=== PATIENT | male | born 1945 | race Caucasian/White ===

== ENCOUNTER 2019-03-27 06:19 | Emergency (ER) | payer MEDICARE, BC ==
[2019-03-27] MEDS ORDERED: SODIUM CHLORIDE 0.9% 1,000 ML IV STA ×2 (06:39)
--- NOTE | 2019-03-27 06:42 | ED ---
Fall HPI - General Chief Complaint: Fall Stated Complaint: fall-head injury Time Seen by Provider: 03/27/19 06:29 Source: patient, RN notes reviewed, old records reviewed Mode of arrival: ambulatory - History of Present Illness Initial Comments: Patient says 73-year-old male who presents emergency department today for evaluation for concerns for fall. Patient reports that he was standing at his chair, felt off balance trying to put the foot rest down on the chair, and fell to the ground. He struck his head on the edge of the windowsill. His awoke to loud noises and noted that Patient was had blood coming from the right side of the scalp. Patient is on aspirin. He reports that he has been feeling intermittently dizzy since the first of the year with multiple bouts of vertigo. Patient denies any chest pain at this time. He reports that he does have a history of tremor. Past medical history is significant for coronary disease, diabetes, hyperlipidemia and hypertension and MIs a prostate disorder. - Related Data Home Medications Medication Instructions Recorded Confirmed ALPRAZolam [Xanax] 0.5 mg PO DAILY PRN 10/26/13 10/26/13 Aspirin 81 mg PO DAILY 10/26/13 10/26/13 Atorvastatin [Lipitor] 80 mg PO HS 10/26/13 10/26/13 Enalapril [Vasotec] 5 mg PO DAILY 10/26/13 10/26/13 Metoprolol Tartrate [Lopressor] 25 mg PO BID 10/26/13 10/26/13 Omeprazole [PriLOSEC] 20 mg PO AC-BRKFST 10/26/13 10/26/13 Tamsulosin HCl [Flomax] 0.4 mg PO DAILY 10/26/13 10/26/13 metFORMIN HCL [Glucophage] 500 mg PO BID 10/26/13 10/26/13 Allergies Allergy/AdvReac Type Severity Reaction Status Date / Time No Known Allergies Allergy Verified 03/27/19 06:32 Review of Systems ROS Statement: Those systems with pertinent positive or pertinent negative responses have been documented in the HPI. ROS Other: All systems not noted in ROS Statement are negative. Past Medical History Past Medical History: Coronary Artery Disease (CAD), Diabetes Mellitus, Hyperlipidemia, Hypertension, Myocardial Infarction ([place]), Prostate Disorder Additional Past Medical History / Comment(s): ulcers History of Any Multi-Drug Resistant Organisms: None Reported Past Surgical History: Back Surgery, Cholecystectomy, Heart Catheterization With Stent Additional Past Surgical History / Comment(s): fistula Past Psychological History: No Psychological Hx Reported Smoking Status: Never smoker Past Alcohol Use History: None Reported Past Drug Use History: None Reported General Exam - General Exam Comments Initial Comments: 73-year-old male. Alert and oriented 3. No significant distress. Anxious, and shaky. Limitations: no limitations General appearance: alert, in no apparent distress Head exam: Present: atraumatic, normocephalic, normal inspection, other (Patient has a 1 cm abrasion over the right posterior scalp and parietal scalp. The wound is closed and bleeding is well-controlled this time.) Eye exam: Present: normal appearance, PERRL, EOMI. Absent: scleral icterus, conjunctival injection, periorbital swelling ENT exam: Present: normal exam, mucous membranes moist Neck exam: Present: normal inspection. Absent: tenderness, meningismus, lymphadenopathy Respiratory exam: Present: normal lung sounds bilaterally. Absent: respiratory distress, wheezes, rales, rhonchi, stridor Cardiovascular Exam: Present: regular rate, normal rhythm, normal heart sounds. Absent: systolic murmur, diastolic murmur, rubs, gallop, clicks GI/Abdominal exam: Present: soft, normal bowel sounds. Absent: distended, tenderness, guarding, rebound, rigid Extremities exam: Present: normal inspection, full ROM, normal capillary refill. Absent: tenderness, pedal edema, joint swelling, calf tenderness Back exam: Present: normal inspection Neurological exam: Present: alert, oriented X3, CN II-XII intact Psychiatric exam: Present: normal affect, normal mood Skin exam: Present: warm, dry, intact, normal color. Absent: rash Course Vital Signs 03/27/19 03/27/19 06:27 07:37 Temperature 97.9 F 99.3 F Pulse Rate 102 H 97 Respiratory 20 16 Rate Blood Pressure 171/68 151/90 O2 Sat by Pulse 99 96 Oximetry Medical Decision Making - Medical Decision Making Physical 73-year-old male, alert and oriented 3. Presented to the emergency department today after feeling off balance and head injury. Patient has no neurological deficits. He does report a history of vertigo and really for the past 2 months. Patient had extensive workup. EKG shows no acute changes. Blo od work was otherwise unremarkable including a negative troponin. Patient's CT of the brain and C-spine are reviewed and negative for any acute intracranial abnormality. Chest x-ray is negative for any acute process. Patient does have a small abrasion over the right scalp but this is too small to close with jess. Patient was ambulating without difficulty to the bathroom while in the ED. He states he has no further pain and besides mild headache at this time. I discussed the Patient did suffer from a mild concussion. Take Motrin or Tylenol for pain. I discussed return parameters and close PCP follow-up. Patient is agreeable to treatment plan will comply. - Lab Data Result diagrams: 03/27/19 06:46 03/27/19 06:46 Lab Results 03/27/19 03/27/19 03/27/19 Range/Units 06:46 06:46 06:46 WBC 7.6 (3.8-10.6) k/uL RBC 4.67 (4.30-5.90) m/uL Hgb 14.2 (13.0-17.5) gm/dL Hct 43.8 (39.0-53.0) % MCV 94.0 (80.0-100.0) fL MCH 30.5 (25.0-35.0) pg MCHC 32.5 (31.0-37.0) g/dL RDW 12.8 (11.5-15.5) % Plt Count 228 (150-450) k/uL Neutrophils % 57 % Lymphocytes % 35 % Monocytes % 5 % Eosinophils % 2 % Basophils % 1 % Neutrophils # 4.3 (1.3-7.7) k/uL Lymphocytes # 2.6 (1.0-4.8) k/uL Monocytes # 0.4 (0-1.0) k/uL Eosinophils # 0.1 (0-0.7) k/uL Basophils # 0.1 (0-0.2) k/uL PT 9.6 (9.0-12.0) sec INR 0.9 (<1.2) APTT 22.9 (22.0-30.0) sec Sodium 139 (137-145) mmol/L Potassium 4.0 (3.5-5.1) mmol/L Chloride 104 (98-107) mmol/L Carbon Dioxide 22 (22-30) mmol/L Anion Gap 13 mmol/L BUN 19 (9-20) mg/dL Creatinine 1.00 (0.66-1.25) mg/dL Est GFR (CKD-EPI)AfAm 85 (>60 ml/min/1.73 sqM) Est GFR (CKD-EPI)NonAf 73 (>60 ml/min/1.73 sqM) Glucose 189 H (74-99) mg/dL POC Glucose (mg/dL) (75-99) mg/dL POC Glu Filler And Trimmer ID Calcium 9.5 (8.4-10.2) mg/dL Magnesium 1.8 (1.6-2.3) mg/dL Total Bilirubin 0.5 (0.2-1.3) mg/dL AST 27 (17-59) U/L ALT 27 (4-49) U/L Alkaline Phosphatase 87 (38-126) U/L Troponin I (0.000-0.034) ng/mL Total Protein 6.9 (6.3-8.2) g/dL Albumin 4.0 (3.5-5.0) g/dL Urine Color Urine Appearance (Clear) Urine pH (5.0-8.0) Ur Specific [place] (1.001-1.035) Urine Protein (Negative) Urine Glucose (UA) (Negative) Urine Ketones (Negative) Urine Blood (Negative) Urine Nitrite (Negative) Urine Bilirubin (Negative) Urine Urobilinogen (<2.0) mg/dL Ur Leukocyte Esterase (Negative) Urine RBC (0-5) /hpf Urine WBC (0-5) /hpf Ur Squamous Epith Cells (0-4) /hpf Urine Mucus (None) /hpf 03/27/19 03/27/19 03/27/19 Range/Units 06:46 07:28 07:47 WBC (3.8-10.6) k/uL RBC (4.30-5.90) m/uL Hgb (13.0-17.5) gm/dL Hct (39.0-53.0) % MCV (80.0-100.0) fL MCH (25.0-35.0) pg MCHC (31.0-37.0) g/dL RDW (11.5-15.5) % Plt Count (150-450) k/uL Neutrophils % % Lymphocytes % % Monocytes % % Eosinophils % % Basophils % % Neutrophils # (1.3-7.7) k/uL Lymphocytes # (1.0-4.8) k/uL Monocytes # (0-1.0) k/uL Eosinophils # (0-0.7) k/uL Basophils # (0-0.2) k/uL PT (9.0-12.0) sec INR (<1.2) APTT (22.0-30.0) sec Sodium (137-145) mmol/L Potassium (3.5-5.1) mmol/L Chloride (98-107) mmol/L Carbon Dioxide (22-30) mmol/L Anion Gap mmol/L BUN (9-20) mg/dL Creatinine (0.66-1.25) mg/dL Est GFR (CKD-EPI)AfAm (>60 ml/min/1.73 sqM) Est GFR (CKD-EPI)NonAf (>60 ml/min/1.73 sqM) Glucose (74-99) mg/dL POC Glucose (mg/dL) 204 H (75-99) mg/dL POC Glu Filler And Trimmer ID Lena Felder Calcium (8.4-10.2) mg/dL Magnesium (1.6-2.3) mg/dL Total Bilirubin (0.2-1.3) mg/dL AST (17-59) U/L ALT (4-49) U/L Alkaline Phosphatase (38-126) U/L Troponin I <0.012 (0.000-0.034) ng/mL Total Protein (6.3-8.2) g/dL Albumin (3.5-5.0) g/dL Urine Color Yellow Urine Appearance Clear (Clear) Urine pH 5.0 (5.0-8.0) Ur Specific [place] 1.024 (1.001-1.035) Urine Protein Negative (Negative) Urine Glucose (UA) 3+ H (Negative) Urine Ketones Trace H (Negative) Urine Blood Negative (Negative) Urine Nitrite Negative (Negative) Urine Bilirubin Negative (Negative) Urine Urobilinogen <2.0 (<2.0) mg/dL Ur Leukocyte Esterase Small H (Negative) Urine RBC 3 (0-5) /hpf Urine WBC 4 (0-5) /hpf Ur Squamous Epith Cells <1 (0-4) /hpf Urine Mucus Rare H (None) /hpf 03/27/19 07:04 EKG performed at 6:40 AM shows normal sinus rhythm normal EKG. Ventricular rate of 70 bpm. Full is 192 ms. QRS duration is 84 ms. QT QTc is 382/435 ms. - Radiology Data Radiology results: report reviewed Chest x-rays negative for any acute cardio pulmonary disease. Clearing of pneumonia and atelectasis on the right lower lobe compared to old exam. CT shows no acute fracture dislocation evident cervical spine. Moderate multilevel malalignment and degenerative basis. No acute intracranial hemorrhage or mass effect or midline shift is seen. Posterior right scalp hematoma measuring 5 mm in thickness. Disposition Clinical Impression: Fall, Head injury, Scalp abrasion Disposition: HOME SELF-CARE Condition: Good Instructions (If sedation given, give patient instructions): Concussion (ED) Additional Instructions: Patient advised to rest, remain hydrated today. Recommended following up with the primary care physician within the next 1-2 days. Return to the emergency d epartment if any alarming signs or symptoms occur. Recommended he can Tylenol or Motrin for headache or pain. Is patient prescribed a controlled substance at d/c from ED?: No Referrals: Nicholas Padilla MD [Primary Care Provider] - 1-2 days Time of Disposition: 09:03
[2019-03-27 06:56] LABS: Basophils # (A) 0.1 k/uL (0-0.2); Basophils % (A) 1 %; Eosinophils # (A) 0.1 k/uL (0-0.7); Eosinophils % (A) 2 %; HCT 43.8 % (39.0-53.0); HGB 14.2 gm/dL (13.0-17.5); Lymphocytes # (A) 2.6 k/uL (1.0-4.8); Lymphocytes % (A) 35 %; MCH 30.5 pg (25.0-35.0); MCHC 32.5 g/dL (31.0-37.0); Mean Platelet Volume 7.5; Monocytes # (A) 0.4 k/uL (0-1.0); Monocytes % (A) 5 %; Neutrophils # (A) 4.3 k/uL (1.3-7.7); Neutrophils % (A) 57 %; Platelet Count 228 k/uL (150-450); RBC 4.67 m/uL (4.30-5.90); RDW 12.8 % (11.5-15.5); WBC 7.6 k/uL (3.8-10.6)
--- NOTE | 2019-03-27 07:07 | XR ---
EXAMINATION TYPE: XR chest 2V DATE OF EXAM: 03/27/2019 COMPARISON: 01/21/2013 HISTORY: Syncope TECHNIQUE: FINDINGS: There is no heart failure nor confluent pneumonic infiltrate. Costophrenic angles are clear . Bony thorax is intact. IMPRESSION: No active cardiopulmonary disease. There is clearing of the pneumonia and atelectasis rig ht lower lobe compared to old exam.
[2019-03-27 07:10] LABS: Calcium 9.5 mg/dL (8.4-10.2); INR 0.9 (<1.2); Magnesium 1.8 mg/dL (1.6-2.3); Partial Thromboplastin Time 22.9 sec (22.0-30.0); Prothrombin Time 9.6 sec (9.0-12.0); Total Bilirubin 0.5 mg/dL (0.2-1.3); Total Protein 6.9 g/dL (6.3-8.2)
[2019-03-27 07:30] LABS: Glucose,Whole Blood 204 mg/dL (75-99)
[2019-03-27 07:37] VITALS: RESP 16; TEMP 99.3
[2019-03-27 08:08] LABS: Appearance,Urine Clear (Clear); Bilirubin,Urine Negative (Negative); Blood,Urine Negative (Negative); Color,Urine Yellow; Glucose,Urine (UA) 3+ (Negative); Ketones,Urine Trace (Negative); Leukocyte Esterase,Urine Small (Negative); Mucus,Urine Rare /hpf; Nitrite,Urine Negative (Negative); Protein,Urine Negative (Negative); RBC,Urine 3 /hpf (0-5); Specific Gravity,Urine 1.024 (1.001-1.035); Squamous Epithelial Cell,Urine <1 /hpf (0-4); Urobilinogen,Urine <2.0 mg/dL (<2.0); WBC,Urine 4 /hpf (0-5)
--- NOTE | 2019-03-27 08:24 | CT ---
EXAMINATION TYPE: CT brain rahul garrido DATE OF EXAM: 03/27/2019 COMPARISON: NONE HISTORY: fall, head and neck pain. Facial laceration. CT DLP: 1621.8 mGycm. Automated Exposure Control for Dose Reduction was Utilized. TECHNIQUE: CT scan of the head and cervical spine are performed without contrast. FINDINGS: There is no acute intracranial hemorrhage, mass effect, or midline shift identified. The ventricles and sulci are symmetrically prominent compatible with age-related. The globes are intact and the visualized sinuses are clear. Punctate focus of subcutaneous emphysema in the right posterio r occipital scalp with 5 mm greatest thickness scalp contusion and small hematoma. No calvarial fract ure seen deep to this injury. Cervical spine is visualized in its entirety from C1 through upper thoracic levels and demonstrates s atisfactory vertebral body heights. Grade 1 anterolisthesis of C3 on C4 and minimal retrolisthesis o f C4 on C5 and C5 on C6. Posterior disc osteophyte complexes from C4 through C7. Multilevel uncoverte bral hypertrophy and facet arthropathy with variable degrees of neural foraminal narrowing. Degenerat shaan narrowing of the atlantodental interval. Prevertebral soft tissue appears within normal limits. The C1-C2 articulation is unremarkable. Incidentally noted small lipoma of the left upper thoracic s kin surface. Extensive atheromatous changes of the carotid arteries. IMPRESSION: 1. There is no acute fracture or dislocation evident in the cervical spine. Moderate multilevel malal ignment, likely on a degenerative basis. 2. No acute intracranial hemorrhage, mass effect, or midline shift is seen. 3. Posterior right occipital scalp hematoma measuring 5 mm in greatest thickness.
[2019-03-27 09:31] VITALS: BP 143/73; PULSE 76
== END 2019-03-27 09:25 | disposition home or self-care (01) ==
LOC: EC 06:19
DX: S00.01XA Abrasion of scalp, initial encounter (principal); R42 Dizziness and giddiness; I25.10 Atherosclerotic heart disease of native coronary artery without angina pectoris; E11.9 Type 2 diabetes mellitus without complications; E78.5 Hyperlipidemia, unspecified; I10 Essential (primary) hypertension; I25.2 Old myocardial infarction; N42.9 Disorder of prostate, unspecified; Z79.82 Long term (current) use of aspirin; Z79.84 Long term (current) use of oral hypoglycemic drugs; Z79.899 Other long term (current) drug therapy; Z86.69 Personal history of other diseases of the nervous system and sense organs; Z95.5 Presence of coronary angioplasty implant and graft; W07.XXXA Fall from chair, initial encounter; Y93.89 Activity, other specified; Y92.009 Unspecified place in unspecified non-institutional (private) residence as the place of occurrence of the external cause
CPT/HCPCS: 36415; 70450; 71046; 72125; 80053; 81001; 83735; 84484; 85025; 85610; 85730; 93005; 96360; 99284

== ENCOUNTER 2019-08-24 09:49 | Emergency (ER) | payer MEDICARE, BC ==
[2019-08-24] MEDS ORDERED: MORPHINE SULFATE 4 MG/ML SYRINGE IV STA (10:06)
[2019-08-24] MEDS ORDERED: ONDANSETRON 4 MG/2 ML VIAL IVP STA (10:06)
[2019-08-24] MEDS ORDERED: KETOROLAC 30 MG/ML 1 ML VIAL IVP STA (10:06)
[2019-08-24] MEDS ORDERED: SODIUM CHLORIDE 0.9% 2,000 ML IV STA (10:06)
[2019-08-24] MEDS ORDERED: SODIUM CHLORIDE 0.9% 1,000 ML IV STA (10:06)
--- NOTE | 2019-08-24 10:09 | ED ---
Abdominal Pain HPI - General Chief Complaint: Abdominal Pain Stated Complaint: abd/back pain Time Seen by Provider: 08/24/19 09:56 Source: patient, family, RN notes reviewed, old records reviewed Mode of arrival: wheelchair Limitations: no limitations - History of Present Illness Initial Comments: 73-year-old male presents emergency department today with onset of left lower quadrant abdominal pain with radiation towards his back starting this morning. [facility] bowel movements. He has been complaining of increased burping did have an episode of vomiting today. Patient has had no recorded fevers or chills. He reports he's had a history of kidney stones in the past and history of diverticulitis. Patient states that he has had no chest pain or worsening shortness of breath. - Related Data Home Medications Medication Instructions Recorded Confirmed ALPRAZolam [Xanax] 0.5 mg PO BID 10/26/13 08/24/19 Aspirin 81 mg PO DAILY 10/26/13 08/24/19 Metoprolol Tartrate [Lopressor] 25 mg PO BID 10/26/13 08/24/19 Tamsulosin HCl [Flomax] 0.4 mg PO DAILY 10/26/13 08/24/19 metFORMIN HCL [Glucophage] 500 mg PO BID 10/26/13 08/24/19 Atorvastatin [Lipitor] 20 mg PO Q48H 08/24/19 08/24/19 Atorvastatin [Lipitor] 40 mg PO Q48H 08/24/19 08/24/19 Enalapril [Vasotec] 10 mg PO DAILY 08/24/19 08/24/19 Multivitamins, Thera [Multivitamin 1 tab PO DAILY 08/24/19 08/24/19 (formulary)] [place]-3 Acid Ethyl Esters [Lovaza] 2 gm PO BID 08/24/19 08/24/19 Allergies Allergy/AdvReac Type Severity Reaction Status Date / Time No Known Allergies Allergy Verified 08/24/19 10:46 Review of Systems ROS Statement: Those systems with pertinent positive or pertinent negative responses have been documented in the HPI. ROS Other: All systems not noted in ROS Statement are negative. Past Medical History Past Medical History: Coronary Artery Disease (CAD), Diabetes Mellitus, Hyperlipidemia, Hypertension, Myocardial Infarction ([place]), Prostate Disorder Additional Past Medical History / Comment(s): ulcers History of Any Multi-Drug Resistant Organisms: None Reported Past Surgical History: Back Surgery, Cholecystectomy, Heart Catheterization With Stent Additional Past Surgical History / Comment(s): fistula Past Psychological History: No Psychological Hx Reported Smoking Status: Never smoker Past Alcohol Use History: None Reported Past Drug Use History: None Reported General Exam - General Exam Comments Initial Comments: 73 -year-old male. Limitations: no limitations General appearance: alert, in no apparent distress Head exam: Present: atraumatic, normocephalic, normal inspection Eye exam: Present: normal appearance, PERRL, EOMI. Absent: scleral icterus, conjunctival injection, periorbital swelling ENT exam: Present: normal exam, mucous membranes moist Neck exam: Present: normal inspection. Absent: tenderness, meningismus, lymphadenopathy Respiratory exam: Present: normal lung sounds bilaterally. Absent: respiratory distress, wheezes, rales, rhonchi, stridor Cardiovascular Exam: Present: regular rate, normal rhythm, normal heart sounds. Absent: systolic murmur, diastolic murmur, rubs, gallop, clicks GI/Abdominal exam: Present: soft, tenderness (LLQ tenderness), normal bowel sounds. Absent: distended, guarding, rebound, rigid Extremities exam: Present: normal inspection, full ROM, normal capillary refill. Absent: pedal edema, joint swelling, calf tenderness Back exam: Present: normal inspection Neurological exam: Present: alert, oriented X3, CN II-XII intact Psychiatric exam: Present: normal affect, normal mood Skin exam: Present: warm, dry, intact, normal color. Absent: rash Course Vital Signs 08/24/19 08/24/19 08/24/19 09:52 11:53 12:47 Temperature 97.8 F Pulse Rate 85 77 76 Respiratory 18 18 18 Rate Blood Pressure 148/88 138/79 135/88 O2 Sat by Pulse 96 95 96 Oximetry Medical Decision Making - Medical Decision Making 73-year-old male presents emergency department today for evaluation for onset of left-sided flank pain onset of nausea and vomiting this morning. Patient had some left lower quadrant tenderness. Is benign includes upper obtained. Patient was found to have hematuria. Patient has no signs of infection. Mildly increased creatinine at this time. CT abdomen and pelvis without contrast was completed shows recently passed left-sided stone with evidence of stones within the urinary bladder. There is mild hydronephrosis on the left side from the recently passed stone. On reevaluation after fluids and pain medication he is resting comfortably in bed states she has no further pain. I discussed that the discharging the Patient with a short course of pain medicine and he is starting taking Flomax. Advised to continue this medication and return if there is any worsening signs or symptoms. Patient and patient's are agreeable treatment plan. Discharged with a strainer. - Lab Data Result diagrams: 08/24/19 10:14 08/24/19 10:14 Lab Results 08/24/19 08/24/19 08/24/19 Range/Units 10:14 10:14 10:14 WBC 10.2 (3.8-10.6) k/uL RBC 4.80 (4.30-5.90) m/uL Hgb 14.9 (13.0-17.5) gm/dL Hct 45.0 (39.0-53.0) % MCV 93.8 (80.0-100.0) fL MCH 31.0 (25.0-35.0) pg MCHC 33.1 (31.0-37.0) g/dL RDW 12.7 (11.5-15.5) % Plt Count 267 (150-450) k/uL Neutrophils % 79 % Lymphocytes % 17 % Monocytes % 4 % Eosinophils % 1 % Basophils % 0 % Neutrophils # 8.0 H (1.3-7.7) k/uL Lymphocytes # 1.7 (1.0-4.8) k/uL Monocytes # 0.4 (0-1.0) k/uL Eosinophils # 0.1 (0-0.7) k/uL Basophils # 0.0 (0-0.2) k/uL PT 10.1 (9.0-12.0) sec INR 1.0 (<1.2) APTT 22.9 (22.0-30.0) sec Sodium 138 (137-145) mmol/L Potassium 4.6 (3.5-5.1) mmol/L Chloride 102 (98-107) mmol/L Carbon Dioxide 23 (22-30) mmol/L Anion Gap 13 mmol/L BUN 20 (9-20) mg/dL Creatinine 1.26 H (0.66-1.25) mg/dL Est GFR (CKD-EPI)AfAm 64 (>60 ml/min/1.73 sqM) Est GFR (CKD-EPI)NonAf 55 (>60 ml/min/1.73 sqM) Glucose 237 H (74-99) mg/dL Calcium 9.9 (8.4-10.2) mg/dL Total Bilirubin 0.8 (0.2-1.3) mg/dL AST 59 (17-59) U/L ALT 58 H (4-49) U/L Alkaline Phosphatase 78 (38-126) U/L Total Protein 7.3 (6.3-8.2) g/dL Albumin 4.5 (3.5-5.0) g/dL Amylase 51 (30-110) U/L Lipase 168 (23-300) U/L Urine Color Urine Appearance (Clear) Urine pH (5.0-8.0) Ur Specific [place] (1.001-1.035) Urine Protein (Negative) Urine Glucose (UA) (Negative) Urine Ketones (Negative) Urine Blood (Negative) Urine Nitrite (Negative) Urine Bilirubin (Negative) Urine Urobilinogen (<2.0) mg/dL Ur Leukocyte Esterase (Negative) Urine RBC (0-5) /hpf Urine WBC (0-5) /hpf Ur Squamous Epith Cells (0-4) /hpf Urine Mucus (None) /hpf 08/24/19 Range/Units 11:38 WBC (3.8-10.6) k/uL RBC (4.30-5.90) m/uL Hgb (13.0-17.5) gm/dL Hct (39.0-53.0) % MCV (80.0-100.0) fL MCH (25.0-35.0) pg MCHC (31.0-37.0) g/dL RDW (11.5-15.5) % Plt Count (150-450) k/uL Neutrophils % % Lymphocytes % % Monocytes % % Eosinophils % % Basophils % % Neutrophils # (1.3-7.7) k/uL Lymphocytes # (1.0-4.8) k/uL Monocytes # (0-1.0) k/uL Eosinophils # (0-0.7) k/uL Basophils # (0-0.2) k/uL PT (9.0-12.0) sec INR (<1.2) APTT (22.0-30.0) sec Sodium (137-145) mmol/L Potassium (3.5-5.1) mmol/L Chloride (98-107) mmol/L Carbon Dioxide (22-30) mmol/L Anion Gap mmol/L BUN (9-20) mg/dL Creatinine (0.66-1.25) mg/dL Est GFR (CKD-EPI)AfAm (>60 ml/min/1.73 sqM) Est GFR (CKD-EPI)NonAf (>60 ml/min/1.73 sqM) Glucose (74-99) mg/dL Calcium (8.4-10.2) mg/dL Total Bilirubin (0.2-1.3) mg/dL AST (17-59) U/L ALT (4-49) U/L Alkaline Phosphatase (38-126) U/L Total Protein (6.3-8.2) g/dL Albumin (3.5-5.0) g/dL Amylase (30-110) U/L Lipase (23-300) U/L Urine Color Yellow Urine Appearance Clear (Clear) Urine pH 5.0 (5.0-8.0) Ur Specific [place] 1.021 (1.001-1.035) Urine Protein Trace H (Negative) Urine Glucose (UA) 2+ H (Negative) Urine Ketones 1+ H (Negative) Urine Blood Moderate H (Negative) Urine Nitrite Negative (Negative) Urine Bilirubin Negative (Negative) Urine Urobilinogen <2.0 (<2.0) mg/dL Ur Leukocyte Esterase Trace H (Negative) Urine RBC 126 H (0-5) /hpf Urine WBC 4 (0-5) /hpf Ur Squamous Epith Cells 1 (0-4) /hpf Urine Mucus Rare H (None) /hpf - Radiology Data Radiology results: report reviewed Suspect recently passed left-sided renal calculus with mild residual hydro nephrosis noted. Numerous colliculi within the urinary bladder. Prostate gland enlargement. fixed hiatal hernia. Disposition Clinical Impression: Acute flank pain, Bladder stone Disposition: HOME SELF-CARE Condition: Good Instructions (If sedation given, give patient instructions): Flank Pain (ED), Ureteral Stones (ED) Additional Instructions: Please use medication as discussed and continue your flomax. Please follow up with family doctor if symptoms have not improved over the next two days. Please return to the emergency room if your symptoms increase or worsen or for any other concerns. Is patient prescribed a controlled substance at d/c from ED?: No Referrals: Nicholas Padilla MD [Primary Care Provider] - 1-2 days Time of Disposition: 13:13
[2019-08-24 10:44] LABS: Basophils % (A) 0 %; Eosinophils # (A) 0.1 k/uL (0-0.7); Eosinophils % (A) 1 %; HGB 14.9 gm/dL (13.0-17.5); Lymphocytes # (A) 1.7 k/uL (1.0-4.8); Lymphocytes % (A) 17 %; MCHC 33.1 g/dL (31.0-37.0); MCV 93.8 fL (80.0-100.0); Mean Platelet Volume 8.1; Monocytes # (A) 0.4 k/uL (0-1.0); Monocytes % (A) 4 %; Neutrophils % (A) 79 %; Platelet Count 267 k/uL (150-450); RDW 12.7 % (11.5-15.5); WBC 10.2 k/uL (3.8-10.6)
[2019-08-24 10:46] VITALS: RESP 18
[2019-08-24 10:51] LABS: Partial Thromboplastin Time 22.9 sec (22.0-30.0); Prothrombin Time 10.1 sec (9.0-12.0)
[2019-08-24 10:53] LABS: Albumin 4.5 g/dL (3.5-5.0); Calcium 9.9 mg/dL (8.4-10.2); Potassium 4.6 mmol/L (3.5-5.1); Total Bilirubin 0.8 mg/dL (0.2-1.3); Total Protein 7.3 g/dL (6.3-8.2)
[2019-08-24 12:41] LABS: Appearance,Urine Clear (Clear); Bilirubin,Urine Negative (Negative); Blood,Urine Moderate (Negative); Color,Urine Yellow; Glucose,Urine (UA) 2+ (Negative); Ketones,Urine 1+ (Negative); Leukocyte Esterase,Urine Trace (Negative); Mucus,Urine Rare /hpf; Nitrite,Urine Negative (Negative); Protein,Urine Trace (Negative); RBC,Urine 126 /hpf (0-5); Specific Gravity,Urine 1.021 (1.001-1.035); Squamous Epithelial Cell,Urine 1 /hpf (0-4); Urobilinogen,Urine <2.0 mg/dL (<2.0); WBC,Urine 4 /hpf (0-5)
--- NOTE | 2019-08-24 12:54 | CT ---
EXAMINATION TYPE: CT abdomen pelvis wo con DATE OF EXAM: 08/24/2019 COMPARISON: 11/06/2013 HISTORY: LLQ pain, Lt flank pain CT DLP: 1108 mGycm Examination of the solid and hollow viscera is limited given the lack of contrast. FINDINGS: LUNG BASES: No evidence for nodule. No evidence for infiltrate. Moderate fixed hiatal hernia noted. LIVER/GB: The gallbladder is unremarkable. No space-occupying hepatic lesion. PANCREAS: No pancreatic mass identified. No inflammatory process seen. SPLEEN: No evidence for splenomegaly. No intrasplenic lesions seen. ADRENALS: No adrenal nodules identified. No evidence for thickening. KIDNEYS: Numerous calculi identified within the urinary bladder. Mild prominence of left renal collec ting system without obstructing calculus likely reflect recently passed calculus. No renal calculi id entified at this time. No renal masses identified. BOWEL: Appendix has a normal appearance. No evidence of bowel obstruction. No inflammatory process. M oderate sigmoid diverticulosis without diverticulitis. Lymph nodes: No evidence for adenopathy greater than 1 cm. Abdominal aorta: Atheromatous changes seen. No evidence for aneurysm. Genital organs: Prostate gland enlargement noted. Other: Fat-containing umbilical hernia. IMPRESSION: 1. Suspect recently passed left-sided renal calculus with mild residual hydronephrosis noted. 2. Numerous calculi within the urinary bladder. 3 prostate gland enlargement. 4. Fixed hiatal hernia.
[2019-08-24] MEDS ORDERED: ONDANSETRON 4 MG ODT STARTER PACK 2 TAB BTL PO STA (13:15)
[2019-08-24] MEDS ORDERED: ACET/COD 300 MG/30 MG STARTER PACK 6 TAB BTL PO STA (13:15)
[2019-08-24 13:52] VITALS: BP 134/78; PULSE 68; TEMP 98.4
== END 2019-08-24 14:13 | disposition home or self-care (01) ==
LOC: EC 09:49
DX: N21.0 Calculus in bladder (principal); N13.30 Unspecified hydronephrosis; I25.10 Atherosclerotic heart disease of native coronary artery without angina pectoris; E11.9 Type 2 diabetes mellitus without complications; E78.5 Hyperlipidemia, unspecified; I10 Essential (primary) hypertension; I25.2 Old myocardial infarction; N40.0 Benign prostatic hyperplasia without lower urinary tract symptoms; Z79.82 Long term (current) use of aspirin; Z79.84 Long term (current) use of oral hypoglycemic drugs; Z79.899 Other long term (current) drug therapy; Z95.5 Presence of coronary angioplasty implant and graft; Z87.442 Personal history of urinary calculi; Z90.49 Acquired absence of other specified parts of digestive tract
CPT/HCPCS: 36415; 80053; 82150; 83690; 85025; 85610; 85730; 81001; 74176; 99285; 96374; 96375 ×2; 96361 ×2; J2270; J2405; J1885; S0119

== ENCOUNTER → 2022-10-08 | Outpatient (CLI) | payer MEDICARE, BC ==
[~2022-10-08] MED LIST: IODINE/POTASSIUM IODIDE 14 ML BOTTLE ONE
--- NOTE | 2022-10-09 05:50 | NM ---
EXAMINATION TYPE: NM DatScan Brain SPECT DATE OF EXAM: 10/08/2022 COMPARISON: CT 03/27/2019 CLINICAL INDICATION: Male, 77 years old with history of R25.1 tremor; TECHNIQUE: 10 drops of Lugol's solution was administered 1 hour prior to injection as a thyroid bloc jennifer agent. After the administration of 4.39 mCi I-123 Ioflupane DaTscan. Images obtained 3 hours p ost injection. SPECT images of the brain were acquired with axial and coronal reconstructions. FINDINGS: While there is symmetric uptake in the bilateral corpus striata, minimal increased background activit y is noted. IMPRESSION: Symmetric activity in the bilateral corpus striata. No definite findings to suggest Parkinson's disea se at this time. However, given the slight increased background activity, consider short interval fol low-up to exclude early changes.
== END | disposition home or self-care (01) ==
LOC: RADNMMAIN 11:03
PROVIDERS: ATTEND Psychiatry & Neurology Neurology
DX: R25.1 Tremor, unspecified (principal); R29.898 Other symptoms and signs involving the musculoskeletal system
CPT/HCPCS: 78803; A9584

== ENCOUNTER 2023-10-13 19:04 | Emergency (ER) | payer MEDICARE, BC ==
--- NOTE | 2023-10-13 19:33 | ED ---
Abdominal Pain HPI - General Source: patient, family, RN notes reviewed <Ann Wiseman - Last Filed: 10/13/23 19:32> - General Source: patient, family, RN notes reviewed Mode of arrival: ambulatory Limitations: no limitations - History of Present Illness MD Complaint: abdominal pain <Nanette Lee - Last Filed: 10/14/23 03:11> - General Chief Complaint: Abdominal Pain Stated Complaint: stomach pain/vomitting Time Seen by Provider: 10/13/23 19:21 - History of Present Illness Initial Comments: Quick [id number] male presents the emergency department chief complaint of epigastric abdominal pain and nausea vomiting that occurred at approximately 1730 this evening. States the pain is intermittent and will last for roughly 30 to 45 minutes and the pain is present. Denies radiation of pain. Denies h ematemesis. Denies chest pain, shortness of breath or difficulty breathing. (Ann Wiesman) This is an 78-year-old male who presents to the emergency department for abdominal pain. States that it started around 6 PM this evening. Pain is in the mid and upper abdomen and described as sharp. He had been eating dinner shortly beforehand and is unsure if it may have been related. Reports associated nausea and vomiting. The only time he had pain like this in the past was when he was having problems with gallstones. States that he no longer has his gallbladder had this removed in 2011. He has not had any problems with diarrhea or constipation. (Nanette Lee) - Related Data Home Medications Medication Instructions Recorded Confirmed ALPRAZolam [Xanax] 0.5 mg PO BID 10/26/13 08/24/19 Aspirin 81 mg PO DAILY 10/26/13 08/24/19 Metoprolol Tartrate [Lopressor] 25 mg PO BID 10/26/13 08/24/19 Tamsulosin HCl [Flomax] 0.4 mg PO DAILY 10/26/13 08/24/19 metFORMIN HCL [Glucophage] 500 mg PO BID 10/26/13 08/24/19 Atorvastatin [Lipitor] 20 mg PO Q48H 08/24/19 08/24/19 Atorvastatin [Lipitor] 40 mg PO Q48H 08/24/19 08/24/19 Enalapril [Vasotec] 10 mg PO DAILY 08/24/19 08/24/19 Multivitamins, Thera [Multivitamin 1 tab PO DAILY 08/24/19 08/24/19 (formulary)] Cullen-3 Acid Ethyl Esters [Lovaza] 2 gm PO BID 08/24/19 08/24/19 Allergies Allergy/AdvReac Type Severity Reaction Status Date / Time No Known Allergies Allergy Verified 10/13/23 19:45 Review of Systems ROS Other: All systems not noted in ROS Statement are negative. <Ann Wiseman - Last Filed: 10/13/23 19:32> ROS Other: All systems not noted in ROS Statement are negative. <Nanette Lee - Last Filed: 10/14/23 03:11> ROS Statement: Those systems with pertinent positive or pertinent negative responses have been documented in the HPI. Past Medical History Past Medical History: Coronary Artery Disease (CAD), Diabetes Mellitus, Hyperlipidemia, Hypertension, Myocardial Infarction (CA), Prostate Disorder Additional Past Medical History / Comment(s): ulcers History of Any Multi-Drug Resistant Organisms: None Reported Past Surgical History: Back Surgery, Cholecystectomy, Heart Catheterization With Stent Additional Past Surgical History / Comment(s): fistula Past Psychological History: No Psychological Hx Reported Past Alcohol Use History: None Reported Past Drug Use History: None Reported <Ann Wiseman - Last Filed: 10/13/23 19:32> General Exam <Ann Wiseman - Last Filed: 10/13/23 19:32> Limitations: no limitations General appearance: alert, in no apparent distress Head exam: Present: atraumatic, normocephalic, normal inspection Respiratory exam: Present: normal lung sounds bilaterally. Absent: respiratory distress, wheezes, rales, rhonchi, stridor Cardiovascular Exam: Present: regular rate, normal rhythm, normal heart sounds. Absent: systolic murmur, diastolic murmur, rubs, gallop, clicks GI/Abdominal exam: Present: soft, tenderness (mid and upper abdomen). Absent: distended Neurological exam: Present: alert, oriented X3, CN II-XII intact Psychiatric exam: Present: normal affect, normal mood Skin exam: Present: warm, dry, intact, normal color. Absent: rash <Nanette Lee - Last Filed: 10/14/23 03:11> - General Exam Comments Initial Comments: Visual Physical Exam Vital signs reviewed General: Well-appearing, nontoxic, no acute distress. Head: Normocephalic, atraumatic Eyes: PERRLA, EOMI ENT: Airway patent Chest: Nonlabored breathing Skin: No visual rash, normal skin tone Neuro: Alert and oriented 3 Musculoskeletal: No gross abnormalities (Ann Wiseman) Course Vital Signs 10/13/23 10/13/23 10/14/23 19:41 21:34 01:02 Temperature 98.0 F 97 F L Pulse Rate 91 83 122 H Respiratory 20 16 20 Rate Blood Pressure 132/77 123/68 149/76 O2 Sat by Pulse 95 93 L 98 Oximetry Medical Decision Making <Ann Wiseman - Last Filed: 10/13/23 19:32> - Lab Data Result diagrams: 10/13/23 19:57 10/13/23 19:57 - Radiology Data Radiology results: report reviewed, image reviewed <Nanette Lee - Last Filed: 10/14/23 03:11> - Medical Decision Making I completed the quick note portion of this chart signed Ann Wiseman PA-C (Ann Wiseman) This is an 78 year old male who presents to the emergency department for abdominal pain. Was pt. sent in by a medical professional or institution? @ -No Did you speak to anyone other than the patient for history? @ -No Did you review nursing and triage notes? @ -Yes, and I agree, it is accurate with regards to the patient's symptoms. Were old charts reviewed? @ -No Differential Diagnosis? @ -Differential Abdominal Pain Men: Appendicitis, cholecystitis, diverticulosis, ischemic bowel, pancreatitis, hep atitis, UTI, gastroenteritis, AAA, incarcerated hernia, bowel obstruction, constipation, inflammatory bowel, hepatitis, peptic ulcer disease, splenic infarction, perforated viscus, testicular torsion, this is not meant to be an all-inclusive list EKG interpreted by me (3pts min.)? @ -EKG interpreted by me demonstrating the following: Sinus tachycardia. Ventricular rate 107 bpm, [place] interval 185 ms, QRS duration 88 ms, QTc 408 ms. X-rays interpreted by me (1pt min.)? @ -Not obtained CT interpreted by me (1pt min.)? @ -CT scan of the abdomen and pelvis obtained. My interpretation identifies no small bowel loop dilation. U/S interpreted by me (1pt. min.)? @ -Ultrasound of the abdomen obtained. My interpretation identifies no CBD dilation. What testing was considered but not performed? (CT, X-rays, U/S, labs)? Why? @ -None What meds were considered but not given? Why? @ -None Did you discuss the management of the patient with other professionals? @ -Yes, Dr. Padilla, who requested transfer to another facility with GI available due to the significant level of his pancreatic enzymes. Did you reconcile home meds? @ -No Was smoking cessation discussed for >3mins.? @ -No Was critical care preformed (if so, how long)? @ -No Were there social determinants of health that impacted care today? How? (Homelessness, low income, unemployed, alcoholism, drug addiction, transportation, low edu. Level, literacy, decrease access to med. care, senior care, rehab)? @ -No Was there de-escalation of care discussed even if they declined? (Discuss DNR or withdrawal of care, Hospice)? @ -No What co-morbidities impacted this encounter? (DM, HTN, Smoking, COPD, CAD, Cancer, CVA, Hep., AIDS, mental health diagnosis, sleep apnea, morbid obesity)? @ -CAD, DM, HLD, HTN Was patient admitted / discharged? @ -Transferred. Lab work demonstrates an elevated lactic acid of 4.5. Findings are also consistent with pancreatitis based on a lipase of greater than 20,000 and amylase of 672. Urinalysis also demonstrates a large amount of blood. CT scan of the abdomen and pelvis is positive for acute interstitial pancreatitis with moderate inflammation. No discrete fluid collection is identified. There is a possible punctate 5 mm stone in the distal bile duct, however the gallbladder is surgically absent. We subsequently proceeded with an ultrasound of the abdomen to further evaluate this area. This area was not visualized on ultrasound and the CBD appeared within normal limits. Per this interpretation they thought this was more likely to be a surgical clip. On a separate note he was also noted to have mild circumferential bladder wall thickening, likely secondary to bladder wall hypertrophy as well as multiple spiculated bladder st ones that have enlarged compared to 2020 and a urology referral was advised with this regard. Case discussed with Dr. Padilla, patient's PCP, who requested transfer to a facility with GI available. Patient transferred to [facility] as an ED to ED transfer. Dr. Currie is the accepting ED provider. Case discussed with ED attending Dr. Goode. Undiagnosed new problem with uncertain prognosis? @ -None Drug Therapy requiring intensive monitoring for toxicity (Heparin, Nitro, Insulin, Cardizem)? @ -None Were any procedures done? @ -None Diagnosis/symptom? @ -Pancreatitis Acute, or Chronic, or Acute on Chronic? @ -Acute Uncomplicated (without systemic symptoms) or Complicated (systemic symptoms)? @ -Complicated Side effects of treatment? @ -None Exacerbation, Progression, or Severe Exacerbation] @ -Not applicable Poses a threat to life or bodily function? @ -Yes, can lead to infection and (Nanette Lee) - Lab Data Lab Results 10/13/23 10/13/23 10/13/23 Range/Units 19:57 19:57 19:57 WBC 9.7 (3.8-10.6) k/uL RBC 4.67 (4.30-5.90) m/uL Hgb 14.9 (13.0-17.5) gm/dL Hct 44.5 (39.0-53.0) % MCV 95.4 (80.0-100.0) fL MCH 32.0 (25.0-35.0) pg MCHC 33.5 (31.0-37.0) g/dL RDW 13.2 (11.5-15.5) % Plt Count 291 (150-450) k/uL MPV 7.9 Neutrophils % 67 % Lymphocytes % 28 % Monocytes % 3 % Eosinophils % 1 % Basophils % 0 % Neutrophils # 6.5 (1.3-7.7) k/uL Lymphocytes # 2.7 (1.0-4.8) k/uL Monocytes # 0.3 (0-1.0) k/uL Eosinophils # 0.1 (0-0.7) k/uL Basophils # 0.0 (0-0.2) k/uL PT 10.2 (10.0-12.5) sec INR 0.9 (<1.2) APTT 23.0 (22.0-30.0) sec Sodium 142 (137-145) mmol/L Potassium 4.5 (3.5-5.1) mmol/L Chloride 108 H (98-107) mmol/L Carbon Dioxide 21 L (22-30) mmol/L Anion Gap 13 mmol/L BUN 27 H (9-20) mg/dL Creatinine 1.37 H (0.66-1.25) mg/dL Est GFR (CKD-EPI)AfAm 56 (>60 ml/min/1.73 sqM) Est GFR (CKD-EPI)NonAf 48 (>60 ml/min/1.73 sqM) Glucose 164 H (74-99) mg/dL Lactic Ac Sepsis Rflx Plasma Lactic Acid Pramod (0.7-2.0) mmol/L Calcium 10.6 H (8.4-10.2) mg/dL Magnesium 1.7 (1.6-2.3) mg/dL Total Bilirubin 1.0 (0.2-1.3) mg/dL AST 144 H (17-59) U/L ALT 52 H (4-49) U/L Alkaline Phosphatase 70 (38-126) U/L Troponin I (0.000-0.034) ng/mL Total Protein 7.4 (6.3-8.2) g/dL Albumin 4.6 (3.5-5.0) g/dL Amylase (30-110) U/L Lipase >60839 H (23-300) U/L Urine Color Urine Appearance (Clear) Urine pH (5.0-8.0) Ur Specific [place] (1.001-1.035) Urine Protein (Negative) Urine Glucose (UA) (Negative) Urine Ketones (Negative) Urine Blood (Negative) Urine Nitrite (Negative) Urine Bilirubin (Negative) Urine Urobilinogen (<2.0) mg/dL Ur Leukocyte Esterase (Negative) Urine RBC (0-5) /hpf Urine WBC (0-5) /hpf Ur Squamous Epith Cells (0-4) /hpf Urine Mucus (None) /hpf 10/13/23 10/13/23 10/13/23 Range/Units 19:57 19:57 20:23 WBC (3.8-10.6) k/uL RBC (4.30-5.90) m/uL Hgb (13.0-17.5) gm/dL Hct (39.0-53.0) % MCV (80.0-100.0) fL MCH (25.0-35.0) pg MCHC (31.0-37.0) g/dL RDW (11.5-15.5) % Plt Count (150-450) k/uL MPV Neutrophils % % Lymphocytes % % Monocytes % % Eosinophils % % Basophils % % Neutrophils # (1.3-7.7) k/uL Lymphocytes # (1.0-4.8) k/uL Monocytes # (0-1.0) k/uL Eosinophils # (0-0.7) k/uL Basophils # (0-0.2) k/uL PT (10.0-12.5) sec INR (<1.2) APTT (22.0-30.0) sec Sodium (137-145) mmol/L Potassium (3.5-5.1) mmol/L Chloride (98-107) mmol/L Carbon Dioxide (22-30) mmol/L Anion Gap mmol/L BUN (9-20) mg/dL Creatinine (0.66-1.25) mg/dL Est GFR (CKD-EPI)AfAm (>60 ml/min/1.73 sqM) Est GFR (CKD-EPI)NonAf (>60 ml/min/1.73 sqM) Glucose (74-99) mg/dL Lactic Ac Sepsis Rflx Plasma Lactic Acid Pramod 4.5 H* (0.7-2.0) mmol/L Calcium (8.4-10.2) mg/dL Magnesium (1.6-2.3) mg/dL Total Bilirubin (0.2-1.3) mg/dL AST (17-59) U/L ALT (4-49) U/L Alkaline Phosphatase (38-126) U/L Troponin I <0.012 (0.000-0.034) ng/mL Total Protein (6.3-8.2) g/dL Albumin (3.5-5.0) g/dL Amylase (30-110) U/L Lipase (23-300) U/L Urine Color Yellow Urine Appearance Cloudy (Clear) Urine pH 5.0 (5.0-8.0) Ur Specific [place] 1.023 (1.001-1.035) Urine Protein 1+ H (Negative) Urine Glucose (UA) Negative (Negative) Urine Ketones Trace H (Negative) Urine Blood Large H (Negative) Urine Nitrite Negative (Negative) Urine Bilirubin Negative (Negative) Urine Urobilinogen <2.0 (<2.0) mg/dL Ur Leukocyte Esterase Trace H (Negative) Urine RBC >182 H (0-5) /hpf Urine WBC 12 H (0-5) /hpf Ur Squamous Epith Cells 1 (0-4) /hpf Urine Mucus Few H (None) /hpf 10/13/23 10/13/23 Range/Units 20:25 21:31 WBC (3.8-10.6) k/uL RBC (4.30-5.90) m/uL Hgb (13.0-17.5) gm/dL Hct (39.0-53.0) % MCV (80.0-100.0) fL MCH (25.0-35.0) pg MCHC (31.0-37.0) g/dL RDW (11.5-15.5) % Plt Count (150-450) k/uL MPV Neutrophils % % Lymphocytes % % Monocytes % % Eosinophils % % Basophils % % Neutrophils # (1.3-7.7) k/uL Lymphocytes # (1.0-4.8) k/uL Monocytes # (0-1.0) k/uL Eosinophils # (0-0.7) k/uL Basophils # (0-0.2) k/uL PT (10.0-12.5) sec INR (<1.2) APTT (22.0-30.0) sec Sodium (137-145) mmol/L Potassium (3.5-5.1) mmol/L Chloride (98-107) mmol/L Carbon Dioxide (22-30) mmol/L Anion Gap mmol/L BUN (9-20) mg/dL Creatinine (0.66-1.25) mg/dL Est GFR (CKD-EPI)AfAm (>60 ml/min/1.73 sqM) Est GFR (CKD-EPI)NonAf (>60 ml/min/1.73 sqM) Glucose (74-99) mg/dL Lactic Ac Sepsis Rflx Y Plasma Lactic Acid Pramod (0.7-2.0) mmol/L Calcium (8.4-10.2) mg/dL Magnesium (1.6-2.3) mg/dL Total Bilirubin (0.2-1.3) mg/dL AST (17-59) U/L ALT (4-49) U/L Alkaline Phosphatase (38-126) U/L Troponin I (0.000-0.034) ng/mL Total Protein (6.3-8.2) g/dL Albumin (3.5-5.0) g/dL Amylase 672 H* (30-110) U/L Lipase (23-300) U/L Urine Color Urine Appearance (Clear) Urine pH (5.0-8.0) Ur Specific [place] (1.001-1.035) Urine Protein (Negative) Urine Glucose (UA) (Negative) Urine Ketones (Negative) Urine Blood (Negative) Urine Nitrite (Negative) Urine Bilirubin (Negative) Urine Urobilinogen (<2.0) mg/dL Ur Leukocyte Esterase (Negative) Urine RBC (0-5) /hpf Urine WBC (0-5) /hpf Ur Squamous Epith Cells (0-4) /hpf Urine Mucus (None) /hpf Disposition <Ann Wiseman - Last Filed: 10/13/23 19:32> - Out of Hospital Transfer - Req. Specs Out of Hospital Transfer - Requested Specifics: Other Emergency Center ([facility]) <Nanette Lee - Last Filed: 10/14/23 03:11> Clinical Impression: Pancreatitis Disposition: OTHER INSTITUTION NOT DEFINED Referrals: Nicholas Padilla MD [Primary Care Provider] - 1-2 days
[2023-10-13 20:18] LABS: Basophils % (A) 0 %; Eosinophils # (A) 0.1 k/uL (0-0.7); Eosinophils % (A) 1 %; HCT 44.5 % (39.0-53.0); HGB 14.9 gm/dL (13.0-17.5); Lymphocytes # (A) 2.7 k/uL (1.0-4.8); Lymphocytes % (A) 28 %; MCHC 33.5 g/dL (31.0-37.0); MCV 95.4 fL (80.0-100.0); Mean Platelet Volume 7.9; Monocytes # (A) 0.3 k/uL (0-1.0); Monocytes % (A) 3 %; Neutrophils # (A) 6.5 k/uL (1.3-7.7); Neutrophils % (A) 67 %; Platelet Count 291 k/uL (150-450); RBC 4.67 m/uL (4.30-5.90); RDW 13.2 % (11.5-15.5); WBC 9.7 k/uL (3.8-10.6)
[2023-10-13 20:24] LABS: ALT 52 U/L (4-49); AST 144 U/L (17-59); African American GFR (CKD) 56 (>60 ml/min/1.73 sqM); Albumin 4.6 g/dL (3.5-5.0); Alkaline Phosphatase 70 U/L (38-126); Anion Gap 13 mmol/L; Blood Urea Nitrogen 27 mg/dL (9-20); Calcium 10.6 mg/dL (8.4-10.2); Carbon Dioxide 21 mmol/L (22-30); Chloride 108 mmol/L (98-107); Glucose 164 mg/dL (74-99); Magnesium 1.7 mg/dL (1.6-2.3); Non-African American GFR(CKD) 48 (>60 ml/min/1.73 sqM); Potassium 4.5 mmol/L (3.5-5.1); Sodium 142 mmol/L (137-145); Total Protein 7.4 g/dL (6.3-8.2)
[2023-10-13 20:27] LABS: INR 0.9 (<1.2); Prothrombin Time 10.2 sec (10.0-12.5)
[2023-10-13 21:03] LABS: Appearance,Urine Cloudy (Clear); Bilirubin,Urine Negative (Negative); Blood,Urine Large (Negative); Color,Urine Yellow; Glucose,Urine (UA) Negative (Negative); Ketones,Urine Trace (Negative); Leukocyte Esterase,Urine Trace (Negative); Mucus,Urine Few /hpf; Nitrite,Urine Negative (Negative); Protein,Urine 1+ (Negative); RBC,Urine >182 /hpf (0-5); Specific Gravity,Urine 1.023 (1.001-1.035); Squamous Epithelial Cell,Urine 1 /hpf (0-4); Urobilinogen,Urine <2.0 mg/dL (<2.0); WBC,Urine 12 /hpf (0-5)
[2023-10-13] MEDS: SODIUM CHLORIDE 0.9% 2,000 ML IV STA (21:18)
[2023-10-13] MEDS: ONDANSETRON 4 MG/2 ML VIAL IVP STA (21:19)
[2023-10-13] MEDS: PANTOPRAZOLE 40 MG/10 ML VIAL IVP STA (21:22)
[2023-10-13] MEDS: HYDROmorphone 0.5 MG/0.5 ML SYRINGE IVP STA (21:26)
[2023-10-13 21:27] LABS: Lipase >20000 U/L (23-300)
--- NOTE | 2023-10-13 22:16 | CT ---
EXAMINATION TYPE: CT abdomen pelvis wo con DATE OF EXAM: 10/13/2023 COMPARISON: 08/24/2019 HISTORY: 78-year-old male known localized acute abdominal pain CT DLP: 836.7 mGycm. Automated exposure control for dose reduction was used. TECHNIQUE: Contiguous axial scanning of the abdomen and pelvis without IV contrast. Coronal and sagit yamileth reconstructions performed. FINDINGS: Heart upper limits of normal in size. Coronary artery calcifications noted. Strandy scarring and atel ectasis in lower lungs. Some interstitial change and groundglass likely reflecting underlying fibrosi s. Interstitial pneumonitis is identified and is also possible. Calcified granuloma posterior left anabella ng base. No pleural effusion. Moderate sized hiatal hernia involving a third of the stomach in the lower chest. Noncontrast appearance of the liver, adrenal glands, kidneys, and spleen show no gross abnormal body. There is moderate perinephric fat stranding and edema. Possible punctate 5 mm density within the dist al bile duct on axial image 59. However, the gallbladder is surgically absent. No well-defined fluid collection in or around the pancreas. Moderate atherosclerotic calcifications infrarenal abdominal aorta without aneurysm. Retroaortic left renal vein. Small 2.4 cm periumbilical hernia. No dilated small bowel, free fluid, or free air. No mesenteric or retroperitoneal lymphadenopathy. Normal appendix. Some liquid stool in the right side of the colon. Otherwise, no significant stool bu rden. Sigmoid diverticulosis. No pericolonic inflammatory change. Mild circumferential bladder wall thickening. Numerous large bladder stones are identified, increased compared to 2019, largest measuring 3.7 cm. There is prostatomegaly 5.9 cm craniocaudal and 4.9 cm w brooke. No abnormal fluid collection in the pelvis or pelvic lymphadenopathy. Bones: Moderate degenerative change of the hips. Degenerative bony ankylosis SI joints. Advanced degenerative disc disease and hypertrophic facet arthropathy lower lumbar spine. Additional lower thoracic spine. IMPRESSION: 1. Exam positive for acute interstitial pancreatitis with moderate inflammation. No discrete fluid c ollection is identified. 2. Possible punctate 5 mm stone in the distal bile duct. However, the gallbladder surgically absent. 3. Moderate size hiatal hernia involving the third of the stomach in the lower chest. 4. Sigmoid diverticulosis without acute diverticulitis. 5. Prostatomegaly evident to 5.9 cm craniocaudal. There is mild circumferential bladder wall thicken ing, likely secondary bladder wall hypertrophy. Multiple spiculated bladder stones have enlarged comp ared to 2020 and measure up to 3.7 cm. Consider urology referral.
--- NOTE | 2023-10-13 23:23 | US ---
EXAMINATION TYPE: US abdomen limited DATE OF EXAM: 10/13/2023 COMPARISON: CT today CLINICAL INDICATION: Male, 78 years old with history of Pancreatitis, possible bile duct stone on CT; CT today. Abdominal pain, vomiting TECHNIQUE: Multiple sonographic images of the right upper quadrant are obtained. 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 Inter costal views used Pancreas: Obscured by bowel gas Liver: Difficult to fully visualize, intercostal views used. Upper limits of normal in size. Gallbladder: Surgically absent Evidence for sonographic Bell's sign: No CBD: Visualized portion appears wnl, intercostal view used. Could not visualize possible stone on to days exam Right Kidney: wnl as best seen IMPRESSION: Suboptimal study. Possible stone versus more likely surgical clip from cholecystectomy on CT is less well seen on ultrasound.
[2023-10-14 01:04] VITALS: BP 149/76; PULSE 122; RESP 20; TEMP 97
== END 2023-10-14 01:08 | disposition other institution (70) ==
LOC: EC 19:04
DX: K85.90 Acute pancreatitis without necrosis or infection, unspecified (principal)
CPT/HCPCS: 36415; 74176; 76705; 80053; 81001; 82150; 83605; 83690; 83735; 84484; 85025; 85610; 85730; 93005; 96361; 96374; 96375; 99285

== ENCOUNTER 2023-10-17 23:10 | Inpatient (IN) | payer MEDICARE, BC ==
[2023-10-17] MEDS: SODIUM CHLORIDE 0.9% 500 ML 500 ML IV STA (23:29)
[2023-10-17] MEDS: ACETAMINOPHEN TAB 500 MG TAB PO STA (23:34)
[2023-10-17 23:40] LABS: VBG PH 7.53 (7.31-7.41)
--- NOTE | 2023-10-17 23:41 | XR ---
EXAMINATION TYPE: XR chest 1V portable DATE OF EXAM: 10/17/2023 COMPARISON: Prior chest x-ray March 27, 2019 HISTORY: Dyspnea. TECHNIQUE: Single frontal view of the chest is obtained. FINDINGS: There is no focal air space opacity, pleural effusion, or pneumothorax seen. The cardiac silhouette size is upper limits of normal. The osseous structures are intact. IMPRESSION: No acute pulmonary process.
[2023-10-17 23:51] LABS: ALT 71 U/L (4-49); AST 58 U/L (17-59); African American GFR (CKD) 68 (>60 ml/min/1.73 sqM); Albumin 3.1 g/dL (3.5-5.0); Alkaline Phosphatase 126 U/L (38-126); Amylase 58 U/L (30-110); Anion Gap 11 mmol/L; Blood Urea Nitrogen 27 mg/dL (9-20); Calcium 8.7 mg/dL (8.4-10.2); Carbon Dioxide 21 mmol/L (22-30); Chloride 107 mmol/L (98-107); Glucose 154 mg/dL (74-99); Lipase 812 U/L (23-300); Magnesium 1.7 mg/dL (1.6-2.3); Non-African American GFR(CKD) 59 (>60 ml/min/1.73 sqM); Potassium 3.9 mmol/L (3.5-5.1); Sodium 139 mmol/L (137-145); Total Bilirubin 1.1 mg/dL (0.2-1.3); Total Protein 5.7 g/dL (6.3-8.2)
[2023-10-18] LABS: Basophils % (A) 0 %; Eosinophils # (A) 0.1 k/uL (0-0.7); Eosinophils % (A) 1 %; HCT 37.8 % (39.0-53.0); HGB 12.4 gm/dL (13.0-17.5); Lymphocytes % (A) 10 %; MCH 31.3 pg (25.0-35.0); MCHC 32.8 g/dL (31.0-37.0); MCV 95.4 fL (80.0-100.0); Mean Platelet Volume 9.2; Monocytes # (A) 0.1 k/uL (0-1.0); Monocytes % (A) 2 %; Neutrophils # (A) 8.3 k/uL (1.3-7.7); Neutrophils % (A) 87 %; Platelet Count 289 k/uL (150-450); RBC 3.97 m/uL (4.30-5.90); RDW 13.1 % (11.5-15.5); WBC 9.5 k/uL (3.8-10.6)
[2023-10-18 00:16] LABS: Amorphous Sediment,Urine Rare /hpf; Appearance,Urine Cloudy (Clear); Bilirubin,Urine Negative (Negative); Blood,Urine Small (Negative); Color,Urine Yellow; Glucose,Urine (UA) 1+ (Negative); Granular Casts,Urine 1 /lpf (0); Hyaline Casts,Urine 5 /lpf (0-2); Ketones,Urine Trace (Negative); Leukocyte Esterase,Urine Negative (Negative); Mucus,Urine Rare /hpf; Nitrite,Urine Negative (Negative); PH, Urine 5.5 (5.0-8.0); Protein,Urine 1+ (Negative); RBC,Urine 1 /hpf (0-5); Specific Gravity,Urine 1.024 (1.001-1.035); Squamous Epithelial Cell,Urine 3 /hpf (0-4); WBC,Urine 2 /hpf (0-5)
[2023-10-18 00:18] LABS: INR 0.9 (<1.2); Prothrombin Time 10.5 sec (10.0-12.5)
[2023-10-18 00:26] LABS: Partial Thromboplastin Time 21.8 sec (22.0-30.0)
[2023-10-18] MEDS: ASPIRIN 81 MG PO STA (00:29)
--- NOTE | 2023-10-18 00:31 | ED ---
General Adult HPI - General Chief complaint: Shortness of Breath Stated complaint: SOB, Weakness Time Seen by Provider: 10/17/23 23:10 Source: patient, EMS, RN notes reviewed, old records reviewed Mode of arrival: EMS Limitations: no limitations - History of Present Illness Initial comments: Patient is a 78-year-old male with past medical history remarkable for CAD, diabetes, hypertension, hyperlipidemia, recent diagnosis of pancreatitis who was just discharged from [facility] today. EMS called the patient has a shortness of breath difficulty in breather. They had the patient on CPAP. Had a questional pulse ox at home possibly in the 60s to 70%. Family and patient states that they called EMS due to weakness since discharge and being unable to ambulate. Normally can walk on his own but has been too weak to do so. Did not feel like he was ready to go home. Patient states that due to recent hospitalization, he feels extremely weak. Does not believe he should have gone home today. Was at home and was having a hard time moving around and felt weak doing any form of activity.When patient arrived, patient was sat urating 98 and 95% on room air. Was placed on 2 L nasal cannula for comfort. Vital signs otherwise remarkable for low-grade fever. Presents for further evaluation at this time. Patient states he was feeling short of breath at home but that is since passed. States he has been having body pains however currently denies any current pain. Denies chest pain. Denies abdominal pain, nausea, vomiting currently. Has no other acute complaints at this time. Presents for further evaluation.Patient felt extremely weak that he lowered himself to the follow-up floor as he was unable to walk. Did not hit his head or lose consciousness. - Related Data Home Medications Medication Instructions Recorded Confirmed ALPRAZolam [Xanax] 0.5 mg PO BID 10/26/13 08/24/19 Aspirin 81 mg PO DAILY 10/26/13 08/24/19 Metoprolol Tartrate [Lopressor] 25 mg PO BID 10/26/13 08/24/19 Tamsulosin HCl [Flomax] 0.4 mg PO DAILY 10/26/13 08/24/19 metFORMIN HCL [Glucophage] 500 mg PO BID 10/26/13 08/24/19 Atorvastatin [Lipitor] 20 mg PO Q48H 08/24/19 08/24/19 Atorvastatin [Lipitor] 40 mg PO Q48H 08/24/19 08/24/19 Enalapril [Vasotec] 10 mg PO DAILY 08/24/19 08/24/19 Multivitamins, Thera [Multivitamin 1 tab PO DAILY 08/24/19 08/24/19 (formulary)] Cypress-3 Acid Ethyl Esters [Lovaza] 2 gm PO BID 08/24/19 08/24/19 Allergies Allergy/AdvReac Type Severity Reaction Status Date / Time No Known Allergies Allergy Verified 10/13/23 19:45 Review of Systems ROS Statement: Those systems with pertinent positive or pertinent negative responses have been documented in the HPI. Review of Systems: CONST: Denies fever EYES: Denies blurry vision ENT: Denies nasal congestion C/V: Denies Chest pain RESP: Denies shortness of breath GI: Denies abdominal pain : Denies dysuria SKIN: Denies rash. MSK: Denies joint pain. NEURO: Denies headache ROS Other: All systems not noted in ROS Statement are negative. Past Medical History Past Medical History: Coronary Artery Disease (CAD), Diabetes Mellitus, Hyperlipidemia, Hypertension, Myocardial Infarction (SC), Prostate Disorder Additional Past Medical History / Comment(s): ulcers History of Any Multi-Drug Resistant Organisms: None Reported Past Surgical History: Back Surgery, Cholecystectomy, Heart Catheterization With Stent Additional Past Surgical History / Comment(s): fistula Past Psychological History: No Psychological Hx Reported Smoking Status: Never smoker Past Alcohol Use History: None Reported Past Drug Use History: None Reported General Exam - General Exam Comments Initial Comments: General: Appears anxious. HEAD: Normal with no signs of head trauma. EYES: PERRLA, EOMI, conjunctiva normal, no discharge. ENT: Hearing grossly intact, normal oropharynx. RESPIRATORY: Clear breath sounds bilaterally. No wheezes, rales, or rhonchi. Minimally upon presentation. Pulse ox is 94 to 96% on 2 L nasal cannula. C/V: Regular rate and rhythm. S1 and S2 auscultated, mild lower extremity edema, peripheral pulses 2+ and intact throughout ABD: Abd is soft, nontender, nondistended EXT: Normal range of motion, no obvious deformity SKIN: No rashes or lesions observed on exposed skin. NEURO: Alert and oriented x 4. Cranial nerves II-XII intact. No focal sensory or strength deficits. Limitations: no limitations Course Vital Signs 10/17/23 10/17/23 10/17/23 23:11 23:57 23:58 Temperature 99.7 F H 99.9 F H Pulse Rate 137 H 101 H Respiratory 22 18 Rate Blood Pressure 136/87 138/75 O2 Sat by Pulse 94 L 93 L Oximetry 10/18/23 10/18/23 10/18/23 01:32 01:47 02:42 Temperature 99.4 F Pulse Rate 92 77 Respiratory 18 18 Rate Blood Pressure 132/72 124/68 O2 Sat by Pulse 94 L 93 L Oximetry Medical Decision Making - Medical Decision Making Was pt. sent in by a medical professional or institution (, PA, GAS USAGE METER CLERK, urgent care, hospital, or senior living...) When possible be specific @ -No Did you speak to anyone other than the patient for history (EMS, parent, family, police, friend...)? What history was obtained from this source @ -No Did you review nursing and triage notes (agree or disagree)? Why? @ -I reviewed and agree with nursing and triage notes Were old charts reviewed (outside hosp., previous admission, EMS record, old EKG, old radiological studies, urgent care reports/EKG's, senior living records)? Report findings @ -Reviewed chart from recent visit for acute pancreatitis and transferred to [facility]. Lipase at that time was greater than 20,000. Differential Diagnosis (chest pain, altered mental status, abdominal pain women, abdominal pain men, vaginal bleeding, weakness, fever, dyspnea, syncope, headache, dizziness, GI bleed, back pain, seizure, CVA, palpatations, mental health, musculoskeletal)? @ -Differential Weakness: Hypoglycemia, shock, sepsis, hyponatremia, anemia, infection, SC, ETOH, adverse medicine reaction, overdose, stroke, this is not meant to be an all-inclusive list. EKG interpreted by me (3pts min.). @ -As above X-rays interpreted by me (1pt min.). @ -Chest x-ray reveals no obvious acute cardiopulmonary process. CT interpreted by me (1pt min.). @ -CT PE negative for pulmonary embolism. Patient does have bilateral pleural effusions. CT abdomen pelvis reveals no obvious acute intra-abdominal process. Patient had some residual inflammation in the pancreas however improved lipase and amylase. Patient also has a biliary drainage catheter with which appears to be functioning properly. No evidence of new biliary obstruction at this time. CT brain obtained to evaluate for any injury after recent head injury prior to initiating heparin. Negative for any obvious acute intracranial process or injury. No intracranial hemorrhage. U/S interpreted by me (1pt. min.). @ -None done What testing was considered but not performed or refused? (CT, X-rays, U/S, labs)? Why? @ -None What meds were considered but not given or refused? Why? @ -None Did you discuss the management of the patient with other professionals (professionals i.e. , PA, GAS USAGE METER CLERK, lab, RT, psych nurse, oncology social worker, cardiac cath technician, teacher, freedom of information officer, casey saw operator)? Give summary @ -Attempted Dr. Padilla via [employer] he stated that [facility] is covering him. I spoke with Dr. Fontanez of [facility] who accepted the admission. Was smoking cessation discussed for >3mins.? @ -No Was critical care preformed (if so, how long)? @ -yes, 31 minutes Were there social determinants of health that impacted care today? How? (Gerri elessness, low income, unemployed, alcoholism, drug addiction, transportation, low edu. Level, literacy, decrease access to med. care, usp, rehab)? @ -No Was there de-escalation of care discussed even if they declined (Discuss DNR or withdrawal of care, Hospice)? DNR status @ -No What co-morbidities impacted this encounter? (DM, HTN, Smoking, COPD, CAD, Cancer, CVA, ARF, Chemo, Hep., AIDS, mental health diagnosis, sleep apnea, morbid obesity)? @ -CAD, recent hospital admission for acute pancreatitis. Patient had some form of biliary stent placed at that time. Was patient admitted / discharged? Hospital course, mention meds given and route, prescriptions, significant lab abnormalities, going to OR and other pertinent info. @ -Based on the patient's presentation and physical exam, presents emergency department for urgent call of weakness. Was hypoxic per EMS but is not significantly hypoxic for us at the emergency department. Did seem to be having an anxiety attack when he arrived as he was hyperventilating with normal pulse ox. Patient was placed on oxygen for comfort and multiple levels of reassurance as well as administering a dose of Tylenol and IV fluids improve the patient's symptoms. Vital signs when patient is at rest improved and are within acceptable limits. EKGs revealed no evidence of acute ischemia. Chest x-ray shows no obvious acute cardiopulmonary process. Labs are remarkable for a D-dimer 6.26, lactic acid of 3.9 but I suspect this is likely from hyperventilation and we will repeat. Troponin is elevated to 0.120. No leukocytosis. Remainder the labs are relatively unremarkable except for an elevated lipase of 812 which is improved from a few days ago when it was greater than 20,000. I reevaluate the patient. Patient is feeling improved and resting comfortably at this time. Patient's is at bedside at this time and does confirm that patient felt weak at home and lowered himself to the ground and she was not sure what to do which is why she called EMS. Just went home today. I discussed results with him. He was given 324 mg of aspirin and we will CT imaging of the chest abdomen pelvis to evaluate for PE and to check on his prior finding of pancreatitis.. Patient was in agreement this plan. CT PE negative for pulmonary embolism. Patient does have bilateral pleural effusions. CT abdomen pelvis reveals no obvious acute intra-abdominal process. Patient had some residual inflammation in the pancreas however improved lipase and amylase. Patient also has a biliary drainage catheter with which appears to be functioning properly. No evidence of new biliary obstruction at this time. Lactic acid is elevated upon arrival however I do believe this is likely secondary to hyperventilation which was occurring when he arrived. He is now breathing regularly. Vital signs are within normal limits. Repeat will be obtained at this time. Repeat lactic acid within normal limits. Reports that patient had elevation secondary to hyperventilation, tremors when he arrived. Cleared with no significant intervention. On reevaluation, patient is asymptomatic. We discussed his workup. Remains chest pain-free. Has no other acute complaints. Is off oxygen. Vitals are within acceptable limits. Patient will be admitted for a NSTEMI. Patient initiated on heparin drip. Patient already given aspirin. Claimed he had a recent significant head trauma hitting his head hard he states. Poor historian regarding it. This was done within the last few months. Per protocol, we will obtain CT imaging of brain. Prior to initiating heparin therapy. CT brain within normal limits with no evidence of intracranial hemorrhage. Patient started on heparin therapy. Attempted Dr. Padilla via [employer] he stated that [facility] is covering him. I spoke with Dr. Fontanez of [facility] who accepted the admission. Undiagnosed new problem with uncertain prognosis? @ -No Drug Therapy requiring intensive monitoring for toxicity (Heparin, Nitro, Insulin, Cardizem)? @ -Heparin Were any procedures done? @ -No Diagnosis/symptom? @ -NSTEMI, resolving pancreatitis, anxiety, pleural effusions, weakness Acute, or Chronic, or Acute on Chronic? @ -Acute Uncomplicated (without systemic symptoms) or Complicated (systemic symptoms)? @ -Complicated Side effects of treatment? @ -None Exacerbation, Progression, or Severe Exacerbation] @ -No Poses a threat to life or bodily function? @ -Yes - Lab Data Result diagrams: 10/17/23 23:19 10/17/23 23:19 Lab Results 10/17/23 10/17/23 10/17/23 Range/Units 23:19 23:19 23:19 WBC 9.5 (3.8-10.6) k/uL RBC 3.97 L (4.30-5.90) m/uL Hgb 12.4 L (13.0-17.5) gm/dL Hct 37.8 L (39.0-53.0) % MCV 95.4 (80.0-100.0) fL MCH 31.3 (25.0-35.0) pg MCHC 32.8 (31.0-37.0) g/dL RDW 13.1 (11.5-15.5) % Plt Count 289 (150-450) k/uL MPV 9.2 Neutrophils % 87 % Lymphocytes % 10 % Monocytes % 2 % Eosinophils % 1 % Basophils % 0 % Neutrophils # 8.3 H (1.3-7.7) k/uL Lymphocytes # 1.0 (1.0-4.8) k/uL Monocytes # 0.1 (0-1.0) k/uL Eosinophils # 0.1 (0-0.7) k/uL Basophils # 0.0 (0-0.2) k/uL PT 10.5 (10.0-12.5) sec INR 0.9 (<1.2) APTT 21.8 L (22.0-30.0) sec D-Dimer 6.26 H (<0.60) mg/L FEU VBG pH (7.31-7.41) VBG pCO2 (37-51) mmHg VBG HCO3 (24-28) mmol/L Sodium 139 (137-145) mmol/L Potassium 3.9 (3.5-5.1) mmol/L Chloride 107 (98-107) mmol/L Carbon Dioxide 21 L (22-30) mmol/L Anion Gap 11 mmol/L BUN 27 H (9-20) mg/dL Creatinine 1.17 (0.66-1.25) mg/dL Est GFR (CKD-EPI)AfAm 68 (>60 ml/min/1.73 sqM) Est GFR (CKD-EPI)NonAf 59 (>60 ml/min/1.73 sqM) Glucose 154 H (74-99) mg/dL Lactic Ac Sepsis Rflx Plasma Lactic Acid Pramod (0.7-2.0) mmol/L Calcium 8.7 (8.4-10.2) mg/dL Magnesium 1.7 (1.6-2.3) mg/dL Total Bilirubin 1.1 (0.2-1.3) mg/dL AST 58 (17-59) U/L ALT 71 H (4-49) U/L Alkaline Phosphatase 126 (38-126) U/L Troponin I (0.000-0.034) ng/mL NT-Pro-B Natriuret Pep pg/mL Total Protein 5.7 L (6.3-8.2) g/dL Albumin 3.1 L (3.5-5.0) g/dL Amylase 58 (30-110) U/L Lipase 812 H (23-300) U/L Urine Color Urine Appearance (Clear) Urine pH (5.0-8.0) Ur Specific Andrews (1.001-1.035) Urine Protein (Negative) Urine Glucose (UA) (Negative) Urine Ketones (Negative) Urine Blood (Negative) Urine Nitrite (Negative) Urine Bilirubin (Negative) Urine Urobilinogen (<2.0) mg/dL Ur Leukocyte Esterase (Negative) Urine RBC (0-5) /hpf Urine WBC (0-5) /hpf Ur Squamous Epith Cells (0-4) /hpf Amorphous Sediment (None) /hpf Hyaline Casts (0-2) /lpf Granular Casts (0) /lpf Urine Mucus (None) /hpf Influenza Type A (PCR) (Not Detectd) Influenza Type B (PCR) (Not Detectd) RSV (PCR) (Not Detectd) SARS-CoV-2 (PCR) (Not Detectd) 10/17/23 10/17/23 10/17/23 Range/Units 23:19 23:19 23:19 WBC (3.8-10.6) k/uL RBC (4.30-5.90) m/uL Hgb (13.0-17.5) gm/dL Hct (39.0-53.0) % MCV (80.0-100.0) fL MCH (25.0-35.0) pg MCHC (31.0-37.0) g/dL RDW (11.5-15.5) % Plt Count (150-450) k/uL MPV Neutrophils % % Lymphocytes % % Monocytes % % Eosinophils % % Basophils % % Neutrophils # (1.3-7.7) k/uL Lymphocytes # (1.0-4.8) k/uL Monocytes # (0-1.0) k/uL Eosinophils # (0-0.7) k/uL Basophils # (0-0.2) k/uL PT (10.0-12.5) sec INR (<1.2) APTT (22.0-30.0) sec D-Dimer (<0.60) mg/L FEU VBG pH (7.31-7.41) VBG pCO2 (37-51) mmHg VBG HCO3 (24-28) mmol/L Sodium (137-145) mmol/L Potassium (3.5-5.1) mmol/L Chloride (98-107) mmol/L Carbon Dioxide (22-30) mmol/L Anion Gap mmol/L BUN (9-20) mg/dL Creatinine (0.66-1.25) mg/dL Est GFR (CKD-EPI)AfAm (>60 ml/min/1.73 sqM) Est GFR (CKD-EPI)NonAf (>60 ml/min/1.73 sqM) Glucose (74-99) mg/dL Lactic Ac Sepsis Rflx Plasma Lactic Acid Pramod 3.9 H* (0.7-2.0) mmol/L Calcium (8.4-10.2) mg/dL Magnesium (1.6-2.3) mg/dL Total Bilirubin (0.2-1.3) mg/dL AST (17-59) U/L ALT (4-49) U/L Alkaline Phosphatase (38-126) U/L Troponin I 0.120 H* (0.000-0.034) ng/mL NT-Pro-B Natriuret Pep pg/mL Total Protein (6.3-8.2) g/dL Albumin (3.5-5.0) g/dL Amylase (30-110) U/L Lipase (23-300) U/L Urine Color Urine Appearance (Clear) Urine pH (5.0-8.0) Ur Specific Andrews (1.001-1.035) Urine Protein (Negative) Urine Glucose (UA) (Negative) Urine Ketones (Negative) Urine Blood (Negative) Urine Nitrite (Negative) Urine Bilirubin (Negative) Urine Urobilinogen (<2.0) mg/dL Ur Leukocyte Esterase (Negative) Urine RBC (0-5) /hpf Urine WBC (0-5) /hpf Ur Squamous Epith Cells (0-4) /hpf Amorphous Sediment (None) /hpf Hyaline Casts (0-2) /lpf Granular Casts (0) /lpf Urine Mucus (None) /hpf Influenza Type A (PCR) Not Detected (Not Detectd) Influenza Type B (PCR) Not Detected (Not Detectd) RSV (PCR) Not Detected (Not Detectd) SARS-CoV-2 (PCR) Not Detected (Not Detectd) 10/17/23 10/17/23 10/17/23 Range/Units 23:19 23:19 23:22 WBC (3.8-10.6) k/uL RBC (4.30-5.90) m/uL Hgb (13.0-17.5) gm/dL Hct (39.0-53.0) % MCV (80.0-100.0) fL MCH (25.0-35.0) pg MCHC (31.0-37.0) g/dL RDW (11.5-15.5) % Plt Count (150-450) k/uL MPV Neutrophils % % Lymphocytes % % Monocytes % % Eosinophils % % Basophils % % Neutrophils # (1.3-7.7) k/uL Lymphocytes # (1.0-4.8) k/uL Monocytes # (0-1.0) k/uL Eosinophils # (0-0.7) k/uL Basophils # (0-0.2) k/uL PT (10.0-12.5) sec INR (<1.2) APTT (22.0-30.0) sec D-Dimer (<0.60) mg/L FEU VBG pH 7.53 H (7.31-7.41) VBG pCO2 25 L (37-51) mmHg VBG HCO3 21 L (24-28) mmol/L Sodium (137-145) mmol/L Potassium (3.5-5.1) mmol/L Chloride (98-107) mmol/L Carbon Dioxide (22-30) mmol/L Anion Gap mmol/L BUN (9-20) mg/dL Creatinine (0.66-1.25) mg/dL Est GFR (CKD-EPI)AfAm (>60 ml/min/1.73 sqM) Est GFR (CKD-EPI)NonAf (>60 ml/min/1.73 sqM) Glucose (74-99) mg/dL Lactic Ac Sepsis Rflx Plasma Lactic Acid Pramod (0.7-2.0) mmol/L Calcium (8.4-10.2) mg/dL Magnesium (1.6-2.3) mg/dL Total Bilirubin (0.2-1.3) mg/dL AST (17-59) U/L ALT (4-49) U/L Alkaline Phosphatase (38-126) U/L Troponin I (0.000-0.034) ng/mL NT-Pro-B Natriuret Pep 2690 pg/mL Total Protein (6.3-8.2) g/dL Albumin (3.5-5.0) g/dL Amylase (30-110) U/L Lipase (23-300) U/L Urine Color Yellow Urine Appearance Cloudy (Clear) Urine pH 5.5 (5.0-8.0) Ur Specific Andrews 1.024 (1.001-1.035) Urine Protein 1+ H (Negative) Urine Glucose (UA) 1+ H (Negative) Urine Ketones Trace H (Negative) Urine Blood Small H (Negative) Urine Nitrite Negative (Negative) Urine Bilirubin Negative (Negative) Urine Urobilinogen 2.0 (<2.0) mg/dL Ur Leukocyte Esterase Negative (Negative) Urine RBC 1 (0-5) /hpf Urine WBC 2 (0-5) /hpf Ur Squamous Epith Cells 3 (0-4) /hpf Amorphous Sediment Rare H (None) /hpf Hyaline Casts 5 H (0-2) /lpf Granular Casts 1 (0) /lpf Urine Mucus Rare H (None) /hpf Influenza Type A (PCR) (Not Detectd) Influenza Type B (PCR) (Not Detectd) RSV (PCR) (Not Detectd) SARS-CoV-2 (PCR) (Not Detectd) 10/17/23 10/18/23 Range/Units 23:56 02:35 WBC (3.8-10.6) k/uL RBC (4.30-5.90) m/uL Hgb (13.0-17.5) gm/dL Hct (39.0-53.0) % MCV (80.0-100.0) fL MCH (25.0-35.0) pg MCHC (31.0-37.0) g/dL RDW (11.5-15.5) % Plt Count (150-450) k/uL MPV Neutrophils % % Lymphocytes % % Monocytes % % Eosinophils % % Basophils % % Neutrophils # (1.3-7.7) k/uL Lymphocytes # (1.0-4.8) k/uL Monocytes # (0-1.0) k/uL Eosinophils # (0-0.7) k/uL Basophils # (0-0.2) k/uL PT (10.0-12.5) sec INR (<1.2) APTT (22.0-30.0) sec D-Dimer (<0.60) mg/L FEU VBG pH (7.31-7.41) VBG pCO2 (37-51) mmHg VBG HCO3 (24-28) mmol/L Sodium (137-145) mmol/L Potassium (3.5-5.1) mmol/L Chloride (98-107) mmol/L Carbon Dioxide (22-30) mmol/L Anion Gap mmol/L BUN (9-20) mg/dL Creatinine (0.66-1.25) mg/dL Est GFR (CKD-EPI)AfAm (>60 ml/min/1.73 sqM) Est GFR (CKD-EPI)NonAf (>60 ml/min/1.73 sqM) Glucose (74-99) mg/dL Lactic Ac Sepsis Rflx Y Plasma Lactic Acid Pramod 1.1 (0.7-2.0) mmol/L Calcium (8.4-10.2) mg/dL Magnesium (1.6-2.3) mg/dL Total Bilirubin (0.2-1.3) mg/dL AST (17-59) U/L ALT (4-49) U/L Alkaline Phosphatase (38-126) U/L Troponin I (0.000-0.034) ng/mL NT-Pro-B Natriuret Pep pg/mL Total Protein (6.3-8.2) g/dL Albumin (3.5-5.0) g/dL Amylase (30-110) U/L Lipase (23-300) U/L Urine Color Urine Appearance (Clear) Urine pH (5.0-8.0) Ur Specific Andrews (1.001-1.035) Urine Protein (Negative) Urine Glucose (UA) (Negative) Urine Ketones (Negative) Urine Blood (Negative) Urine Nitrite (Negative) Urine Bilirubin (Negative) Urine Urobilinogen (<2.0) mg/dL Ur Leukocyte Esterase (Negative) Urine RBC (0-5) /hpf Urine WBC (0-5) /hpf Ur Squamous Epith Cells (0-4) /hpf Amorphous Sediment (None) /hpf Hyaline Casts (0-2) /lpf Granular Casts (0) /lpf Urine Mucus (None) /hpf Influenza Type A (PCR) (Not Detectd) Influenza Type B (PCR) (Not Detectd) RSV (PCR) (Not Detectd) SARS-CoV-2 (PCR) (Not Detectd) - EKG Data -: EKG Interpreted by Me EKG Comments: 12-lead Electrocardiogram Interpretation Note EKG was reviewed and interpreted by myself. 12-lead ECG performed at 2310 is interpreted by me as revealing sinus tachycardia at a rate of 136 beats per minute. Shipman is normal. AL interval is 165 ms, QRS durations 89 ms, QTc is 446 ms.. There were no ST or T wave abnormalities to suggest myocardial ischemia or injury. R wave progression across the precordium was satisfactory. By my interpretation this EKG is non-diagnostic for acute ischemia. 12-lead Electrocardiogram Interpretation Note EKG was reviewed and interpreted by myself. 12-lead ECG performed at 2347 is interpreted by me as revealing normal sinus rhythm at a rate of 98 beats per minute. Shipman is normal. AL interval is 196 ms, QRS duration is 89 ms, QTc is 402 ms.. There were no ST or T wave abnormalities to suggest myocardial ische keeley or injury. R wave progression across the precordium was satisfactory. By my interpretation this EKG is non-diagnostic for acute ischemia. No dynamic changes. Critical Care Time Critical Care Time: Yes Total Critical Care Time: 31 Disposition Clinical Impression: NSTEMI (non-ST elevated myocardial infarction), Anxiety, Pleural effusion, Weakness Disposition: ADMITTED IP TO THIS HOSP Condition: Serious Time of Disposition: 02:00
--- NOTE | 2023-10-18 01:46 | CT ---
EXAMINATION TYPE: CT chest angio for PE DATE OF EXAM: 10/18/2023 COMPARISON: NONE HISTORY: elevated d-dimer CT DLP: 622 mGycm. Automated Exposure Control for Dose Reduction was Utilized. CONTRAST: CTA scan of the thorax is performed with IV Contrast, patient injected with 80 mL of Isovue 370, pulm onary embolism protocol. MIP Images are created on CT scanner and reviewed. FINDINGS: LUNGS: There are small to tiny right greater than left bilateral pleural effusions with associated co mpressive atelectasis. No pneumothorax seen bilaterally. MEDIASTINUM: There is satisfactory enhancement of the pulmonary artery and its branches, there is no CT evidence for pulmonary embolism. Some enhancement of the aorta without aneurysm or dissection. Cor onary artery calcification and/or stents are present. No cardiomegaly or pericardial effusion. Somewh at small thyroid gland is noted. OTHER: Please refer to same day CT abdomen and pelvis report for complete details in the upper abdome n. IMPRESSION: 1. No CT evidence for acute pulmonary embolism. 2. Small to tiny right greater than left pleural effusions with associated compressive atelectasis in both lower lungs.
--- NOTE | 2023-10-18 01:56 | CT ---
EXAMINATION TYPE: CT abdomen pelvis w con DATE OF EXAM: 10/18/2023 COMPARISON: Prior CT 5 days earlier HISTORY: ABD PAIN CT DLP: 1670.6 mGycm, Automated Exposure Control for Dose Reduction was Utilized. CONTRAST: CT scan of the abdomen and pelvis is performed with oral and with IV Contrast, patient injected with 80 mL of Isovue 370. FINDINGS: LUNG BASES: Please refer to same day CT chest report for complete details on the lung bases. LIVER/GB: Gallbladder is surgically absent similar to prior. There is no internal biliary drainage ca theter. No new biliary dilatation is seen. PANCREAS: There is now moderate ill-defined fluid and fat stranding surrounding the head and body of the pancreas extending anteriorly. No well-formed fluid collection seen. No areas of nonenhancement. SPLEEN: No significant abnormality is seen. ADRENALS: No significant abnormality is seen. KIDNEYS: Symmetric excretion without hydronephrosis. Multiple stones within the bladder redemonstrate d BOWEL: Small to moderate-sized hiatal hernia on current study. PROSTATE/SEMINAL VESICLES: Enlarged prostate consistent with BPH redemonstrated. LYMPH NODES: No greater than 1cm abdominal or pelvic lymph nodes are appreciated. OSSEOUS STRUCTURES: Multilevel disc space narrowing and vacuum disc phenomenon in the lower lumbar sp ine redemonstrated. OTHER: Small fat-containing umbilical hernia sagittal image 78 redemonstrated. Moderate calcified frank que of the aorta extends into branch vessels. Stable 1.5 cm calcified left peritoneal nodule axial im age 60. IMPRESSION: There is new internal biliary drainage catheter. No new biliary dilatation. There is more prominent inflammatory change surrounding the head and body of the pancreas raising concern for wors ening acute pancreatitis. Correlate clinically.
[2023-10-18] MEDS ORDERED: HEPARIN SODIUM 1,000 UN/ML (10ML VL) IV PRN (01:58)
--- NOTE | 2023-10-18 02:31 | CT ---
EXAMINATION TYPE: CT brain wo con DATE OF EXAM: 10/18/2023 HISTORY: clearance for initiating heparin. recent head trauma CT DLP: 1227.4 mGycm. Automated Exposure Control for Dose Reduction was Utilized. TECHNIQUE: CT scan of the head is performed without contrast. COMPARISON: Prior CT March 27, 2019. FINDINGS: There is no acute intracranial hemorrhage or midline shift identified. There is mild diff use ventricular and sulcal prominence redemonstrated. Romeo-white matter differentiation fairly well p reserved. The calvarium is intact. The paranasal sinuses are clear. Globes are intact bilaterally. IMPRESSION: No acute intracranial hemorrhage or midline shift. No significant change from prior .
[2023-10-18] MEDS ORDERED: NALOXONE 0.4 MG/ML 1 ML VIAL IV PRN (02:32)
[2023-10-18] MEDS: FUROSEMIDE 10 MG/ML 4 ML VIAL IV STA (02:34)
[2023-10-18] MEDS: HEPARIN SOD,PORK IN 0.45% NACL 25,000 UNIT in 0.45% NACL 1 250ML.BAG IV SCH (02:41)
[2023-10-18] MEDS: HEPARIN SODIUM 1,000 UN/ML (10ML VL) IV ONE (02:41)
[2023-10-18] MEDS: ASPIRIN 81 MG PO SCH (08:44)
[2023-10-18] MEDS: METOPROLOL TARTRATE 25 MG TAB PO SCH (08:44)
[2023-10-18] MEDS: HEPARIN SODIUM,PORCINE 5,000 UNIT/ML 1 ML VIAL SQ SCH (08:45)
--- NOTE | 2023-10-18 09:00 | P.HPIM ---
History of Present Illness H&P Date: 10/18/23 This is an 78-year-old male with a past medical history of CAD, diabetes, hypertension, hyperlipidemia, and recent diagnosis of pancreatitis. Patient was apparently recently discharged from [facility] and had some weakness at home and difficulty breathing, so he presented to the emergency department for evaluation. Patient reports he did not feel ready to go home after recent hospitalization. Patient may have had a questionable low pulse ox reading at home. Patient is seen this morning laying on ER stretcher resting comfortably. Vitals are stable. Cardiology has been consulted. Review of Systems Constitutional: Reports weakness, Denies chills, Denies fever Cardiovascular: Reports dyspnea on exertion, Denies chest pain Respiratory: Reports dyspnea, Denies cough Gastrointestinal: Denies abdominal pain, Denies nausea, Denies vomiting Musculoskeletal: Denies arm numbness/tingling, Denies leg numbness/tingling Neurological: Reports weakness, Denies headaches Past Medical History Past Medical History: Coronary Artery Disease (CAD), Diabetes Mellitus, Hyperlipidemia, Hypertension, Myocardial Infarction ([place]), Prostate Disorder Additional Past Medical History / Comment(s): ulcers History of Any Multi-Drug Resistant Organisms: None Reported Past Surgical History: Back Surgery, Cholecystectomy, Heart Catheterization With Stent Additional Past Surgical History / Comment(s): fistula Past Psychological History: No Psychological Hx Reported Smoking Status: Never smoker Past Alcohol Use History: None Reported Past Drug Use History: None Reported Medications and Allergies Home Medications Medication Instructions Recorded Confirmed Type ALPRAZolam [Xanax] 0.5 mg PO BID 10/26/13 08/24/19 History Aspirin 81 mg PO DAILY 10/26/13 08/24/19 History Metoprolol Tartrate [Lopressor] 25 mg PO BID 10/26/13 08/24/19 History Tamsulosin HCl [Flomax] 0.4 mg PO DAILY 10/26/13 08/24/19 History metFORMIN HCL [Glucophage] 500 mg PO BID 10/26/13 08/24/19 History Atorvastatin [Lipitor] 20 mg PO Q48H 08/24/19 08/24/19 History Atorvastatin [Lipitor] 40 mg PO Q48H 08/24/19 08/24/19 History Enalapril [Vasotec] 10 mg PO DAILY 08/24/19 08/24/19 History Multivitamins, Thera [Multivitamin 1 tab PO DAILY 08/24/19 08/24/19 History (formulary)] Indiahoma-3 Acid Ethyl Esters [Lovaza] 2 gm PO BID 08/24/19 08/24/19 History Allergies Allergy/AdvReac Type Severity Reaction Status Date / Time No Known Allergies Allergy Verified 10/13/23 19:45 Physical Exam Vitals: Vital Signs Temp Pulse Resp BP Pulse Ox 10/18/23 08:43 73 18 164/89 95 10/18/23 07:41 98 F 71 20 145/77 94 L 10/18/23 06:00 71 18 156/82 94 L 10/18/23 04:00 74 18 150/87 97 10/18/23 02:42 77 18 124/68 93 L 10/18/23 01:47 99.4 F 10/18/23 01:32 92 18 132/72 94 L 10/17/23 23:58 99.9 F H 10/17/23 23:57 101 H 18 138/75 93 L 10/17/23 23:11 99.7 F H 137 H 22 136/87 94 L Intake and Output 10/17/23 10/18/23 10/18/23 22:59 06:59 14:59 Other: Weight 102.058 kg - Constitutional General appearance: cooperative, no acute distress - EENT Eyes: PERRLA - Neck Neck: no lymphadenopathy, normal ROM, no rigidity - Respiratory Respiratory: bilateral: diminished - Cardiovascular Rhythm: regular Heart sounds: normal: S1, S2 - Gastrointestinal General gastrointestinal: soft, no tenderness - Integumentary Integumentary: normal, normal turgor - Musculoskeletal Musculoskeletal: generalized weakness - Psychiatric Psychiatric: A&O x's 3 Results CBC & Chem 7: 10/17/23 23:19 10/17/23 23:19 Labs: Abnormal Lab Results - Last 24 Hours (Table) 10/17/23 10/17/23 10/17/23 Range/Units 23:19 23:19 23:19 RBC 3.97 L (4.30-5.90) m/uL Hgb 12.4 L (13.0-17.5) gm/dL Hct 37.8 L (39.0-53.0) % Neutrophils # 8.3 H (1.3-7.7) k/uL APTT 21.8 L (22.0-30.0) sec D-Dimer 6.26 H (<0.60) mg/L FEU VBG pH (7.31-7.41) VBG pCO2 (37-51) mmHg VBG HCO3 (24-28) mmol/L Carbon Dioxide 21 L (22-30) mmol/L BUN 27 H (9-20) mg/dL Glucose 154 H (74-99) mg/dL Plasma Lactic Acid Pramod (0.7-2.0) mmol/L ALT 71 H (4-49) U/L Troponin I (0.000-0.034) ng/mL Total Protein 5.7 L (6.3-8.2) g/dL Albumin 3.1 L (3.5-5.0) g/dL Lipase 812 H (23-300) U/L Urine Protein (Negative) Urine Glucose (UA) (Negative) Urine Ketones (Negative) Urine Blood (Negative) Amorphous Sediment (None) /hpf Hyaline Casts (0-2) /lpf Urine Mucus (None) /hpf 10/17/23 10/17/23 10/17/23 Range/Units 23:19 23:19 23:19 RBC (4.30-5.90) m/uL Hgb (13.0-17.5) gm/dL Hct (39.0-53.0) % Neutrophils # (1.3-7.7) k/uL APTT (22.0-30.0) sec D-Dimer (<0.60) mg/L FEU VBG pH 7.53 H (7.31-7.41) VBG pCO2 25 L (37-51) mmHg VBG HCO3 21 L (24-28) mmol/L Carbon Dioxide (22-30) mmol/L BUN (9-20) mg/dL Glucose (74-99) mg/dL Plasma Lactic Acid Pramod 3.9 H* (0.7-2.0) mmol/L ALT (4-49) U/L Troponin I 0.120 H* (0.000-0.034) ng/mL Total Protein (6.3-8.2) g/dL Albumin (3.5-5.0) g/dL Lipase (23-300) U/L Urine Protein (Negative) Urine Glucose (UA) (Negative) Urine Ketones (Negative) Urine Blood (Negative) Amorphous Sediment (None) /hpf Hyaline Casts (0-2) /lpf Urine Mucus (None) /hpf 10/17/23 10/18/23 10/18/23 Range/Units 23:22 04:11 07:46 RBC (4.30-5.90) m/uL Hgb (13.0-17.5) gm/dL Hct (39.0-53.0) % Neutrophils # (1.3-7.7) k/uL APTT 40.5 H (22.0-30.0) sec D-Dimer (<0.60) mg/L FEU VBG pH (7.31-7.41) VBG pCO2 (37-51) mmHg VBG HCO3 (24-28) mmol/L Carbon Dioxide (22-30) mmol/L BUN (9-20) mg/dL Glucose (74-99) mg/dL Plasma Lactic Acid Pramod (0.7-2.0) mmol/L ALT (4-49) U/L Troponin I 2.270 H* (0.000-0.034) ng/mL Total Protein (6.3-8.2) g/dL Albumin (3.5-5.0) g/dL Lipase (23-300) U/L Urine Protein 1+ H (Negative) Urine Glucose (UA) 1+ H (Negative) Urine Ketones Trace H (Negative) Urine Blood Small H (Negative) Amorphous Sediment Rare H (None) /hpf Hyaline Casts 5 H (0-2) /lpf Urine Mucus Rare H (None) /hpf Assessment and Plan (1) Anxiety Current Visit: Yes Status: Acute Code(s): F41.9 - ANXIETY DISORDER, UNSPECIFIED SNOMED Code(s): 37914578 (2) NSTEMI (non-ST elevated myocardial infarction) Current Visit: Yes Status: Acute Code(s): I21.4 - NON-ST ELEVATION (NSTEMI) MYOCARDIAL INFARCTION SNOMED Code(s): 96807967 (3) Pleural effusion Current Visit: Yes Status: Acute Code(s): J90 - PLEURAL EFFUSION, NOT ELSEWHERE CLASSIFIED SNOMED Code(s): 29535095 (4) Weakness Current Visit: Yes Status: Acute Code(s): R53.1 - WEAKNESS SNOMED Code(s): 12283303 (5) Pancreatitis Current Visit: No Status: Acute Code(s): K85.90 - ACUTE PANCREATITIS WITHOUT NECROSIS OR INFECTION, UNSP SNOMED Code(s): 81305805 (6) Diabetes Current Visit: Yes Status: Acute Code(s): E11.9 - TYPE 2 DIABETES MELLITUS WITHOUT COMPLICATIONS SNOMED Code(s): 36898386 Plan: Continue home medications. Will add sliding scale insulin and Accu-Cheks. Check CBC and CMP morning. Appreciate cardiology consult. Patient seen and evaluated by nurse practitioner, physician in agreement with plan
[2023-10-18 10:20] LABS: Glucose,Whole Blood 178 mg/dL (70-110)
[2023-10-18] MEDS: PATIENT'S OWN (Omega-3 Acid Ethyl Esters [Lovaza] 1 GM Capsule) PO SCH (10:24)
[2023-10-18] MEDS: lisinopriL 20 MG TAB PO SCH (10:24)
[2023-10-18] MEDS: MULTIVITAMINS, THERA 1 EACH TAB PO SCH (10:26)
[2023-10-18] MEDS: metFORMIN 500 MG TAB PO SCH ×2 (10:26→17:37)
[2023-10-18] MEDS: ALPRAZolam 0.5 MG TAB PO SCH (10:26)
[2023-10-18] MEDS: TAMSULOSIN 0.4 MG CAP.ER.24H PO SCH (10:26)
--- NOTE | 2023-10-18 11:17 | P.CRDCN ---
History of Present Illness History of present illness: HISTORY OF PRESENT ILLNESS: This is a 78-year-old male with a past medical history significant for hypertension, hyperlipidemia, diabetes, and coronary artery disease with previous stenting to the RCA in 2007. Patient follows in the office with Dr. Boo. We have been asked to see the patient in consultation for elevated troponins. Patient examined at the bedside in the ER. Patient states he was at [facility] for the past 4-5 days. He was apparently being treated for pancreatitis. He states that he had a biliary drainage tube placed at that time. He presented to the hospital with a chief complaint of generalized weakness, fatigue, and abdominal pain. Patient denies having any chest pain or pressure. Denies any shortness of breath. There was questionable hypoxia at home. DIAGNOSTICS: - EKG reveals sinus mechanism with no signs of acute ischemia. - Chest xray negative for acute process - Laboratory data: WBC 9.5. Hemoglobin 12.4. Platelet count 289. D-dimer 6.26 . Sodium 139. Potassium 3.9. BUN 27. Creatinine 1.13. Lactic acid 3.9. Repeat 1.1. Troponin 0.120. 2.270. 4.190. proBNP 2690 - Current home cardiac medications include Crestor 10 mg at night and metoprolol tartrate 25 mg twice a day - Most recent echocardiogram obtained in October 2022 revealed ejection fraction 55% with mild MR and mild TR - Cardiac catheterization history: 2007 with stenting to the proximal RCA REVIEW OF SYSTEMS: At the time of my exam: CONSTITUTIONAL: Denies fever or chills. HEENT: Denies blurred vision, vision changes, or eye pain. Denies hemoptysis CARDIOVASCULAR: Denies chest pain. Denies orthopnea. Denies PND. Denies palpitations RESPIRATORY: Denies shortness of breath. GASTROINTESTINAL: Denies abdominal pain. Denies nausea or vomiting. HEMATOLOGIC: Denies bleeding disorders. GENITOURINARY: Denies any blood in urine. SKIN: Denies pruitis. Denies rash. PHYSICAL EXAM: VITAL SIGNS: Reviewed. GENERAL: Well-developed in no acute distress. HEENT: Head is normocephalic. Pupils are equal, round. Sclerae anicteric. Mucous membranes of the mouth are moist. Neck supple. No JVD or thyromegaly LUNGS: Respirations even and unlabored. Lungs essentially clear to auscultation bilaterally. HEART: Regular rate and rhythm. S1 and S2 heard. ABDOMEN: Soft. Tenderness with palpation of lower quadrants EXTREMITIES: Normal range of motion. No clubbing or cyanosis. Peripheral pulses intact. No lower extremity edema NEUROLOGIC: Awake and alert. Oriented x 3. ASSESSMENT: Abdominal pain Recent hospitalization at [facility] for pancreatitis with placement of biliary drainage tube Worsening acute pancreatitis, per CT scan Non-STEMI Coronary artery disease with previous stenting of the RCA, 2007 Hypertension Hyperlipidemia Diabetes PLAN: Obtain 2D echo to assess cardiac structure and function Add aspirin, statin, and metoprolol Discontinue IV heparin as CT scan shows worsening pancreatitis Continue with conversative management at this time Further recommendations pending patient course Nurse practitioner note has been reviewed by physician. Signing provider agrees with the documented findings, assessment, and plan of care documented by [employer] as a scribe. Past Medical History Past Medical History: Coronary Artery Disease (CAD), Diabetes Mellitus, Hyperlipidemia, Hypertension, Myocardial Infarction ([place]), Prostate Disorder Additional Past Medical History / Comment(s): ulcers History of Any Multi-Drug Resistant Organisms: None Reported Past Surgical History: Back Surgery, Cholecystectomy, Heart Catheterization With Stent Additional Past Surgical History / Comment(s): fistula Past Psychological History: No Psychological Hx Reported Smoking Status: Never smoker Past Alcohol Use History: None Reported Past Drug Use History: None Reported Medications and Allergies Home Medications Medication Instructions Recorded Confirmed Type ALPRAZolam [Xanax] 0.5 mg PO BID 10/26/13 10/18/23 History Metoprolol Tartrate [Lopressor] 25 mg PO BID 10/26/13 10/18/23 History Tamsulosin HCl [Flomax] 0.4 mg PO DAILY 10/26/13 10/18/23 History metFORMIN HCL [Glucophage] 1,000 mg PO BID-W/MEALS 10/26/13 10/18/23 History Finasteride [Proscar] 5 mg PO DAILY 10/18/23 10/18/23 History Gabapentin [Neurontin] 300 mg PO BID 10/18/23 10/18/23 History Rosuvastatin [Crestor] 10 mg PO HS 10/18/23 10/18/23 History Allergies Allergy/AdvReac Type Severity Reaction Status Date / Time No Known Allergies Allergy Verified 10/18/23 10:14 Physical Exam Vitals: Vital Signs Temp Pulse Resp BP Pulse Ox 10/18/23 08:43 73 18 164/89 95 10/18/23 07:41 98 F 71 20 145/77 94 L 10/18/23 06:00 71 18 156/82 94 L 10/18/23 04:00 74 18 150/87 97 10/18/23 02:42 77 18 124/68 93 L 10/18/23 01:47 99.4 F 10/18/23 01:32 92 18 132/72 94 L 10/17/23 23:58 99.9 F H 10/17/23 23:57 101 H 18 138/75 93 L 10/17/23 23:11 99.7 F H 137 H 22 136/87 94 L Intake and Output 10/17/23 10/18/23 10/18/23 22:59 06:59 14:59 Other: Weight 102.058 kg Results 10/17/23 23:19 10/17/23 23:19 Cardiac Enzymes 10/17/23 10/17/23 10/18/23 Range/Units 23:19 23:19 04:11 AST 58 (17-59) U/L Troponin I 0.120 H* 2.270 H* (0.000-0.034) ng/mL 10/18/23 Range/Units 07:46 AST (17-59) U/L Troponin I 4.190 H* (0.000-0.034) ng/mL Coagulation 10/17/23 10/18/23 Range/Units 23:19 07:46 PT 10.5 (10.0-12.5) sec APTT 21.8 L 40.5 H (22.0-30.0) sec CBC 10/17/23 Range/Units 23:19 WBC 9.5 (3.8-10.6) k/uL RBC 3.97 L (4.30-5.90) m/uL Hgb 12.4 L (13.0-17.5) gm/dL Hct 37.8 L (39.0-53.0) % Plt Count 289 (150-450) k/uL Comprehensive Metabolic Panel 10/17/23 Range/Units 23:19 Sodium 139 (137-145) mmol/L Potassium 3.9 (3.5-5.1) mmol/L Chloride 107 (98-107) mmol/L Carbon Dioxide 21 L (22-30) mmol/L BUN 27 H (9-20) mg/dL Creatinine 1.17 (0.66-1.25) mg/dL Glucose 154 H (74-99) mg/dL Calcium 8.7 (8.4-10.2) mg/dL AST 58 (17-59) U/L ALT 71 H (4-49) U/L Alkaline Phosphatase 126 (38-126) U/L Total Protein 5.7 L (6.3-8.2) g/dL Albumin 3.1 L (3.5-5.0) g/dL Current Medications Generic Name Dose Route Start Last Admin Trade Name Freq PRN Reason Stop Dose Admin Alprazolam 0.5 mg 10/18/23 09:00 10/18/23 10:26 Alprazolam 0.5 Mg Tab PO 0.5 mg BID LEANDER Administration Aspirin 81 mg 10/18/23 09:00 10/18/23 08:44 Aspirin 81 Mg PO 81 mg DAILY LEANDER Administration Atorvastatin Calcium 40 mg 10/18/23 21:00 Atorvastatin 40 Mg Tab PO HS [facility] Heparin Sodium (Porcine) 5,000 unit 10/18/23 08:15 10/18/23 08:45 Heparin Sodium,Porcine 5,000 Unit/Ml 1 Ml Vial SQ 5,000 unit Q8HR [facility] Administration Insulin Aspart 0 unit 10/18/23 12:30 Insulin Aspart (Novolog) 100 Unit/Ml Vial SQ ACHS [facility] Protocol Metformin HCl 1,000 mg 10/18/23 17:30 Metformin 500 Mg Tab PO BID-W/MEALS [facility] Metoprolol Tartrate 25 mg 10/18/23 09:00 10/18/23 08:44 Metoprolol Tartrate 25 Mg Tab PO 25 mg BID LEANDER Administration Multivitamins 1 each 10/18/23 09:00 10/18/23 10:26 Multivitamins, Thera 1 Each Tab PO 1 each DAILY [facility] Administration Naloxone HCl 0.2 mg 10/18/23 02:32 Naloxone 0.4 Mg/Ml 1 Ml Vial IV Q2M PRN Opioid Reversal Tamsulosin HCl 0.4 mg 10/18/23 09:00 10/18/23 10:26 Tamsulosin 0.4 Mg Cap.Er.24h PO 0.4 mg DAILY LEANDER Administration Intake and Output 10/17/23 10/18/23 10/18/23 22:59 06:59 14:59 Other: Weight 102.058 kg 10/17/23 23:19 10/17/23 23:19
[2023-10-18 12:08] LABS: Glucose,Whole Blood 184 mg/dL (70-110)
[2023-10-18] MEDS: INSULIN ASPART (NovoLOG) 100 UNIT/ML VIAL SQ SCH (12:48)
[2023-10-18] MEDS: traMADol 50 MG TAB PO PRN (12:48)
[2023-10-18 17:25] LABS: Glucose,Whole Blood 188 mg/dL (70-110)
[2023-10-18] MEDS: ATORVASTATIN 40 MG TAB PO SCH (20:12)
[2023-10-18] MEDS ORDERED: ATORVASTATIN 80 MG TAB PO SCH (21:00)
[2023-10-18 22:10] LABS: Glucose,Whole Blood 185 mg/dL (70-110)
[2023-10-19 06:45] LABS: Basophils % (A) 0 %; Eosinophils # (A) 0.2 k/uL (0-0.7); Eosinophils % (A) 1 %; HCT 38.8 % (39.0-53.0); HGB 12.6 gm/dL (13.0-17.5); INR 1.1 (<1.2); Lymphocytes % (A) 7 %; MCHC 32.5 g/dL (31.0-37.0); MCV 98.7 fL (80.0-100.0); Mean Platelet Volume 8.3; Monocytes # (A) 0.4 k/uL (0-1.0); Monocytes % (A) 3 %; Neutrophils # (A) 12.9 k/uL (1.3-7.7); Neutrophils % (A) 88 %; Platelet Count 293 k/uL (150-450); Prothrombin Time 11.4 sec (10.0-12.5); RBC 3.93 m/uL (4.30-5.90); RDW 13.3 % (11.5-15.5); WBC 14.6 k/uL (3.8-10.6)
[2023-10-19 06:51] LABS: ALT 55 U/L (4-49); African American GFR (CKD) 26 (>60 ml/min/1.73 sqM); Amylase 50 U/L (30-110); Anion Gap 9 mmol/L; Blood Urea Nitrogen 38 mg/dL (9-20); Calcium 8.5 mg/dL (8.4-10.2); Carbon Dioxide 25 mmol/L (22-30); Chloride 104 mmol/L (98-107); Glucose 162 mg/dL (74-99); Lipase 528 U/L (23-300); Non-African American GFR(CKD) 23 (>60 ml/min/1.73 sqM); Sodium 138 mmol/L (137-145); Total Bilirubin 0.8 mg/dL (0.2-1.3); Total Protein 5.7 g/dL (6.3-8.2)
[2023-10-19 06:58] LABS: AST 74 U/L (17-59); Alkaline Phosphatase 95 U/L (38-126); Potassium 4.4 mmol/L (3.5-5.1)
[2023-10-19 07:51] LABS: Glucose,Whole Blood 163 mg/dL (70-110)
[2023-10-19] MEDS ORDERED: DEXTROSE 50% SYRINGE 50 ML IVP PRN ×2 (08:40)
--- NOTE | 2023-10-19 08:40 | P.PN ---
Subjective Progress Note Date: 10/19/23 Principal diagnosis: Elevated troponin with pancreatitis on CT scan. The patient is an 78-year-old white male who was recently discharged from [facility]. The patient complained of significant shortness of breath. Elevation of creatinine was noted this morning. Will ask nephrology to see the patient for acute renal failure. CT scan did show mild pancreatitis enzymes are decreasing from a pancreatic perspective, however there was slight bump in his liver function tests. Will ask GI to comment. He states some lower umbilical pain. But some distention. No appetite stated. Objective - Vital Signs Vital signs: Vital Signs Temp 98.1 F 10/18/23 11:04 Pulse 92 10/19/23 06:31 Resp 18 10/19/23 06:31 BP 143/81 10/19/23 06:31 Pulse Ox 97 10/19/23 06:31 FiO2 Intake & Output 10/18/23 10/19/23 10/19/23 18:59 06:59 18:59 Weight 102.058 kg - Constitutional General appearance: Present: cooperative, obese. Absent: disheveled - EENT Eyes: Absent: abnormal pupil - Neck Neck: Absent: lymphadenopathy - Respiratory Respiratory: bilateral: diminished - Cardiovascular Rhythm: regular Heart sounds: normal: S1, S2 Abnormal Heart Sounds: Absent: S3 Gallop - Gastrointestinal General gastrointestinal: Present: soft. Absent: tenderness - Musculoskeletal Musculoskeletal: Absent: generalized weakness - Psychiatric Psychiatric: Present: A&O x's 3, appropriate affect - Labs CBC & Chem 7: 10/19/23 06:21 10/19/23 06:21 Labs: Abnormal Lab Results - Last 24 Hours (Table) 10/18/23 10/18/23 10/18/23 Range/Units 07:46 10:18 12:06 WBC (3.8-10.6) k/uL RBC (4.30-5.90) m/uL Hgb (13.0-17.5) gm/dL Hct (39.0-53.0) % Neutrophils # (1.3-7.7) k/uL BUN (9-20) mg/dL Creatinine (0.66-1.25) mg/dL Glucose (74-99) mg/dL POC Glucose (mg/dL) 178 H 184 H (70-110) mg/dL AST (17-59) U/L ALT (4-49) U/L Troponin I 4.190 H* (0.000-0.034) ng/mL Total Protein (6.3-8.2) g/dL Albumin (3.5-5.0) g/dL Lipase (23-300) U/L 10/18/23 10/18/23 10/19/23 Range/Units 17:23 22:08 06:21 WBC 14.6 H (3.8-10.6) k/uL RBC 3.93 L (4.30-5.90) m/uL Hgb 12.6 L (13.0-17.5) gm/dL Hct 38.8 L (39.0-53.0) % Neutrophils # 12.9 H (1.3-7.7) k/uL BUN (9-20) mg/dL Creatinine (0.66-1.25) mg/dL Glucose (74-99) mg/dL POC Glucose (mg/dL) 188 H 185 H (70-110) mg/dL AST (17-59) U/L ALT (4-49) U/L Troponin I (0.000-0.034) ng/mL Total Protein (6.3-8.2) g/dL Albumin (3.5-5.0) g/dL Lipase (23-300) U/L 10/19/23 10/19/23 Range/Units 06:21 07:49 WBC (3.8-10.6) k/uL RBC (4.30-5.90) m/uL Hgb (13.0-17.5) gm/dL Hct (39.0-53.0) % Neutrophils # (1.3-7.7) k/uL BUN 38 H (9-20) mg/dL Creatinine 2.58 H (0.66-1.25) mg/dL Glucose 162 H (74-99) mg/dL POC Glucose (mg/dL) 163 H (70-110) mg/dL AST 74 H (17-59) U/L ALT 55 H (4-49) U/L Troponin I (0.000-0.034) ng/mL Total Protein 5.7 L (6.3-8.2) g/dL Albumin 3.0 L (3.5-5.0) g/dL Lipase 528 H (23-300) U/L Assessment and Plan (1) Acute renal disease Current Visit: Yes Status: Acute Code(s): N28.9 - DISORDER OF KIDNEY AND URETER, UNSPECIFIED SNOMED Code(s): 66390310 (2) Diabetes Current Visit: Yes Status: Acute Code(s): E11.9 - TYPE 2 DIABETES MELLITUS WITHOUT COMPLICATIONS SNOMED Code(s): 32831654 (3) Weakness Current Visit: Yes Status: Acute Code(s): R53.1 - WEAKNESS SNOMED Code(s): 13119557 (4) Pancreatitis Current Visit: No Status: Acute Code(s): K85.90 - ACUTE PANCREATITIS WITHOUT NECROSIS OR INFECTION, UNSP SNOMED Code(s): 67923603 Plan: Ask Dr. Todd to see the patient. Check CBC and CMP in a.m. Echocardiogram ordered. Appreciate cardiology input. GI to see for pancreatitis.
[2023-10-19] MEDS: METOPROLOL TARTRATE 50 MG TAB PO SCH (09:59)
--- NOTE | 2023-10-19 11:50 | P.PN ---
Subjective HISTORY OF PRESENT ILLNESS: This is a 78-year-old male with a past medical history significant for hypertension, hyperlipidemia, diabetes, and coronary artery disease with previous stenting to the RCA in 2007. Patient follows in the office with Dr. Boo. We have been asked to see the patient in consultation for elevated troponins. Patient examined at the bedside in the ER. Patient states he was at [facility] for the past 4-5 days. He was apparently being treated for pancreatitis. He states that he had a biliary drainage tube placed at that time. He presented to the hospital with a chief complaint of generalized weakness, fatigue, and abdominal pain. Patient denies having any chest pain or pressure. Denies any shortness of breath. There was questionable hypoxia at home. DIAGNOSTICS: - EKG reveals sinus mechanism with no signs of acute ischemia. - Chest xray negative for acute process - Laboratory data: WBC 9.5. Hemoglobin 12.4. Platelet count 289. D-dimer 6.26. Sodium 139. Potassium 3.9. BUN 27. Creatinine 1.13. Lactic acid 3.9. Repeat 1.1. Troponin 0.120. 2.270. 4.190. proBNP 2690 - Current home cardiac medications include Crestor 10 mg at night and metoprolol tartrate 25 mg twice a day - Most recent echocardiogram obtained in October 2022 revealed ejection fraction 55% with mild MR and mild TR - Cardiac catheterization history: 2007 with stenting to the proximal RCA 10/19/2023 Examined this morning the bedside. Patient continues to report significant lower abdominal pain. Lipase this morning 528. Patient's creatinine increased to 2.58. PHYSICAL EXAM: VITAL SIGNS: Reviewed. GENERAL: Well-developed in no acute distress. HEENT: Head is normocephalic. Pupils are equal, round. Sclerae anicteric. Mucous membranes of the mouth are moist. Neck supple. No JVD or thyromegaly LUNGS: Respirations even and unlabored. Lungs essentially clear to auscultation bilaterally. HEART: Regular rate and rhythm. S1 and S2 heard. ABDOMEN: Soft. Tenderness with palpation of lower quadrants EXTREMITIES: Normal range of motion. No clubbing or cyanosis. Peripheral pulses intact. No lower extremity edema NEUROLOGIC: Awake and alert. Oriented x 3. ASSESSMENT: Abdominal pain Recent hospitalization at [facility] for pancreatitis with placement of biliary drainage tube Worsening acute pancreatitis, per CT scan Non-STEMI Acute kidney injury Coronary artery disease with previous stenting of the RCA, 2007 Hypertension Hyperlipidemia Diabetes PLAN: 2D echo ordered. Awaiting results. Continue aspirin and statin Increase metoprolol tartrate to 50 mg twice a day Continue with conversative management at this time. No plans for cardiac catheterization Begin IV fluids at 75 cc an hour. Monitor kidney function Case discussed with Dr. Padilla this morning. Recommend surgical consultation and nephrology evaluation. Further recommendations pending patient course Nurse practitioner note has been reviewed by physician. Signing provider agrees with the documented findings, assessment, and plan of care documented by PRE PRESS MANAGER as a scribe. Objective - Vital Signs Vital signs: Vital Signs Temp 98.9 F 10/19/23 08:00 Pulse 88 10/19/23 08:00 Resp 20 10/19/23 08:00 BP 119/83 10/19/23 08:00 Pulse Ox 94 L 10/19/23 08:00 FiO2 Intake & Output 10/18/23 10/19/23 10/19/23 18:59 06:59 18:59 Weight 102.058 kg - Labs CBC & Chem 7: 10/19/23 06:21 10/19/23 06:21 Labs: Abnormal Lab Results - Last 24 Hours (Table) 10/18/23 10/18/23 10/18/23 Range/Units 12:06 17:23 22:08 WBC (3.8-10.6) k/uL RBC (4.30-5.90) m/uL Hgb (13.0-17.5) gm/dL Hct (39.0-53.0) % Neutrophils # (1.3-7.7) k/uL BUN (9-20) mg/dL Creatinine (0.66-1.25) mg/dL Glucose (74-99) mg/dL POC Glucose (mg/dL) 184 H 188 H 185 H (70-110) mg/dL AST (17-59) U/L ALT (4-49) U/L Total Protein (6.3-8.2) g/dL Albumin (3.5-5.0) g/dL Lipase (23-300) U/L 10/19/23 10/19/23 10/19/23 Range/Units 06:21 06:21 07:49 WBC 14.6 H (3.8-10.6) k/uL RBC 3.93 L (4.30-5.90) m/uL Hgb 12.6 L (13.0-17.5) gm/dL Hct 38.8 L (39.0-53.0) % Neutrophils # 12.9 H (1.3-7.7) k/uL BUN 38 H (9-20) mg/dL Creatinine 2.58 H (0.66-1.25) mg/dL Glucose 162 H (74-99) mg/dL POC Glucose (mg/dL) 163 H (70-110) mg/dL AST 74 H (17-59) U/L ALT 55 H (4-49) U/L Total Protein 5.7 L (6.3-8.2) g/dL Albumin 3.0 L (3.5-5.0) g/dL Lipase 528 H (23-300) U/L
[2023-10-19 12:12] LABS: Glucose,Whole Blood 152 mg/dL (70-110)
[2023-10-19] MEDS: SODIUM CHLORIDE 0.9% 1,000 ML IV SCH (12:24)
--- NOTE | 2023-10-19 12:45 | P.NPCON ---
History of Present Illness - Reason for Consult acute renal failure - History of Present Illness patient is an 78-year-old male with history of type 2 diabetes, hypertension, recent diagnosis of gallstone pancreatitis status post recent intervention for gallstone at [facility]. According to the patient was discharged home and he complained of shortness of breath and increased weakness and therefore EMS was called on the same day of discharge. Patient was brought into [facility] yesterday. Patient was noted to be hypoxic with O2 sats in the 70s. He continues to complain of abdominal pain, although improved from 1 week ago. no previous history of kidney disease. Serum creatinine was 1.1 on admission and increased to 2.5 today. Patient has been voiding. No significant hypotension noted. Started IV fluids. No NSAIDs noted on home med list. Review of Systems as per HPI Past Medical History Past Medical History: Coronary Artery Disease (CAD), Diabetes Mellitus, Hyperlipidemia, Hypertension, Myocardial Infarction ([place]), Prostate Disorder Additional Past Medical History / Comment(s): ulcers Last Myocardial Infarction Date:: 2011 History of Any Multi-Drug Resistant Organisms: None Reported Past Surgical History: Back Surgery, Cholecystectomy Additional Past Surgical History / Comment(s): fistula Past Anesthesia/Blood Transfusion Reactions: No Reported Reaction Past Psychological History: No Psychological Hx Reported Smoking Status: Never smoker Past Alcohol Use History: None Reported Past Drug Use History: None Reported Medications and Allergies Home Medications Medication Instructions Recorded Confirmed Type ALPRAZolam [Xanax] 0.5 mg PO BID 10/26/13 10/18/23 History Metoprolol Tartrate [Lopressor] 25 mg PO BID 10/26/13 10/18/23 History Tamsulosin HCl [Flomax] 0.4 mg PO DAILY 10/26/13 10/18/23 History metFORMIN HCL [Glucophage] 1,000 mg PO BID-W/MEALS 10/26/13 10/18/23 History Finasteride [Proscar] 5 mg PO DAILY 10/18/23 10/18/23 History Gabapentin [Neurontin] 300 mg PO BID 10/18/23 10/18/23 History Rosuvastatin [Crestor] 10 mg PO HS 10/18/23 10/18/23 History Allergies Allergy/AdvReac Type Severity Reaction Status Date / Time No Known Allergies Allergy Verified 10/18/23 10:14 Physical Exam Vitals: Vital Signs Temp Pulse Resp BP Pulse Ox 10/19/23 12:00 99 F 10/19/23 08:00 98.9 F 88 20 119/83 94 L 10/19/23 07:50 750 F H 88 20 119/83 94 L 10/19/23 06:31 92 18 143/81 97 10/19/23 06:00 87 15 138/76 10/19/23 04:45 98 18 138/76 94 L 10/19/23 04:00 75 19 145/75 10/19/23 02:00 71 21 145/75 10/19/23 00:00 69 23 145/75 10/18/23 23:44 67 22 145/75 94 L 10/18/23 19:27 84 16 151/85 95 Intake and Output 10/18/23 10/19/23 10/19/23 22:59 06:59 14:59 Other: Weight 102.058 kg patient is awake, comfortable, no acute distress. Examination of the heart S1 and S2 Examination of the lungs bilateral breath sounds are heard Abdomen is soft , distended and mildly tender mid abdomen Examination lower extremity shows no significant edema ELECTROTHERAPIST exam grossly intact Results - Lab Results Most recent lab results Calcium 8.5 mg/dL (8.4-10.2) 10/19/23 06:21 Magnesium 1.7 mg/dL (1.6-2.3) 10/17/23 23:19 10/19/23 06:21 10/19/23 06:21 Assessment and Plan Assessment: 1. Acute kidney injury ATN, nonoliguric. UA shows 1+ protein and small blood, hyaline casts 5. No evidence of obstruction on CT abdomen. status post IV contrast for chest CTA on 10/18/2023 2. H/o gallstone pancreatitis status post recent intervention for biliary duct stone at [facility]. Lipase is 528. 3. Type 2 diabetes maintained on Glucophage 4. Volume depletion Plan: continue with IV fluids. Accurate I's and O's Repeat labs in a.m. Agree with discontinuation of metformin. Avoid any nephrotoxic agents
[2023-10-19 17:14] LABS: Glucose,Whole Blood 177 mg/dL (70-110)
[2023-10-19] MEDS: TAMSULOSIN 0.4 MG CAP.ER.24H PO STA (19:01)
[2023-10-19 21:25] LABS: Glucose,Whole Blood 181 mg/dL (70-110)
[2023-10-19] MEDS: HYDROmorphone 0.5 MG/0.5 ML SYRINGE IVP PRN (21:27)
[2023-10-19] MEDS: ONDANSETRON 4 MG/2 ML VIAL IVP PRN (21:28)
[2023-10-20 05:30] LABS: Glucose,Whole Blood 152 mg/dL (70-110)
[2023-10-20 08:04] LABS: HGB 10.8 gm/dL (13.0-17.5); MCH 30.7 pg (25.0-35.0); MCHC 31.7 g/dL (31.0-37.0); Mean Platelet Volume 7.3; Platelet Count 339 k/uL (150-450); RBC 3.51 m/uL (4.30-5.90); RDW 12.9 % (11.5-15.5); WBC 10.6 k/uL (3.8-10.6)
[2023-10-20 08:17] LABS: ALT 36 U/L (4-49); AST 34 U/L (17-59); African American GFR (CKD) 37 (>60 ml/min/1.73 sqM); Albumin 2.5 g/dL (3.5-5.0); Alkaline Phosphatase 88 U/L (38-126); Amylase 37 U/L (30-110); Anion Gap 7 mmol/L; Blood Urea Nitrogen 40 mg/dL (9-20); Calcium 8.1 mg/dL (8.4-10.2); Carbon Dioxide 25 mmol/L (22-30); Chloride 106 mmol/L (98-107); Glucose 158 mg/dL (74-99); Lipase 404 U/L (23-300); Non-African American GFR(CKD) 32 (>60 ml/min/1.73 sqM); Potassium 3.9 mmol/L (3.5-5.1); Sodium 138 mmol/L (137-145); Total Bilirubin 0.6 mg/dL (0.2-1.3)
--- NOTE | 2023-10-20 08:37 | P.PN ---
Subjective Progress Note Date: 10/20/23 This is an 78-year-old male with a past medical history of CAD, diabetes, hypertension, hyperlipidemia, and recent diagnosis of pancreatitis. Patient was apparently recently discharged from [facility] and had some weakness at home and difficulty breathing, so he presented to the emergency department for evaluation. Patient reports he did not feel ready to go home after recent hospitalization. Patient may have had a questionable low pulse ox reading at home. 10/20/2023 Patient seen and evaluated sitting in chair at side of bed this morning. Yesterday patient reported increasing abdominal pain and he was started on a clear liquid diet. Patient reports pain is somewhat improved this morning. Amylase and lipase continue to trend down. Yesterday creatinine was elevated and nephrology was consulted. Creatinine down to 1.95 today. Liver enzymes also increased yesterday, are trending down today. Objective - Vital Signs Vital signs: Vital Signs Temp 97.8 F 10/20/23 02:53 Pulse 80 10/20/23 02:53 Resp 18 10/20/23 02:53 BP 122/69 10/20/23 02:53 Pulse Ox 96 10/20/23 02:53 FiO2 Intake & Output 10/19/23 10/20/23 10/20/23 18:59 06:59 18:59 Intake Total 540 1080 Output Total 131 1000 Balance 409 80 Weight 101.5 kg Intake: Oral 540 1080 Output: Urine 1000 Straight 900 Post Void Residual 131 Other: Voiding Method Urinal - Constitutional General appearance: Present: cooperative, no acute distress - EENT Eyes: Present: PERRLA - Neck Neck: Present: normal ROM. Absent: lymphadenopathy, rigidity - Respiratory Respiratory: bilateral: diminished - Cardiovascular Rhythm: regular Heart sounds: normal: S1, S2 - Gastrointestinal General gastrointestinal: Present: soft. Absent: tenderness - Integumentary Integumentary: Present: normal, normal turgor - Musculoskeletal Musculoskeletal: Present: generalized weakness - Psychiatric Psychiatric: Present: A&O x's 3 - Labs CBC & Chem 7: 10/20/23 07:43 10/20/23 07:43 Labs: Abnormal Lab Results - Last 24 Hours (Table) 10/19/23 10/19/23 10/19/23 Range/Units 12:10 17:12 21:24 RBC (4.30-5.90) m/uL Hgb (13.0-17.5) gm/dL Hct (39.0-53.0) % BUN (9-20) mg/dL Creatinine (0.66-1.25) mg/dL Glucose (74-99) mg/dL POC Glucose (mg/dL) 152 H 177 H 181 H (70-110) mg/dL Calcium (8.4-10.2) mg/dL Total Protein (6.3-8.2) g/dL Albumin (3.5-5.0) g/dL Lipase (23-300) U/L 10/20/23 10/20/23 10/20/23 Range/Units 05:23 07:43 07:43 RBC 3.51 L (4.30-5.90) m/uL Hgb 10.8 L (13.0-17.5) gm/dL Hct 34.0 L (39.0-53.0) % BUN 40 H (9-20) mg/dL Creatinine 1.95 H (0.66-1.25) mg/dL Glucose 158 H (74-99) mg/dL POC Glucose (mg/dL) 152 H (70-110) mg/dL Calcium 8.1 L (8.4-10.2) mg/dL Total Protein 5.0 L (6.3-8.2) g/dL Albumin 2.5 L (3.5-5.0) g/dL Lipase 404 H (23-300) U/L Assessment and Plan (1) Anxiety Current Visit: Yes Status: Acute Code(s): F41.9 - ANXIETY DISORDER, U NSPECIFIED SNOMED Code(s): 73604365 (2) NSTEMI (non-ST elevated myocardial infarction) Current Visit: Yes Status: Acute Code(s): I21.4 - NON-ST ELEVATION (NSTEMI) MYOCARDIAL INFARCTION SNOMED Code(s): 32900055 (3) Pleural effusion Current Visit: Yes Status: Acute Code(s): J90 - PLEURAL EFFUSION, NOT ELSEWHERE CLASSIFIED SNOMED Code(s): 92667547 (4) Weakness Current Visit: Yes Status: Acute Code(s): R53.1 - WEAKNESS SNOMED Code(s): 84291109 (5) Pancreatitis Current Visit: No Status: Acute Code(s): K85.90 - ACUTE PANCREATITIS WITHOUT NECROSIS OR INFECTION, UNSP SNOMED Code(s): 67553001 (6) Diabetes Current Visit: Yes Status: Acute Code(s): E11.9 - TYPE 2 DIABETES MELLITUS W ITHOUT COMPLICATIONS SNOMED Code(s): 82420244 (7) Acute renal disease Current Visit: Yes Status: Acute Code(s): N28.9 - DISORDER OF KIDNEY AND URETER, UNSPECIFIED SNOMED Code(s): 71755367 Plan: Check CBC, CMP, amylase and lipase in the morning. Order ultrasound of liver. Continue clear liquid diet for today. Patient seen and evaluated by nurse practitioner, physician in agreement with plan
--- NOTE | 2023-10-20 09:14 | US ---
EXAMINATION TYPE: US abdomen complete DATE OF EXAM: 10/20/2023 COMPARISON: CT/ US CLINICAL INDICATION: Male, 78 years old with history of Pancreatitis, elevated LFT; Abnormal labs, GB removed TECHNIQUE: Multiple sonographic images of the abdomen are obtained. FINDINGS: EXAM MEASUREMENTS: Liver Length: 19.8 cm CBD: 0.8 cm Spleen: 9.6 cm Right Kidney: 9.8 x 4.9 x 4.8 cm Left Kidney: 11.3 x 5.9 x 5.0 cm CONFORMAL PAD FORMER NOTES: Pancreas: Obscured by bowel gas Liver: Enlarged, Limited views due to overlying bowel gas and pt's larger size Gallbladder: Surgically absent Evidence for sonographic Bell's sign: No CBD: wnl Spleen: wnl Right Kidney: No evidence of hydro, lower pole gassed out Left Kidney: No evidence of hydro Upper IVC: Difficult to visualize Abd Aorta: Obscured by overlying bowel gas IMPRESSION: 1. Prominent CBD within limits of normal for postcholecystectomy patient. No definite calcification b y ultrasound. 2. Hepatomegaly correlate for underlying hepatocellular disease.
[2023-10-20] MEDS: TAMSULOSIN 0.4 MG CAP.ER.24H PO SCH (10:14)
[2023-10-20] MEDS: HYDROmorphone 1 MG/ML 1 ML SYRINGE IVP PRN (10:30)
--- NOTE | 2023-10-20 10:52 | CA ---
Transthoracic Echo Report Name: Ahsan Guillermo Age: 78 Gender: M : 1945 Exam Date: 10/19/2023 08:30 Exam Location: [facility] Ht (in): 71 Wt (lb): 225 Ordering Physician: Valentino Jackson MD Attending/Referring Phys: Bicycle Rental Clerk Veronika Chris RDCS Procedure CPT: Indications: nstemi Cardiac Hx: Technical Quality: Fair Contrast 1: Total Dose (mL): Contrast 2: Total Dose (mL): MEASUREMENTS (Male / Female) Normal Values 2D ECHO LV Diastolic Diameter PLAX 4.3 cm 4.2 - 5.9 / 3.9 - 5.3 cm LV Systolic Diameter PLAX 2.5 cm IVS Diastolic Thickness 1.2 cm 0.6 - 1.0 / 0.6 - 0.9 cm LVPW Diastolic Thickness 1.4 cm 0.6 - 1.0 / 0.6 - 0.9 cm LV Relative Wall Thickness 0.6 RV Internal Dim ED PLAX 3.2 cm LA Volume 59.2 cm??? 18 - 58 / 22 - 52 cm??? LA Volume Index 25.8 cm???/m??? 16 - 28 cm???/m??? M-MODE Aortic Root Diameter MM 3.7 cm LA Systolic Diameter MM 4.2 cm LA Ao Ratio MM 1.1 AV Cusp Separation MM 2.1 cm DOPPLER AV Peak Velocity 155.0 cm/s AV Peak Gradient 9.6 mmHg AV Mean Velocity 111.9 cm/s AV Mean Gradient 5.6 mmHg AV Velocity Time Integral 27.7 cm MV Area PHT 4.4 cm??? Mitral E Point Velocity 91.1 cm/s Mitral A Point Velocity 119.5 cm/s Mitral E to A Ratio 0.8 MV Deceleration Time 170.8 ms MV E' Velocity 4.8 cm/s Mitral E to MV E' Ratio 19.0 TR Peak Velocity 232.3 cm/s TR Peak Gradient 21.6 mmHg Right Ventricular Systolic Press 24.7 mmHg FINDINGS Left Ventricle Mildly increased left ventricular wall thickness. Left ventricular cavity size normal. No obvious regional wall motion abnormalities. Left ventricular ejection fraction is estimated at 50-55 %. Grade 1 diastolic dysfunction. Right Ventricle Normal right ventricular size and function. Right Atrium Normal right atrial size. Left Atrium Mildly increased left atrial volume. Mildly increased left atrial area. Mitral Valve Structurally normal mitral valve. Mitral annular calcification. Mild to moderate mitral regurgitation. Aortic Valve Trileaflet aortic valve. No aortic valve stenosis or regurgitation. Tricuspid Valve Structurally normal tricuspid valve. Mild tricuspid regurgitation. Pulmonic Valve Structurally normal pulmonic valve. Pericardium No pericardial effusion. Aorta Normal size aortic root and proximal ascending aorta. CONCLUSIONS Normal LV size fairly well-preserved systolic function no significant wall motion abnormality. Mild mitral annular calcification and aortic valve sclerosis no restriction. No pericardial effusion mild to moderate mitral and mild tricuspid regurgitation. Previewed by: Dr. Madina Boo MD (Electronically Signed) Final Date: 20 October 2023 10:51
[2023-10-20 11:31] LABS: Glucose,Whole Blood 196 mg/dL (70-110)
--- NOTE | 2023-10-20 11:56 | P.PN ---
Subjective HISTORY OF PRESENT ILLNESS: This is a 78-year-old male with a past medical history significant for hypertension, hyperlipidemia, diabetes, and coronary artery disease with previous stenting to the RCA in 2007. Patient follows in the office with Dr. Boo. We have been asked to see the patient in consultation for elevated troponins. Patient examined at the bedside in the ER. Patient states he was at [facility] for the past 4-5 days. He was apparently being treated for pancreatitis. He states that he had a biliary drainage tube placed at that time. He presented to the hospital with a chief complaint of generalized weakness, fatigue, and abdominal pain. Patient denies having any chest pain or pressure. Denies any shortness of breath. There was questionable hypoxia at home. DIAGNOSTICS: - EKG reveals sinus mechanism with no signs of acute ischemia. - Chest xray negative for acute process - Laboratory data: WBC 9.5. Hemoglobin 12.4. Platelet count 289. D-dimer 6.26. Sodium 139. Potassium 3.9. BUN 27. Creatinine 1.13. Lactic acid 3.9. Repeat 1.1. Troponin 0.120. 2.270. 4.190. proBNP 2690 - Current home cardiac medications include Crestor 10 mg at night and metoprolol tartrate 25 mg twice a day - Most recent echocardiogram obtained in October 2022 revealed ejection fraction 55% with mild MR and mild TR - Cardiac catheterization history: 2007 with stenting to the proximal RCA 10/19/2023 Examined this morning the bedside. Patient continues to report significant lower abdominal pain. Lipase this morning 528. Patient's creatinine increased to 2.58. 10/20/2023 Examined this morning at the bedside. Patient denies chest pain or pressure. He denies shortness of breath. Patient continues to report significant lower quadrant abdominal pain. Lipase 404. Creatinine 1.95. He remains on IV fluids. Echocardiogram completed revealing ejection fraction 50 to 55%, mild to moderate MR and mild TR PHYSICAL EXAM: VITAL SIGNS: Reviewed. GENERAL: Well-developed in no acute distress. HEENT: Head is normocephalic. Pupils are equal, round. Sclerae anicteric. Mucous membranes of the mouth are moist. Neck supple. No JVD or thyromegaly LUNGS: Respirations even and unlabored. Lungs essentially clear to auscultation bilaterally. HEART: Regular rate and rhythm. S1 and S2 heard. ABDOMEN: Soft. Tenderness with palpation of lower quadrants EXTREMITIES: Normal range of motion. No clubbing or cyanosis. Peripheral pulses intact. No lower extremity edema NEUROLOGIC: Awake and alert. Oriented x 3. ASSESSMENT: Abdominal pain Recent hospitalization at [facility] for pancreatitis with placement of bi liary drainage tube Worsening acute pancreatitis, per CT scan Non-STEMI Acute kidney injury Coronary artery disease with previous stenting of the RCA, 2007 Hypertension Hyperlipidemia Diabetes PLAN: Continue current cardiac medications Continue with conversative management at this time. No plans for cardiac catheterization Further recommendations pending patient course Nurse practitioner note has been reviewed by physician. Signing provider agrees with the documented findings, assessment, and plan of care documented by CHUCK WAGON COOK as a scribe. Objective - Vital Signs Vital signs: Vital Signs Temp 98.1 F 10/20/23 08:00 Pulse 86 10/20/23 08:00 Resp 17 10/20/23 08:00 BP 109/77 10/20/23 08:00 Pulse Ox 95 10/20/23 08:00 FiO2 Intake & Output 10/19/23 10/20/23 10/20/23 18:59 06:59 18:59 Intake Total 540 1080 Output Total 131 1000 900 Balance 409 80 -900 Weight 101.5 kg Intake: Oral 540 1080 Output: Urine 1000 900 Straight 900 900 Post Void Residual 131 Other: Voiding Method Urinal Urinal - Labs CBC & Chem 7: 10/20/23 07:43 10/20/23 07:43 Labs: Abnormal Lab Results - Last 24 Hours (Table) 10/19/23 10/19/23 10/19/23 Range/Units 12:10 17:12 21:24 RBC (4.30-5.90) m/uL Hgb (13.0-17.5) gm/dL Hct (39.0-53.0) % BUN (9-20) mg/dL Creatinine (0.66-1.25) mg/dL Glucose (74-99) mg/dL POC Glucose (mg/dL) 152 H 177 H 181 H (70-110) mg/dL Hemoglobin A1c (<=6.0) % Calcium (8.4-10.2) mg/dL Total Protein (6.3-8.2) g/dL Albumin (3.5-5.0) g/dL Lipase (23-300) U/L 10/20/23 10/20/23 10/20/23 Range/Units 05:23 07:43 07:43 RBC 3.51 L (4.30-5.90) m/uL Hgb 10.8 L (13.0-17.5) gm/dL Hct 34.0 L (39.0-53.0) % BUN (9-20) mg/dL Creatinine (0.66-1.25) mg/dL Glucose (74-99) mg/dL POC Glucose (mg/dL) 152 H (70-110) mg/dL Hemoglobin A1c 6.5 H (<=6.0) % Calcium (8.4-10.2) mg/dL Total Protein (6.3-8.2) g/dL Albumin (3.5-5.0) g/dL Lipase (23-300) U/L 10/20/23 10/20/23 Range/Units 07:43 11:29 RBC (4.30-5.90) m/uL Hgb (13.0-17.5) gm/dL Hct (39.0-53.0) % BUN 40 H (9-20) mg/dL Creatinine 1.95 H (0.66-1.25) mg/dL Glucose 158 H (74-99) mg/dL POC Glucose (mg/dL) 196 H (70-110) mg/dL Hemoglobin A1c (<=6.0) % Calcium 8.1 L (8.4-10.2) mg/dL Total Protein 5.0 L (6.3-8.2) g/dL Albumin 2.5 L (3.5-5.0) g/dL Lipase 404 H (23-300) U/L
--- NOTE | 2023-10-20 12:17 | P.PN ---
Subjective patient is seen for follow-up for acute kidney injury. Currently maintained on IV fluids. Serum creatinine has improved to 1.9 from 2.58 yesterday. Patient continues to complain of abdominal pain although much decreased in intensity. Serum lipase down to 404 from 812 on admission. Patient was noticed to have significant urine retention with 900 mL of urine obtained on straight catheterization 2. Fisher catheter has been placed this morning. Objective - Vital Signs Vital signs: Vital Signs Temp 98.1 F 10/20/23 08:00 Pulse 86 10/20/23 08:00 Resp 17 10/20/23 08:00 BP 109/77 10/20/23 08:00 Pulse Ox 95 10/20/23 08:00 FiO2 Intake & Output 10/19/23 10/20/23 10/20/23 18:59 06:59 18:59 Intake Total 540 1080 Output Total 131 1000 900 Balance 409 80 -900 Weight 101.5 kg Intake: Oral 540 1080 Output: Urine 1000 900 Straight 900 900 Post Void Residual 131 Other: Voiding Method Urinal Urinal - Exam patient is awake, comfortable, no acute distress. Examination of the heart S1 and S2 Examination of the lungs bilateral breath sounds are heard Abdomen is soft , mild abdominal tenderness Examination lower extremity shows no significant edema ATTENUATOR exam grossly intact - Labs CBC & Chem 7: 10/20/23 07:43 10/20/23 07:43 Labs: Abnormal Lab Results - Last 24 Hours (Table) 10/19/23 10/19/23 10/19/23 Range/Units 12:10 17:12 21:24 RBC (4.30-5.90) m/uL Hgb (13.0-17.5) gm/dL Hct (39.0-53.0) % BUN (9-20) mg/dL Creatinine (0.66-1.25) mg/dL Glucose (74-99) mg/dL POC Glucose (mg/dL) 152 H 177 H 181 H (70-110) mg/dL Hemoglobin A1c (<=6.0) % Calcium (8.4-10.2) mg/dL Total Protein (6.3-8.2) g/dL Albumin (3.5-5.0) g/dL Lipase (23-300) U/L 10/20/23 10/20/23 10/20/23 Range/Units 05:23 07:43 07:43 RBC 3.51 L (4.30-5.90) m/uL Hgb 10.8 L (13.0-17.5) gm/dL Hct 34.0 L (39.0-53.0) % BUN (9-20) mg/dL Creatinine (0.66-1.25) mg/dL Glucose (74-99) mg/dL POC Glucose (mg/dL) 152 H (70-110) mg/dL Hemoglobin A1c 6.5 H (<=6.0) % Calcium (8.4-10.2) mg/dL Total Protein (6.3-8.2) g/dL Albumin (3.5-5.0) g/dL Lipase (23-300) U/L 10/20/23 10/20/23 Range/Units 07:43 11:29 RBC (4.30-5.90) m/uL Hgb (13.0-17.5) gm/dL Hct (39.0-53.0) % BUN 40 H (9-20) mg/dL Creatinine 1.95 H (0.66-1.25) mg/dL Glucose 158 H (74-99) mg/dL POC Glucose (mg/dL) 196 H (70-110) mg/dL Hemoglobin A1c (<=6.0) % Calcium 8.1 L (8.4-10.2) mg/dL Total Protein 5.0 L (6.3-8.2) g/dL Albumin 2.5 L (3.5-5.0) g/dL Lipase 404 H (23-300) U/L Assessment and Plan Assessment: 1. Acute kidney injury ATN, nonoliguric. UA shows 1+ protein and small blood, hyaline casts 5. No evidence of obstruction on CT abdomen. status post IV contrast for chest CTA on 10/18/2023 2. H/o gallstone pancreatitis status post recent intervention for biliary duct stone at [facility]. Lipase is 528. 3. Type 2 diabetes maintained on Glucophage 4. Volume depletion 5. Urine retention currently with indwelling Fisher catheter. Plan: continue with IV fluids. continue with Fisher catheter. Repeat labs in a.m. Avoid any nephrotoxic agents.
[2023-10-20] MEDS: metFORMIN 500 MG TAB PO SCH (14:16)
[2023-10-20 16:53] LABS: Glucose,Whole Blood 175 mg/dL (70-110)
[2023-10-20] MEDS ORDERED: LOPERAMIDE 2 MG CAP PO PRN (18:19)
[2023-10-20 19:52] LABS: Glucose,Whole Blood 235 mg/dL (70-110)
[2023-10-21 06:26] LABS: Glucose,Whole Blood 146 mg/dL (70-110)
[2023-10-21 06:56] LABS: HCT 33.3 % (39.0-53.0); Hypochromasia Slight; MCH 32.1 pg (25.0-35.0); MCV 97.5 fL (80.0-100.0); Mean Platelet Volume 7.2; Platelet Count 340 k/uL (150-450); RBC 3.41 m/uL (4.30-5.90); RDW 12.9 % (11.5-15.5); WBC 12.4 k/uL (3.8-10.6)
[2023-10-21 07:12] LABS: ALT 29 U/L (4-49); African American GFR (CKD) 58 (>60 ml/min/1.73 sqM); Albumin 2.5 g/dL (3.5-5.0); Amylase 34 U/L (30-110); Anion Gap 4 mmol/L; Blood Urea Nitrogen 28 mg/dL (9-20); Calcium 8.3 mg/dL (8.4-10.2); Carbon Dioxide 27 mmol/L (22-30); Chloride 105 mmol/L (98-107); Glucose 125 mg/dL (74-99); Lipase 322 U/L (23-300); Non-African American GFR(CKD) 50 (>60 ml/min/1.73 sqM); Sodium 136 mmol/L (137-145); Total Bilirubin 0.8 mg/dL (0.2-1.3)
[2023-10-21 07:17] LABS: AST 39 U/L (17-59); Potassium 3.8 mmol/L (3.5-5.1)
[2023-10-21 07:18] LABS: Alkaline Phosphatase 87 U/L (38-126)
--- NOTE | 2023-10-21 08:43 | P.PN ---
Subjective Principal diagnosis: Elevated troponin with pancreatitis on CT scan. The patient is an 78-year-old white male who was recently discharged from [facility]. The patient complained of significant shortness of breath. Elevation of creatinine was noted this morning. Will ask nephrology to see the patient for acute renal failure. CT scan did show mild pancreatitis enzymes are decreasing from a pancreatic perspective, however there was slight bump in his liver function tests. Will ask GI to comment. He states some lower umbilical pain. But some distention. No appetite stated. Liver enzymes are normalizing. Abdominal ultrasound does not show any type of calcification or residual stone. Patient developed acute anemia. General surgery has now been consulted. Objective - Vital Signs Vital signs: Vital Signs Temp 98.4 F 10/20/23 20:10 Pulse 74 10/21/23 03:49 Resp 18 10/21/23 03:49 BP 146/79 10/21/23 03:49 Pulse Ox 93 L 10/21/23 03:49 FiO2 Intake & Output 10/20/23 10/21/23 10/21/23 18:59 06:59 18:59 Output Total 1800 Balance -1800 Weight 103.5 kg Output: Urine 1800 Straight 900 Other: Voiding Method Urinal Indwelling Catheter # Bowel Movements 2 1 - Constitutional General appearance: Present: average body habitus, cooperative - EENT Eyes: Absent: abnormal pupil - Respiratory Respiratory: bilateral: CTA - Cardiovascular Rhythm: regular Heart sounds: normal: S1, S2 Abnormal Heart Sounds: Absent: S3 Gallop - Gastrointestinal General gastrointestinal: Present: normal bowel sounds, soft. Absent: tendernes s - Integumentary Integumentary: Absent: cellulitis - Neurologic Neurologic: Present: CNII-XII intact - Labs CBC & Chem 7: 10/21/23 06:30 10/21/23 06:30 Labs: Abnormal Lab Results - Last 24 Hours (Table) 10/20/23 10/20/23 10/20/23 Range/Units 07:43 11:29 16:52 WBC (3.8-10.6) k/uL RBC (4.30-5.90) m/uL Hgb (13.0-17.5) gm/dL Hct (39.0-53.0) % Sodium (137-145) mmol/L BUN (9-20) mg/dL Creatinine (0.66-1.25) mg/dL Glucose (74-99) mg/dL POC Glucose (mg/dL) 196 H 175 H (70-110) mg/dL Hemoglobin A1c 6.5 H (<=6.0) % Calcium (8.4-10.2) mg/dL Total Protein (6.3-8.2) g/dL Albumin (3.5-5.0) g/dL Lipase (23-300) U/L 10/20/23 10/21/23 10/21/23 Range/Units 19:50 06:26 06:30 WBC 12.4 H (3.8-10.6) k/uL RBC 3.41 L (4.30-5.90) m/uL Hgb 11.0 L (13.0-17.5) gm/dL Hct 33.3 L (39.0-53.0) % Sodium (137-145) mmol/L BUN (9-20) mg/dL Creatinine (0.66-1.25) mg/dL Glucose (74-99) mg/dL POC Glucose (mg/dL) 235 H 146 H (70-110) mg/dL Hemoglobin A1c (<=6.0) % Calcium (8.4-10.2) mg/dL Total Protein (6.3-8.2) g/dL Albumin (3.5-5.0) g/dL Lipase (23-300) U/L 10/21/23 Range/Units 06:30 WBC (3.8-10.6) k/uL RBC (4.30-5.90) m/uL Hgb (13.0-17.5) gm/dL Hct (39.0-53.0) % Sodium 136 L (137-145) mmol/L BUN 28 H (9-20) mg/dL Creatinine 1.33 H (0.66-1.25) mg/dL Glucose 125 H (74-99) mg/dL POC Glucose (mg/dL) (70-110) mg/dL Hemoglobin A1c (<=6.0) % Calcium 8.3 L (8.4-10.2) mg/dL Total Protein 5.0 L (6.3-8.2) g/dL Albumin 2.5 L (3.5-5.0) g/dL Lipase 322 H (23-300) U/L Assessment and Plan (1) Acute renal disease Current Visit: Yes Status: Acute Code(s): N28.9 - DISORDER OF KIDNEY AND URETER, UNSPECIFIED SNOMED Code(s): 26200800 (2) Diabetes Current Visit: Yes Status: Acute Code(s): E11.9 - TYPE 2 DIABETES MELLITUS WITHOUT COMPLICATIONS SNOMED Code(s): 74935123 (3) Weakness Current Visit: Yes Status: Acute Code(s): R53.1 - WEAKNESS SNOMED Code(s): 10284846 (4) Pancreatitis Current Visit: No Status: Acute Code(s): K85.90 - ACUTE PANCREATITIS WITHOUT NECROSIS OR INFECTION, UNSP SNOMED Code(s): 79875511 Plan: Appreciate nephrology and multiple consultants input. Check CBC and CMP in a.m. Echocardiogram reviewed Appreciate cardiology input. General surgery to see the patient for anemia element. CBC and CMP in a.m.
--- NOTE | 2023-10-21 11:25 | P.PN ---
Subjective HISTORY OF PRESENT ILLNESS: This is a 78-year-old male with a past medical history significant for hypertension, hyperlipidemia, diabetes, and coronary artery disease with previous stenting to the RCA in 2007. Patient follows in the office with Dr. Boo. We have been asked to see the patient in consultation for elevated troponins. Patient examined at the bedside in the ER. Patient states he was at [facility] for the past 4-5 days. He was apparently being treated for pancreatitis. He states that he had a biliary drainage tube placed at that time. He presented to the hospital with a chief complaint of generalized weakness, fatigue, and abdominal pain. Patient denies having any chest pain or pressure. Denies any shortness of breath. There was questionable hypoxia at home. DIAGNOSTICS: - EKG reveals sinus mechanism with no signs of acute ischemia. - Chest xray negative for acute process - Laboratory data: WBC 9.5. Hemoglobin 12.4. Platelet count 289. D-dimer 6.26. Sodium 139. Potassium 3.9. BUN 27. Creatinine 1.13. Lactic acid 3.9. Repeat 1.1. Troponin 0.120. 2.270. 4.190. proBNP 2690 - Current home cardiac medications include Crestor 10 mg at night and metoprolol tartrate 25 mg twice a day - Most recent echocardiogram obtained in October 2022 revealed ejection fraction 55% with mild MR and mild TR - Cardiac catheterization history: 2007 with stenting to the proximal RCA 10/19/2023 Examined this morning the bedside. Patient continues to report significant lower abdominal pain. Lipase this morning 528. Patient's creatinine increased to 2.58. 10/20/2023 Examined this morning at the bedside. Patient denies chest pain or pressure. He denies shortness of breath. Patient continues to report significant lower quadrant abdominal pain. Lipase 404. Creatinine 1.95. He remains on IV fluids. Echocardiogram completed revealing ejection fraction 50 to 55%, mild to moderate MR and mild TR 10/21/2023 Patient examined this morning the bedside. Patient denies chest pain or pressure. He denies shortness of breath. Vital signs are stable. He reports improving abdominal pain. PHYSICAL EXAM: VITAL SIGNS: Reviewed. GENERAL: Well-developed in no acute distress. HEENT: Head is normocephalic. Pupils are equal, round. Sclerae anicteric. Mucous membranes of the mouth are moist. Neck supple. No JVD or thyromegaly LUNGS: Respirations even and unlabored. Lungs essentially clear to auscultation bilaterally. HEART: Regular rate and rhythm. S1 and S2 heard. ABDOMEN: Soft. Tenderness with palpation of lower quadrants EXTREMITIES: Normal range of motion. No clubbing or cyanosis. Peripheral puls es intact. No lower extremity edema NEUROLOGIC: Awake and alert. Oriented x 3. ASSESSMENT: Abdominal pain Recent hospitalization at [facility] for pancreatitis with placement of biliary drainage tube Worsening acute pancreatitis, per CT scan Non-STEMI Acute kidney injury Coronary artery disease with previous stenting of the RCA, 2007 Hypertension Hyperlipidemia Diabetes PLAN: Continue current cardiac medications Continue with conversative management at this time. No plans for cardiac catheterization No further inpatient recommendations from a cardiac standpoint We will sign off. Please reconsult if needed. Nurse practitioner note has been reviewed by physician. Signing provider agrees with the documented findings, assessment, and plan of care documented by POCKET SECRETARY ASSEMBLER as a scribe. Objective - Vital Signs Vital signs: Vital Signs Temp 98.3 F 10/21/23 08:10 Pulse 71 10/21/23 08:10 Resp 16 10/21/23 08:10 BP 148/75 10/21/23 08:10 Pulse Ox 95 10/21/23 08:10 FiO2 Intake & Output 10/20/23 10/21/23 10/21/23 18:59 06:59 18:59 Output Total 1800 Balance -1800 Weight 103.5 kg Output: Urine 1800 Straight 900 Other: Voiding Method Urinal Indwelling Catheter Indwelling Catheter # Bowel Movements 2 1 - Labs CBC & Chem 7: 10/21/23 06:30 10/21/23 06:30 Labs: Abnormal Lab Results - Last 24 Hours (Table) 10/20/23 10/20/23 10/20/23 Range/Units 11:29 16:52 19:50 WBC (3.8-10.6) k/uL RBC (4.30-5.90) m/uL Hgb (13.0-17.5) gm/dL Hct (39.0-53.0) % Sodium (137-145) mmol/L BUN (9-20) mg/dL Creatinine (0.66-1.25) mg/dL Glucose (74-99) mg/dL POC Glucose (mg/dL) 196 H 175 H 235 H (70-110) mg/dL Calcium (8.4-10.2) mg/dL Total Protein (6.3-8.2) g/dL Albumin (3.5-5.0) g/dL Lipase (23-300) U/L 10/21/23 10/21/23 10/21/23 Range/Units 06:26 06:30 06:30 WBC 12.4 H (3.8-10.6) k/uL RBC 3.41 L (4.30-5.90) m/uL Hgb 11.0 L (13.0-17.5) gm/dL Hct 33.3 L (39.0-53.0) % Sodium 136 L (137-145) mmol/L BUN 28 H (9-20) mg/dL Creatinine 1.33 H (0.66-1.25) mg/dL Glucose 125 H (74-99) mg/dL POC Glucose (mg/dL) 146 H (70-110) mg/dL Calcium 8.3 L (8.4-10.2) mg/dL Total Protein 5.0 L (6.3-8.2) g/dL Albumin 2.5 L (3.5-5.0) g/dL Lipase 322 H (23-300) U/L
[2023-10-21 11:49] LABS: Glucose,Whole Blood 126 mg/dL (70-110)
--- NOTE | 2023-10-21 13:24 | P.GSCN ---
History of Present Illness Consult date: 10/21/23 History of present illness: CHIEF COMPLAINT: shortness of breath and weakness HISTORY OF PRESENT ILLNESS: this is an 78-year-old male who presented to hospital with worsening shortness of breath and weakness. He was diagnosed with a non-ST elevated AR and an acute kidney injury.no plans for heart catheterization. Patient currently not on any blood thinners. He currently denies any abdominal pain. Surgical service consulted in regards to possible blood in the stools. Patient denies any blood in his stools. Further discussion with nursing staff reported that there was blood 1 patient wiped his rectum. Patient denies any abdominal pain. Denies any rectal pain. He was recently at [facility] 4-5 days ago with pancreatitis and had a biliary stent placed at that time. Patient has a prior history of cholecystectomy several years ago. Patient seen and examined with Dr. reyes PAST MEDICAL HISTORY: Coronary Artery Disease (CAD), Diabetes Mellitus, Hyperlipidemia, Hypertension, Myocardial Infarction (AR), Prostate Disorder PAST SURGICAL HISTORY: Back Surgery, Cholecystectomy, Heart Catheterization With Stent MEDICATIONS: See below ALLERGIES: See below SOCIAL HISTORY: No illicit drug use. REVIEW OF SYSTEMS: CONSTITUTIONAL: Denies fever or chills. HEENT: Denies blurred vision, vision changes, or eye pain. Denies hemoptysis CARDIOVASCULAR: Denies chest pain or pressure. RESPIRATORY: No shortness of breath. GASTROINTESTINAL: See HPI for pertinent findings HEMATOLOGIC: Denies bleeding disorders. GENITOURINARY: Denies any blood in urine or increased urinary frequency. SKIN: Denies pruitis. Denies rash. PHYSICAL EXAM: VITAL SIGNS: Reviewed GENERAL: Well-developed in no acute distress. HEENT: No sclera icterus. Extraocular movements grossly intact. Moist buccal mucosa. Head is atraumatic, normocephalic. No nasal drainage. ABDOMEN: Soft. nontender. Nondistended NEUROLOGIC: Alert and oriented. Cranial nerves II through XII grossly intact. LABORATORY DATA: WBC 12.4 HB 11.0 platelets 340 Sodium 136 potassium 3.8 creatinine 1.33 total bilirubin 0.8 mildly elevated AST ALT on 10/18 now down to AST of 39 ALT normal at 29 alk phos 86 lipase 812 down to 322 IMAGING: computed tomography scan abdomen and pelvis reports new internal biliary drainage catheter. No new urinary dilatation. There is more prominent infl ammatory change surrounding the head and body of the pancreas rate and concern for worsening acute pancreatitis. Abdominal ultrasound reported prominent CBD within limits of normal for post cholecystectomy patient. No definite calcification ultrasound. Hepatomegaly. ASSESSMENT: 1. Rectal bleeding noted with wiping, likely due to hemorrhoids. Hemoglobin stable at 11.0 2. Pancreatitis 4-5 days ago at [facility] with biliary stent placed. History of cholecystectomy several years ago. Lipase trending down. PLAN: -continue to observe -continue to monitor for any signs or symptoms of bleeding -Tucks pads ordered -Continue to monitor hemoglobin -Patient may need endoscopy. We'll monitor Physician Ammonium Nitrate Neutralizer note has been reviewed by physician. Signing provider agrees with the documented findings, assessment, and plan of care. Past Medical History Past Medical History: Coronary Artery Disease (CAD), Diabetes Mellitus, Hyperlipidemia, Hypertension, Myocardial Infarction (AR), Prostate Disorder Additional Past Medical History / Comment(s): ulcers Last Myocardial Infarction Date:: 2011 History of Any Multi-Drug Resistant Organisms: None Reported Past Surgical History: Back Surgery, Cholecystectomy Additional Past Surgical History / Comment(s): fistula Past Anesthesia/Blood Transfusion Reactions: No Reported Reaction Past Psychological History: No Psychological Hx Reported Smoking Status: Never smoker Past Alcohol Use History: None Reported Past Drug Use History: None Reported Medications and Allergies Home Medications Medication Instructions Recorded Confirmed Type ALPRAZolam [Xanax] 0.5 mg PO BID 10/26/13 10/18/23 History Metoprolol Tartrate [Lopressor] 25 mg PO BID 10/26/13 10/18/23 History Tamsulosin HCl [Flomax] 0.4 mg PO DAILY 10/26/13 10/18/23 History metFORMIN HCL [Glucophage] 1,000 mg PO BID-W/MEALS 10/26/13 10/18/23 History Finasteride [Proscar] 5 mg PO DAILY 10/18/23 10/18/23 History Gabapentin [Neurontin] 300 mg PO BID 10/18/23 10/18/23 History Rosuvastatin [Crestor] 10 mg PO HS 10/18/23 10/18/23 History Allergies Allergy/AdvReac Type Severity Reaction Status Date / Time No Known Allergies Allergy Verified 10/18/23 10:14 Surgical - Exam Vital Signs Temp Pulse Resp BP Pulse Ox 99.7 F H 137 H 22 136/87 94 L 10/17/23 23:11 10/17/23 23:11 10/17/23 23:11 10/17/23 23:11 10/17/23 23:11 Results - Labs 10/21/23 06:30 10/21/23 06:30 Abnormal Lab Results - Last 24 Hours (Table) 10/20/23 10/20/23 10/20/23 Range/Units 07:43 11:29 16:52 WBC (3.8-10.6) k/uL RBC (4.30-5.90) m/uL Hgb (13.0-17.5) gm/dL Hct (39.0-53.0) % Sodium (137-145) mmol/L BUN (9-20) mg/dL Creatinine (0.66-1.25) mg/dL Glucose (74-99) mg/dL POC Glucose (mg/dL) 196 H 175 H (70-110) mg/dL Hemoglobin A1c 6.5 H (<=6.0) % Calcium (8.4-10.2) mg/dL Total Protein (6.3-8.2) g/dL Albumin (3.5-5.0) g/dL Lipase (23-300) U/L 10/20/23 10/21/23 10/21/23 Range/Units 19:50 06:26 06:30 WBC 12.4 H (3.8-10.6) k/uL RBC 3.41 L (4.30-5.90) m/uL Hgb 11.0 L (13.0-17.5) gm/dL Hct 33.3 L (39.0-53.0) % Sodium (137-145) mmol/L BUN (9-20) mg/dL Creatinine (0.66-1.25) mg/dL Glucose (74-99) mg/dL POC Glucose (mg/dL) 235 H 146 H (70-110) mg/dL Hemoglobin A1c (<=6.0) % Calcium (8.4-10.2) mg/dL Total Protein (6.3-8.2) g/dL Albumin (3.5-5.0) g/dL Lipase (23-300) U/L 10/21/23 Range/Units 06:30 WBC (3.8-10.6) k/uL RBC (4.30-5.90) m/uL Hgb (13.0-17.5) gm/dL Hct (39.0-53.0) % Sodium 136 L (137-145) mmol/L BUN 28 H (9-20) mg/dL Creatinine 1.33 H (0.66-1.25) mg/dL Glucose 125 H (74-99) mg/dL POC Glucose (mg/dL) (70-110) mg/dL Hemoglobin A1c (<=6.0) % Calcium 8.3 L (8.4-10.2) mg/dL Total Protein 5.0 L (6.3-8.2) g/dL Albumin 2.5 L (3.5-5.0) g/dL Lipase 322 H (23-300) U/L Diabetes panel 10/20/23 10/21/23 Range/Units 07:43 06:30 Sodium 136 L (137-145) mmol/L Potassium 3.8 (3.5-5.1) mmol/L Chloride 105 (98-107) mmol/L Carbon Dioxide 27 (22-30) mmol/L BUN 28 H (9-20) mg/dL Creatinine 1.33 H (0.66-1.25) mg/dL Glucose 125 H (74-99) mg/dL Hemoglobin A1c 6.5 H (<=6.0) % Calcium 8.3 L (8.4-10.2) mg/dL AST 39 (17-59) U/L ALT 29 (4-49) U/L Alkaline Phosphatase 87 (38-126) U/L Total Protein 5.0 L (6.3-8.2) g/dL Albumin 2.5 L (3.5-5.0) g/dL Calcium panel 10/21/23 Range/Units 06:30 Calcium 8.3 L (8.4-10.2) mg/dL Albumin 2.5 L (3.5-5.0) g/dL Pituitary panel 10/21/23 Range/Units 06:30 Sodium 136 L (137-145) mmol/L Potassium 3.8 (3.5-5.1) mmol/L Chloride 105 (98-107) mmol/L Carbon Dioxide 27 (22-30) mmol/L BUN 28 H (9-20) mg/dL Creatinine 1.33 H (0.66-1.25) mg/dL Glucose 125 H (74-99) mg/dL Calcium 8.3 L (8.4-10.2) mg/dL Adrenal panel 10/21/23 Range/Units 06:30 Sodium 136 L (137-145) mmol/L Potassium 3.8 (3.5-5.1) mmol/L Chloride 105 (98-107) mmol/L Carbon Dioxide 27 (22-30) mmol/L BUN 28 H (9-20) mg/dL Creatinine 1.33 H (0.66-1.25) mg/dL Glucose 125 H (74-99) mg/dL Calcium 8.3 L (8.4-10.2) mg/dL Total Bilirubin 0.8 (0.2-1.3) mg/dL AST 39 (17-59) U/L ALT 29 (4-49) U/L Alkaline Phosphatase 87 (38-126) U/L Total Protein 5.0 L (6.3-8.2) g/dL Albumin 2.5 L (3.5-5.0) g/dL
--- NOTE | 2023-10-21 13:39 | P.PN ---
Subjective patient is seen for follow-up for acute kidney injury. Currently maintained on IV fluids. Serum creatinine has improved to 1.3 from 2.58 yesterday. Serum lipase down to 322 from 812 on admission. Patient was noticed to have significant urine retention with 900 mL of urine obtained on straight catheterization 2. currently with indwelling Fisher catheter Objective - Vital Signs Vital signs: Vital Signs Temp 98 F 10/21/23 11:10 Pulse 64 10/21/23 11:10 Resp 15 10/21/23 11:10 BP 136/64 10/21/23 11:10 Pulse Ox 96 10/21/23 11:10 FiO2 Intake & Output 10/20/23 10/21/23 10/21/23 18:59 06:59 18:59 Output Total 1800 Balance -1800 Weight 103.5 kg Output: Urine 1800 Straight 900 Other: Voiding Method Urinal Indwelling Catheter Indwelling Catheter # Bowel Movements 2 1 - Exam patient is awake, comfortable, no acute distress. Examination of the heart S1 and S2 Examination of the lungs bilateral breath sounds are heard Abdomen is soft , mild abdominal tenderness Examination lower extremity shows no significant edema LAMPS TESTER AND INSPECTOR exam grossly intact - Labs CBC & Chem 7: 10/21/23 06:30 10/21/23 06:30 Labs: Abnormal Lab Results - Last 24 Hours (Table) 10/20/23 10/20/23 10/21/23 Range/Units 16:52 19:50 06:26 WBC (3.8-10.6) k/uL RBC (4.30-5.90) m/uL Hgb (13.0-17.5) gm/dL Hct (39.0-53.0) % Sodium (137-145) mmol/L BUN (9-20) mg/dL Creatinine (0.66-1.25) mg/dL Glucose (74-99) mg/dL POC Glucose (mg/dL) 175 H 235 H 146 H (70-110) mg/dL Calcium (8.4-10.2) mg/dL Total Protein (6.3-8.2) g/dL Albumin (3.5-5.0) g/dL Lipase (23-300) U/L 10/21/23 10/21/23 10/21/23 Range/Units 06:30 06:30 11:48 WBC 12.4 H (3.8-10.6) k/uL RBC 3.41 L (4.30-5.90) m/uL Hgb 11.0 L (13.0-17.5) gm/dL Hct 33.3 L (39.0-53.0) % Sodium 136 L (137-145) mmol/L BUN 28 H (9-20) mg/dL Creatinine 1.33 H (0.66-1.25) mg/dL Glucose 125 H (74-99) mg/dL POC Glucose (mg/dL) 126 H (70-110) mg/dL Calcium 8.3 L (8.4-10.2) mg/dL Total Protein 5.0 L (6.3-8.2) g/dL Albumin 2.5 L (3.5-5.0) g/dL Lipase 322 H (23-300) U/L Assessment and Plan Assessment: 1. Acute kidney injury ATN, nonoliguric. UA shows 1+ protein and small blood, hyaline casts 5. No evidence of obstruction on CT abdomen. status post IV contrast for chest CTA on 10/18/2023 2. H/o gallstone pancreatitis status post recent intervention for biliary duct stone at [facility]. Lipase is 528. 3. Type 2 diabetes maintained on Glucophage 4. Volume depletion 5. Urine retention currently with indwelling Fisher catheter. Plan: continue with IV fluids. continue with Fisher catheter. Repeat labs in a.m. Avoid any nephrotoxic agents.
[2023-10-21 16:12] LABS: Glucose,Whole Blood 189 mg/dL (70-110)
[2023-10-21 20:14] LABS: Glucose,Whole Blood 168 mg/dL (70-110)
[2023-10-22 05:47] LABS: Glucose,Whole Blood 170 mg/dL (70-110)
[2023-10-22 07:06] LABS: HGB 10.5 gm/dL (13.0-17.5); MCHC 32.8 g/dL (31.0-37.0); MCV 97.5 fL (80.0-100.0); Mean Platelet Volume 8.1; Platelet Count 355 k/uL (150-450); RBC 3.28 m/uL (4.30-5.90); RDW 13.1 % (11.5-15.5); WBC 14.1 k/uL (3.8-10.6)
[2023-10-22 08:45] LABS: ALT 29 U/L (4-49); AST 42 U/L (17-59); African American GFR (CKD) 75 (>60 ml/min/1.73 sqM); Albumin 2.5 g/dL (3.5-5.0); Alkaline Phosphatase 96 U/L (38-126); Anion Gap 7 mmol/L; Blood Urea Nitrogen 20 mg/dL (9-20); Calcium 8.1 mg/dL (8.4-10.2); Carbon Dioxide 24 mmol/L (22-30); Chloride 105 mmol/L (98-107); Glucose 149 mg/dL (74-99); Lipase 319 U/L (23-300); Non-African American GFR(CKD) 64 (>60 ml/min/1.73 sqM); Potassium 3.8 mmol/L (3.5-5.1); Sodium 136 mmol/L (137-145); Total Bilirubin 0.7 mg/dL (0.2-1.3); Total Protein 5.1 g/dL (6.3-8.2)
[2023-10-22 11:43] LABS: Glucose,Whole Blood 135 mg/dL (70-110)
--- NOTE | 2023-10-22 12:32 | P.PN ---
Subjective patient is seen for follow-up for acute kidney injury. Currently maintained on IV fluids. Serum creatinine has improved to 1.0 from 2.58 yesterday. Serum lipase down to 319 from 812 on admission. Patient was noticed to have significant urine retention with 900 mL of urine obtained on straight catheterization 2. currently with indwelling Fisher catheter Objective - Vital Signs Vital signs: Vital Signs Temp 97.8 F 10/22/23 11:26 Pulse 61 10/22/23 11:26 Resp 16 10/22/23 11:26 BP 127/76 10/22/23 11:26 Pulse Ox 98 10/22/23 11:26 FiO2 Intake & Output 10/21/23 10/22/23 10/22/23 18:59 06:59 18:59 Intake Total 444 1540 310 Output Total 650 1400 500 Balance -206 140 -190 Weight 104 kg Intake: IV 10 Invasive Line 1 10 Intake, IV Titration 1000 300 Amount Sodium Chloride 0.9% 1, 1000 300 000 ml @ 75 mls/hr IV . [id number] [facility], [facility] Rx#:[id number] Oral 444 540 Output: Urine 650 1400 500 Other: Voiding Method Indwelling Catheter Indwelling Catheter Indwelling Catheter # Bowel Movements 1 2 - Exam patient is awake, comfortable, no acute distress. Examination of the heart S1 and S2 Examination of the lungs bilateral breath sounds are heard Abdomen is soft , mild abdominal tenderness Examination lower extremity shows no significant edema MOVE COORDINATOR exam grossly intact - Labs CBC & Chem 7: 10/22/23 06:53 10/22/23 06:53 Labs: Abnormal Lab Results - Last 24 Hours (Table) 10/21/23 10/21/23 10/22/23 Range/Units 16:05 20:13 05:46 WBC (3.8-10.6) k/uL RBC (4.30-5.90) m/uL Hgb (13.0-17.5) gm/dL Hct (39.0-53.0) % Sodium (137-145) mmol/L Glucose (74-99) mg/dL POC Glucose (mg/dL) 189 H 168 H 170 H (70-110) mg/dL Calcium (8.4-10.2) mg/dL Total Protein (6.3-8.2) g/dL Albumin (3.5-5.0) g/dL Lipase (23-300) U/L 10/22/23 10/22/23 10/22/23 Range/Units 06:53 06:53 11:42 WBC 14.1 H (3.8-10.6) k/uL RBC 3.28 L (4.30-5.90) m/uL Hgb 10.5 L (13.0-17.5) gm/dL Hct 32.0 L (39.0-53.0) % Sodium 136 L (137-145) mmol/L Glucose 149 H (74-99) mg/dL POC Glucose (mg/dL) 135 H (70-110) mg/dL Calcium 8.1 L (8.4-10.2) mg/dL Total Protein 5.1 L (6.3-8.2) g/dL Albumin 2.5 L (3.5-5.0) g/dL Lipase 319 H (23-300) U/L Assessment and Plan Assessment: 1. Acute kidney injury ATN, nonoliguric. UA shows 1+ protein and small blood, hyaline casts 5. No evidence of obstruction on CT abdomen. status post IV contrast for chest CTA on 10/18/2023 2. H/o gallstone pancreatitis status post recent intervention for biliary duct stone at [facility]. Lipase is 528. 3. Type 2 diabetes maintained on Glucophage 4. Volume depletion 5. Urine retention currently with indwelling Fisher catheter. Plan: Discontinue IV fluids continue with Fisher catheter. Repeat labs in a.m. Avoid any nephrotoxic agents.
--- NOTE | 2023-10-22 13:47 | P.PN ---
Subjective Progress Note Date: 10/22/23 CHIEF COMPLAINT: Anemia and GI bleed HISTORY OF PRESENT ILLNESS: The patient is a 78-year-old male being seen for rectal bleeding, anemia, pancreatitis. He denies any abdominal pain today. He is on clear liquids. In fact denies no blood in his stools. He is eager to eat normal foods. ROS: No reports of nausea and vomiting. No fevers or chills. No new chest pain. No productive sputum PHYSICAL EXAM: VITAL SIGNS: Reviewed CONSTITUTIONAL: Well developed and in no acute distress. EYES: Conjuctivae without sclera icterus. Extraocular movements grossly intact. HEAD, EARS, NOSE, THROAT: Moist buccal mucosa. Head is atraumatic, normocephalic. Hears conversational speech. No nasal drainage. RESPIRATORY: Non-labored respirations and equal bilateral excursions. CARDIOVASCULAR: Palpable 2+ radial pulses. ABDOMEN: Obese. Nontender. MUSCULOSKELETAL: No gross deformity of the lower extremities noted. No clubbing. No cyanosis. SKIN: Good skin turgor. Well perfused. NEUROLOGIC: Cranial nerves II through XII grossly intact. No focal or lateralizing signs. PSYCH: Appropriate affect. Alert and oriented to person, place and time. CLINICAL LABS: Reviewed. Hemoglobin 11.0 down to 10.5, anemia. Lipase down from 802 down to 319, but still elevated. Creatinine down 2.58 to normal, 1.08. ASSESSMENT: 1. Anemia with history of bright blood blood per rectum 2. Pancreatitis with elevated lipase 3. Acute renal insufficiency, acute kidney injury PLAN: 1. Clinically, he is tolerating clear liquids and may advance diet to full liquids. 2. Monitor hemoglobin including bright red blood per rectum 3. Should he have moderate decline in hemoglobin with signs of bleeding, may benefit from colonoscopy. Objective - Vital Signs Vital signs: Vital Signs Temp 97.8 F 10/22/23 11:26 Pulse 61 10/22/23 11:26 Resp 16 10/22/23 11:26 BP 127/76 10/22/23 11:26 Pulse Ox 98 10/22/23 11:26 FiO2 Intake & Output 10/21/23 10/22/23 10/22/23 18:59 06:59 18:59 Intake Total 444 1540 430 Output Total 650 1400 500 Balance -206 140 -70 Weight 104 kg Intake: IV 10 Invasive Line 1 10 Intake, IV Titration 1000 300 Amount Sodium Chloride 0.9% 1, 1000 300 000 ml @ 75 mls/hr IV . [id number] [facility] Rx#:[id number] Oral 444 540 120 Output: Urine 650 1400 500 Other: Voiding Method Indwelling Catheter Indwelling Catheter Indwelling Catheter # Bowel Movements 1 2 - Labs CBC & Chem 7: 10/22/23 06:53 10/22/23 06:53 Labs: Abnormal Lab Results - Last 24 Hours (Table) 10/21/23 10/21/23 10/22/23 Range/Units 16:05 20:13 05:46 WBC (3.8-10.6) k/uL RBC (4.30-5.90) m/uL Hgb (13.0-17.5) gm/dL Hct (39.0-53.0) % Sodium (137-145) mmol/L Glucose (74-99) mg/dL POC Glucose (mg/dL) 189 H 168 H 170 H (70-110) mg/dL Calcium (8.4-10.2) mg/dL Total Protein (6.3-8.2) g/dL Albumin (3.5-5.0) g/dL Lipase (23-300) U/L 10/22/23 10/22/23 10/22/23 Range/Units 06:53 06:53 11:42 WBC 14.1 H (3.8-10.6) k/uL RBC 3.28 L (4.30-5.90) m/uL Hgb 10.5 L (13.0-17.5) gm/dL Hct 32.0 L (39.0-53.0) % Sodium 136 L (137-145) mmol/L Glucose 149 H (74-99) mg/dL POC Glucose (mg/dL) 135 H (70-110) mg/dL Calcium 8.1 L (8.4-10.2) mg/dL Total Protein 5.1 L (6.3-8.2) g/dL Albumin 2.5 L (3.5-5.0) g/dL Lipase 319 H (23-300) U/L
[2023-10-22 16:11] LABS: Glucose,Whole Blood 158 mg/dL (70-110)
[2023-10-22 20:27] LABS: Glucose,Whole Blood 190 mg/dL (70-110)
[2023-10-23 06:12] LABS: Glucose,Whole Blood 161 mg/dL (70-110)
[2023-10-23 10:21] LABS: Basophils % (A) 0 %; Eosinophils # (A) 0.2 k/uL (0-0.7); Eosinophils % (A) 1 %; HCT 31.9 % (39.0-53.0); HGB 10.4 gm/dL (13.0-17.5); Hypochromasia Slight; Lymphocytes # (A) 0.8 k/uL (1.0-4.8); Lymphocytes % (A) 6 %; MCH 31.5 pg (25.0-35.0); MCHC 32.6 g/dL (31.0-37.0); MCV 96.6 fL (80.0-100.0); Mean Platelet Volume 7.3; Monocytes # (A) 0.7 k/uL (0-1.0); Monocytes % (A) 5 %; Neutrophils # (A) 11.7 k/uL (1.3-7.7); Neutrophils % (A) 87 %; Platelet Count 392 k/uL (150-450); RDW 12.8 % (11.5-15.5); WBC 13.5 k/uL (3.8-10.6)
[2023-10-23 10:38] LABS: ALT 31 U/L (4-49); AST 40 U/L (17-59); African American GFR (CKD) 80 (>60 ml/min/1.73 sqM); Albumin 2.5 g/dL (3.5-5.0); Alkaline Phosphatase 86 U/L (38-126); Blood Urea Nitrogen 16 mg/dL (9-20); C Reactive Protein 8.5 mg/dL (<1.0); Calcium 8.3 mg/dL (8.4-10.2); Carbon Dioxide 23 mmol/L (22-30); Chloride 106 mmol/L (98-107); Glucose 146 mg/dL (74-99); Lipase 304 U/L (23-300); Non-African American GFR(CKD) 69 (>60 ml/min/1.73 sqM); Potassium 3.5 mmol/L (3.5-5.1); Total Bilirubin 0.5 mg/dL (0.2-1.3); Total Protein 5.1 g/dL (6.3-8.2)
[2023-10-23 10:43] LABS: Anion Gap 10 mmol/L; Sodium 139 mmol/L (137-145)
[2023-10-23 10:49] LABS: Prothrombin Time 11.2 sec (10.0-12.5)
[2023-10-23 11:57] LABS: Glucose,Whole Blood 125 mg/dL (70-110)
--- NOTE | 2023-10-23 12:13 | P.PN ---
Subjective patient is seen for follow-up for acute kidney injury. Renal function has improved significantly with IV hydration. IV fluids discontinued yesterday. Serum lipase down to 304 from 812 on admission. Patient was noticed to have significant urine retention with 900 mL of urine obtained on straight catheterization 2. currently with indwelling Fisher catheter Objective - Vital Signs Vital signs: Vital Signs Temp 97.5 F L 10/23/23 08:25 Pulse 69 10/23/23 11:59 Resp 16 10/23/23 11:59 BP 130/76 10/23/23 11:59 Pulse Ox 94 L 10/23/23 11:59 FiO2 Intake & Output 10/22/23 10/23/23 10/23/23 18:59 06:59 18:59 Intake Total 662 20 10 Output Total 500 900 Balance 162 -880 10 Weight 99.9 kg Intake: IV 20 20 10 Invasive Line 1 20 20 10 Intake, IV Titration 300 Amount Sodium Chloride 0.9% 1, 300 000 ml @ 75 mls/hr IV . [id number] [facility] Rx#:[id number] Oral 342 Output: Urine 500 900 Other: Voiding Method Indwelling Catheter Indwelling Catheter Indwelling Catheter # Bowel Movements 1 1 - Exam patient is awake, comfortable, no acute distress. Examination of the heart S1 and S2 Examination of the lungs bilateral breath sounds are heard Abdomen is soft , mild abdominal tenderness Examination lower extremity shows 1+ edema [employer] exam grossly intact - Labs CBC & Chem 7: 10/23/23 10:04 10/23/23 10:04 Labs: Abnormal Lab Results - Last 24 Hours (Table) 10/22/23 10/22/23 10/23/23 Range/Units 16:10 20:25 06:11 WBC (3.8-10.6) k/uL RBC (4.30-5.90) m/uL Hgb (13.0-17.5) gm/dL Hct (39.0-53.0) % Neutrophils # (1.3-7.7) k/uL Lymphocytes # (1.0-4.8) k/uL Glucose (74-99) mg/dL POC Glucose (mg/dL) 158 H 190 H 161 H (70-110) mg/dL Calcium (8.4-10.2) mg/dL C-Reactive Protein (<1.0) mg/dL Total Protein (6.3-8.2) g/dL Albumin (3.5-5.0) g/dL Lipase (23-300) U/L 10/23/23 10/23/23 10/23/23 Range/Units 10:04 10:04 11:54 WBC 13.5 H (3.8-10.6) k/uL RBC 3.30 L (4.30-5.90) m/uL Hgb 10.4 L (13.0-17.5) gm/dL Hct 31.9 L (39.0-53.0) % Neutrophils # 11.7 H (1.3-7.7) k/uL Lymphocytes # 0.8 L (1.0-4.8) k/uL Glucose 146 H (74-99) mg/dL POC Glucose (mg/dL) 125 H (70-110) mg/dL Calcium 8.3 L (8.4-10.2) mg/dL C-Reactive Protein 8.5 H (<1.0) mg/dL Total Protein 5.1 L (6.3-8.2) g/dL Albumin 2.5 L (3.5-5.0) g/dL Lipase 304 H (23-300) U/L Assessment and Plan Assessment: 1. Acute kidney injury ATN, nonoliguric. UA shows 1+ protein and small blood, hyaline casts 5. No evidence of obstruction on CT abdomen. status post IV contrast for chest CTA on 10/18/2023 2. H/o gallstone pancreatitis status post recent intervention for biliary duct stone at [facility]. Lipase is 528. 3. Type 2 diabetes maintained on Glucophage 4. Mild volume overload 5. Urine retention currently with indwelling Fisher catheter. Plan: Continue off of IV fluids IV Lasix x 1 Replace potassium continue with Fisher catheter. Repeat labs in a.m. Avoid any nephrotoxic agents.
[2023-10-23] MEDS ORDERED: SODIUM CHLORIDE 0.9% 1,000 ML IV SCH (12:15)
[2023-10-23] MEDS: FUROSEMIDE 10 MG/ML 2 ML VIAL IV ONE (13:41)
[2023-10-23] MEDS: POTASSIUM CHLORIDE ER 20 MEQ TAB.ER PO STA (13:41)
[2023-10-23 14:14] LABS: Appearance,Urine Cloudy (Clear); Bacteria,Urine Occasional /hpf; Bilirubin,Urine Negative (Negative); Blood,Urine Moderate (Negative); Color,Urine Yellow; Glucose,Urine (UA) Negative (Negative); Ketones,Urine Negative (Negative); Leukocyte Esterase,Urine Large (Negative); Nitrite,Urine Positive (Negative); PH, Urine 7.5 (5.0-8.0); Protein,Urine 2+ (Negative); RBC,Urine >182 /hpf (0-5); Specific Gravity,Urine 1.016 (1.001-1.035); Triple Phosphate Crystal,Urine Occasional /hpf; Urobilinogen,Urine <2.0 mg/dL (<2.0); WBC,Urine 32 /hpf (0-5)
--- NOTE | 2023-10-23 15:24 | P.PN ---
Subjective Progress Note Date: 10/22/23 Interval History: Elevated troponin with pancreatitis on CT scan. The patient is an 78-year-old white male who was recently discharged from [facility]. The patient complained of significant shortness of breath. Elevation of creatinine was noted this morning. Will ask nephrology to see the patient for acute renal failure. CT scan did show mild pancreatitis enzymes are decreasing from a pancreatic perspective, however there was slight bump in his liver function tests. Will ask GI to comment. He states some lower umbilical pain. But some distention. No appetite stated. Liver enzymes are normalizing. Abdominal ultrasound does not show any type of calcification or residual stone. Patient developed acute anemia. General surgery has now been consulted. 10/22/2023--patient vital stable, remained afebrile, symptoms improving. Hemoglobin stable, general surgery following, likely hemorrhoidal bleed, general surgery following, further recs regarding colonoscopy pending. Acute kidney i njury improving, indwelling Fisher's catheter in place for urinary retention, nephrology following. LFTs improved, lipase trending down, will continue to monitor. Cardiology following for NSTEMI, patient has been off heparin drip, cardiology recommending medical management. Echocardiogram done. Assessment and plan: Acute pancreatitis: Recent biliary drainage tube placement at [facility] for pancreatitis: NSTEMI: Acute kidney injury CAD status post RCA stent in 2007 Hypertension Hyperlipidemia Diabetes mellitus Plan: Lipase is trending down, LFTs improved, ultrasound abdomen and CT abdomen done--biliary tube in place, CBD dilation secondary to postcholecystectomy, monitor CMP and lipase Monitor hemoglobin, general surgery following for anemia, suspect hemorrhoidal bleed, recommended to monitor for now Acute kidney injury secondary to hypovolemia and urinary retention, status post Fisher's catheter in place, nephrology following, IV fluids. Avoid nephrotoxin Continue home meds DVT prophylaxis: Subcutaneous heparin PHYSICAL EXAMINATION: GENERAL: The patient is A&O x3, NAD HEENT: EOMI, Sclerae anicteric, Moist Mucous membranes Neck: Supple, Non tender, No JVD PULMONARY: Equal breath souds B/L, No wheezing, No crackles. CARDIOVASCULAR: S1, S2 present. No murmurs, rubs, or gallops. ABDOMEN: Soft, nontender, nondistended, normoactive bowel sounds. No guarding or rebound tenderness. MUSCULOSKELETAL: No edema, No cyanosis. No clubbing. Normal ROM. Intact peripheral pulses. EXTREMITIES: No cyanosis, clubbing, or pedal edema. NEUROLOGICAL: CN 2-12 grossly intact. No FND Skin: No Rash REVIEW OF SYSTEMS: CONSTITUTIONAL: No fever or chills. CARDIOVASCULAR: No chest pain, palpitations or syncope. PULMONARY: No shortness of breath, no cough, sore throat. GASTROINTESTINAL: No nausea, vomiting, diarrhea, abdominal pain. : No Dysuria, urgency, frequency. Extremities: No edema. NEUROLOGICAL: No headaches, no weakness, or numbness Dictation was produced using [employer] dictation software. please excuse any grammatical, word or spelling errors. Objective - Vital Signs Vital signs: Vital Signs Temp 97.5 F L 10/23/23 08:25 Pulse 76 10/23/23 08:25 Resp 16 10/23/23 08:25 BP 123/69 10/23/23 08:25 Pulse Ox 96 10/23/23 08:25 FiO2 Intake & Output 10/22/23 10/23/23 10/23/23 18:59 06:59 18:59 Intake Total 662 20 10 Output Total 500 900 Balance 162 -880 10 Weight 99.9 kg Intake: IV 20 20 10 Invasive Line 1 20 20 10 Intake, IV Titration 300 Amount Sodium Chloride 0.9% 1, 300 000 ml @ 75 mls/hr IV . [id number] [facility] Rx#:[id number] Oral 342 Output: Urine 500 900 Other: Voiding Method Indwelling Catheter Indwelling Catheter # Bowel Movements 1 1 - Labs CBC & Chem 7: 10/23/23 10:04 10/23/23 10:04 Labs: Abnormal Lab Results - Last 24 Hours (Table) 10/22/23 10/22/23 10/22/23 Range/Units 11:42 16:10 20:25 POC Glucose (mg/dL) 135 H 158 H 190 H (70-110) mg/dL 10/23/23 Range/Units 06:11 POC Glucose (mg/dL) 161 H (70-110) mg/dL
--- NOTE | 2023-10-23 15:28 | P.PN ---
Subjective Progress Note Date: 10/23/23 Interval History: Elevated troponin with pancreatitis on CT scan. The patient is an 78-year-old white male who was recently discharged from [facility]. The patient complained of significant shortness of breath. Elevation of creatinine was noted this morning. Will ask nephrology to see the patient for acute renal failure. CT scan did show mild pancreatitis enzymes are decreasing from a pancreatic perspective, however there was slight bump in his liver function tests. Will ask GI to comment. He states some lower umbilical pain. But some distention. No appetite stated. Liver enzymes are normalizing. Abdominal ultrasound does not show any type of calcification or residual stone. Patient developed acute anemia. General surgery has now been consulted. 10/22/2023--patient vital stable, remained afebrile, symptoms improving. Hemoglobin stable, general surgery following, likely hemorrhoidal bleed, general surgery following, further recs regarding colonoscopy pending. Acute kidney i njury improving, indwelling Fisher's catheter in place for urinary retention, nephrology following. LFTs improved, lipase trending down, will continue to monitor. Cardiology following for NSTEMI, patient has been off heparin drip, cardiology recommending medical management. Echocardiogram done. 10/23/2023--patient was seen and examined today. Remained afebrile. Denied any abdominal pain nausea or vomiting. noted to have hazy urine in the Fisher's bag, UA positive, started on Rocephin. Lipase still elevated but trending down. CMP unremarkable. WBCs trending down. Hemoglobin stable. Nephrology following--recommended to keep off of IV fluids, IV Lasix X1. Maintain Fisher's catheter. Assessment and plan: Acute pancreatitis: Recent biliary drainage tube placement at [facility] for pancreatitis: NSTEMI: Acute kidney injury CAD status post RCA stent in 2007 Hypertension Hyperlipidemia Diabetes mellitus Plan: Lipase is trending down, LFTs improved, ultrasound abdomen and CT abdomen done--biliary tube in place, CBD dilation secondary to postcholecystectomy, monitor CMP and lipase Monitor hemoglobin, general surgery following for anemia, suspect hemorrhoidal bleed, recommended to monitor for now Acute kidney injury secondary to hypovolemia and urinary retention, status post Fisher's catheter in place, nephrology following, Avoid nephrotoxin Continue home meds DVT prophylaxis: Subcutaneous heparin PHYSICAL EXAMINATION: GENERAL: The patient is A&O x3, NAD HEENT: EOMI, Sclerae anicteric, Moist Mucous membranes Neck: Supple, Non tender, No JVD PULMONARY: Equal breath souds B/L, No wheezing, No crackles. CARDIOVASCULAR: S1, S2 present. No murmurs, rubs, or gallops. ABDOMEN: Soft, nontender, nondistended, normoactive bowel sounds. No guarding or rebound tenderness. MUSCULOSKELETAL: No edema, No cyanosis. No clubbing. Normal ROM. Intact peripheral pulses. EXTREMITIES: No cyanosis, clubbing, or pedal edema. NEUROLOGICAL: CN 2-12 grossly intact. No FND Skin: No Rash REVIEW OF SYSTEMS: CONSTITUTIONAL: No fever or chills. CARDIOVASCULAR: No chest pain, palpitations or syncope. PULMONARY: No shortness of breath, no cough, sore throat. GASTROINTESTINAL: No nausea, vomiting, diarrhea, abdominal pain. : No Dysuria, urgency, frequency. Extremities: No edema. NEUROLOGICAL: No headaches, no weakness, or numbness Dictation was produced using [employer] dictation software. please excuse any grammatical, word or spelling errors. Objective - Vital Signs Vital signs: Vital Signs Temp 97.5 F L 10/23/23 08:25 Pulse 69 10/23/23 14:00 Resp 16 10/23/23 14:00 BP 130/76 10/23/23 11:59 Pulse Ox 94 L 10/23/23 11:59 FiO2 Intake & Output 10/22/23 10/23/23 10/23/23 18:59 06:59 18:59 Intake Total 662 20 20 Output Total 500 900 500 Balance 162 -880 -480 Weight 99.9 kg Intake: IV 20 20 20 Invasive Line 1 20 20 20 Intake, IV Titration 300 Amount Sodium Chloride 0.9% 1, 300 000 ml @ 75 mls/hr IV . [id number] [facility] Rx#:[id number] Oral 342 Output: Urine 500 900 500 Other: Voiding Method Indwelling Catheter Indwelling Catheter Indwelling Catheter # Bowel Movements 1 1 - Labs CBC & Chem 7: 10/23/23 10:04 10/23/23 10:04 Labs: Abnormal Lab Results - Last 24 Hours (Table) 10/22/23 10/22/23 10/23/23 Range/Units 16:10 20:25 06:11 WBC (3.8-10.6) k/uL RBC (4.30-5.90) m/uL Hgb (13.0-17.5) gm/dL Hct (39.0-53.0) % Neutrophils # (1.3-7.7) k/uL Lymphocytes # (1.0-4.8) k/uL Glucose (74-99) mg/dL POC Glucose (mg/dL) 158 H 190 H 161 H (70-110) mg/dL Calcium (8.4-10.2) mg/dL C-Reactive Protein (<1.0) mg/dL Total Protein (6.3-8.2) g/dL Albumin (3.5-5.0) g/dL Lipase (23-300) U/L Urine Protein (Negative) Urine Blood (Negative) Ur Leukocyte Esterase (Negative) Urine RBC (0-5) /hpf Urine WBC (0-5) /hpf Triple Phos Crystals (None) /hpf Urine Bacteria (None) /hpf 10/23/23 10/23/23 10/23/23 Range/Units 10:04 10:04 11:54 WBC 13.5 H (3.8-10.6) k/uL RBC 3.30 L (4.30-5.90) m/uL Hgb 10.4 L (13.0-17.5) gm/dL Hct 31.9 L (39.0-53.0) % Neutrophils # 11.7 H (1.3-7.7) k/uL Lymphocytes # 0.8 L (1.0-4.8) k/uL Glucose 146 H (74-99) mg/dL POC Glucose (mg/dL) 125 H (70-110) mg/dL Calcium 8.3 L (8.4-10.2) mg/dL C-Reactive Protein 8.5 H (<1.0) mg/dL Total Protein 5.1 L (6.3-8.2) g/dL Albumin 2.5 L (3.5-5.0) g/dL Lipase 304 H (23-300) U/L Urine Protein (Negative) Urine Blood (Negative) Ur Leukocyte Esterase (Negative) Urine RBC (0-5) /hpf Urine WBC (0-5) /hpf Triple Phos Crystals (None) /hpf Urine Bacteria (None) /hpf 10/23/23 Range/Units 13:45 WBC (3.8-10.6) k/uL RBC (4.30-5.90) m/uL Hgb (13.0-17.5) gm/dL Hct (39.0-53.0) % Neutrophils # (1.3-7.7) k/uL Lymphocytes # (1.0-4.8) k/uL Glucose (74-99) mg/dL POC Glucose (mg/dL) (70-110) mg/dL Calcium (8.4-10.2) mg/dL C-Reactive Protein (<1.0) mg/dL Total Protein (6.3-8.2) g/dL Albumin (3.5-5.0) g/dL Lipase (23-300) U/L Urine Protein 2+ H (Negative) Urine Blood Moderate H (Negative) Ur Leukocyte Esterase Large H (Negative) Urine RBC >182 H (0-5) /hpf Urine WBC 32 H (0-5) /hpf Triple Phos Crystals Occasional H (None) /hpf Urine Bacteria Occasional H (None) /hpf
--- NOTE | 2023-10-23 16:14 | P.PN ---
Subjective Progress Note Date: 10/23/23 CHIEF COMPLAINT: Anemia and GI bleed HISTORY OF PRESENT ILLNESS: The patient is a 78-year-old male being seen for rectal bleeding, anemia, pancreatitis. Family is at bedside. Patient and family reports that he had abdominal pain after eating strawberry ice cream. Pain is not moderate. ROS: No reports of nausea and vomiting. No fevers or chills. No new chest pain. No productive sputum PHYSICAL EXAM: VITAL SIGNS: Reviewed CONSTITUTIONAL: Well developed and in no acute distress. EYES: Conjuctivae without sclera icterus. Extraocular movements grossly intact. HEAD, EARS, NOSE, THROAT: Moist buccal mucosa. Head is atraumatic, normocephalic. Hears conversational speech. No nasal drainage. RESPIRATORY: Non-labored respirations and equal bilateral excursions. CARDIOVASCULAR: Palpable 2+ radial pulses. ABDOMEN: Obese. Nontender. MUSCULOSKELETAL: No gross deformity of the lower extremities noted. No clubbing. No cyanosis. SKIN: Good skin turgor. Well perfused. NEUROLOGIC: Cranial nerves II through XII grossly intact. No focal or lateralizing signs. PSYCH: Appropriate affect. Alert and oriented to person, place and time. CLINICAL LABS: Reviewed. WBC elevated over 13,000, leukocytosis. Hemoglobin stable 10.4-10.5 in 24 to 48 hours. ASSESSMENT: 1. Anemia with history of bright blood blood per rectum 2. Pancreatitis with elevated lipase 3. Acute renal insufficiency, acute kidney injury 4. Leukocytosis PLAN: 1. Patient and family reports abdominal pain worsened with ice cream. Will adjust diet to avoid dairy products. 2. Hemoglobin stable. At this time we will hold on endoscopies. Objective - Vital Signs Vital signs: Vital Signs Temp 97.8 F 10/23/23 15:23 Pulse 78 10/23/23 15:23 Resp 16 10/23/23 15:23 BP 138/77 10/23/23 15:23 Pulse Ox 97 10/23/23 15:23 FiO2 Intake & Output 10/22/23 10/23/23 10/23/23 18:59 06:59 18:59 Intake Total 662 20 20 Output Total 088 872 7586 Balance 162 -880 -1330 Weight 99.9 kg Intake: IV 20 20 20 Invasive Line 1 20 20 20 Intake, IV Titration 300 Amount Sodium Chloride 0.9% 1, 300 000 ml @ 75 mls/hr IV . [id number] [facility] Rx#:[id number] Oral 342 Output: Urine 250 837 2498 Other: Voiding Method Indwelling Catheter Indwelling Catheter Indwelling Catheter # Bowel Movements 1 1 - Labs CBC & Chem 7: 10/23/23 10:04 10/23/23 10:04 Labs: Abnormal Lab Results - Last 24 Hours (Table) 10/22/23 10/22/23 10/23/23 Range/Units 16:10 20:25 06:11 WBC (3.8-10.6) k/uL RBC (4.30-5.90) m/uL Hgb (13.0-17.5) gm/dL Hct (39.0-53.0) % Neutrophils # (1.3-7.7) k/uL Lymphocytes # (1.0-4.8) k/uL Glucose (74-99) mg/dL POC Glucose (mg/dL) 158 H 190 H 161 H (70-110) mg/dL Calcium (8.4-10.2) mg/dL C-Reactive Protein (<1.0) mg/dL Total Protein (6.3-8.2) g/dL Albumin (3.5-5.0) g/dL Lipase (23-300) U/L Urine Protein (Negative) Urine Blood (Negative) Ur Leukocyte Esterase (Negative) Urine RBC (0-5) /hpf Urine WBC (0-5) /hpf Triple Phos Crystals (None) /hpf Urine Bacteria (None) /hpf 10/23/23 10/23/23 10/23/23 Range/Units 10:04 10:04 11:54 WBC 13.5 H (3.8-10.6) k/uL RBC 3.30 L (4.30-5.90) m/uL Hgb 10.4 L (13.0-17.5) gm/dL Hct 31.9 L (39.0-53.0) % Neutrophils # 11.7 H (1.3-7.7) k/uL Lymphocytes # 0.8 L (1.0-4.8) k/uL Glucose 146 H (74-99) mg/dL POC Glucose (mg/dL) 125 H (70-110) mg/dL Calcium 8.3 L (8.4-10.2) mg/dL C-Reactive Protein 8.5 H (<1.0) mg/dL Total Protein 5.1 L (6.3-8.2) g/dL Albumin 2.5 L (3.5-5.0) g/dL Lipase 304 H (23-300) U/L Urine Protein (Negative) Urine Blood (Negative) Ur Leukocyte Esterase (Negative) Urine RBC (0-5) /hpf Urine WBC (0-5) /hpf Triple Phos Crystals (None) /hpf Urine Bacteria (None) /hpf 10/23/23 Range/Units 13:45 WBC (3.8-10.6) k/uL RBC (4.30-5.90) m/uL Hgb (13.0-17.5) gm/dL Hct (39.0-53.0) % Neutrophils # (1.3-7.7) k/uL Lymphocytes # (1.0-4.8) k/uL Glucose (74-99) mg/dL POC Glucose (mg/dL) (70-110) mg/dL Calcium (8.4-10.2) mg/dL C-Reactive Protein (<1.0) mg/dL Total Protein (6.3-8.2) g/dL Albumin (3.5-5.0) g/dL Lipase (23-300) U/L Urine Protein 2+ H (Negative) Urine Blood Moderate H (Negative) Ur Leukocyte Esterase Large H (Negative) Urine RBC >182 H (0-5) /hpf Urine WBC 32 H (0-5) /hpf Triple Phos Crystals Occasional H (None) /hpf Urine Bacteria Occasional H (None) /hpf
[2023-10-23 16:55] LABS: Glucose,Whole Blood 144 mg/dL (70-110)
[2023-10-23 20:35] LABS: Glucose,Whole Blood 169 mg/dL (70-110)
[2023-10-23] MEDS: ATORVASTATIN 40 MG TAB PO SCH (20:38)
[2023-10-24 06:28] LABS: Glucose,Whole Blood 136 mg/dL (70-110)
[2023-10-24 07:04] LABS: Basophils % (A) 0 %; Eosinophils # (A) 0.2 k/uL (0-0.7); Eosinophils % (A) 1 %; HCT 32.6 % (39.0-53.0); HGB 10.7 gm/dL (13.0-17.5); Lymphocytes # (A) 1.2 k/uL (1.0-4.8); Lymphocytes % (A) 11 %; MCH 31.8 pg (25.0-35.0); MCHC 32.9 g/dL (31.0-37.0); MCV 96.5 fL (80.0-100.0); Mean Platelet Volume 8.6; Monocytes # (A) 0.6 k/uL (0-1.0); Monocytes % (A) 5 %; Neutrophils # (A) 9.5 k/uL (1.3-7.7); Neutrophils % (A) 82 %; Platelet Count 375 k/uL (150-450); RBC 3.38 m/uL (4.30-5.90); WBC 11.6 k/uL (3.8-10.6)
[2023-10-24 07:19] LABS: African American GFR (CKD) 80 (>60 ml/min/1.73 sqM); Anion Gap 4 mmol/L; Blood Urea Nitrogen 14 mg/dL (9-20); Calcium 8.4 mg/dL (8.4-10.2); Carbon Dioxide 28 mmol/L (22-30); Chloride 107 mmol/L (98-107); Glucose 135 mg/dL (74-99); Non-African American GFR(CKD) 69 (>60 ml/min/1.73 sqM); Sodium 139 mmol/L (137-145)
--- NOTE | 2023-10-24 08:40 | P.PN ---
Subjective Progress Note Date: 10/24/23 This is an 78-year-old male with a past medical history of CAD, diabetes, hypertension, hyperlipidemia, and recent diagnosis of pancreatitis. Patient was apparently recently discharged from [facility] and had some weakness at home and difficulty breathing, so he presented to the emergency department for evaluation. Patient reports he did not feel ready to go home after recent hospitalization. Patient may have had a questionable low pulse ox reading at home. 10/20/2023 Patient seen and evaluated sitting in chair at side of bed this morning. Yesterday patient reported increasing abdominal pain and he was started on a clear liquid diet. Patient reports pain is somewhat improved this morning. Amylase and lipase continue to trend down. Yesterday creatinine was elevated and nephrology was consulted. Creatinine down to 1.95 today. Liver enzymes also increased yesterday, are trending down today. 10/24/2023 Patient seen and evaluated laying in bed this morning. His diet was advanced over the weekend and patient was unable to tolerate ice cream. He is now on a full liquid diet with no lactose. UTI diagnosed over the weekend and patient started on Rocephin. Objective - Vital Signs Vital signs: Vital Signs Temp 97.7 F 10/24/23 08:16 Pulse 98 10/24/23 08:16 Resp 16 10/24/23 08:16 BP 142/78 10/24/23 08:16 Pulse Ox 96 10/24/23 08:16 FiO2 Intake & Output 10/23/23 10/24/23 10/24/23 18:59 06:59 18:59 Intake Total 20 260 Output Total 1350 700 Balance -1330 -440 Weight 95.8 kg Intake: IV 20 20 Invasive Line 1 20 20 Oral 240 Output: Urine 1350 700 Other: Voiding Method Indwelling Catheter Indwelling Catheter - Constitutional General appearance: Present: cooperative, no acute distress - EENT Eyes: Present: PERRLA - Neck Neck: Present: normal ROM. Absent: lymphadenopathy, rigidity - Respiratory Respiratory: bilateral: CTA - Cardiovascular Rhythm: regular Heart sounds: normal: S1, S2 - Gastrointestinal General gastrointestinal: Present: soft. Absent: tenderness - Integumentary Integumentary: Present: normal, normal turgor - Musculoskeletal Musculoskeletal: Present: generalized weakness - Psychiatric Psychiatric: Present: A&O x's 3 - Labs CBC & Chem 7: 10/24/23 06:33 09/09/24 06:33 Labs: Abnormal Lab Results - Last 24 Hours (Table) 10/23/23 10/23/23 10/23/23 Range/Units 10:04 10:04 11:54 WBC 13.5 H (3.8-10.6) k/uL RBC 3.30 L (4.30-5.90) m/uL Hgb 10.4 L (13.0-17.5) gm/dL Hct 31.9 L (39.0-53.0) % Neutrophils # 11.7 H (1.3-7.7) k/uL Lymphocytes # 0.8 L (1.0-4.8) k/uL Glucose 146 H (74-99) mg/dL POC Glucose (mg/dL) 125 H (70-110) mg/dL Calcium 8.3 L (8.4-10.2) mg/dL C-Reactive Protein 8.5 H (<1.0) mg/dL Total Protein 5.1 L (6.3-8.2) g/dL Albumin 2.5 L (3.5-5.0) g/dL Lipase 304 H (23-300) U/L Urine Protein (Negative) Urine Blood (Negative) Ur Leukocyte Esterase (Negative) Urine RBC (0-5) /hpf Urine WBC (0-5) /hpf Triple Phos Crystals (None) /hpf Urine Bacteria (None) /hpf 10/23/23 10/23/23 10/23/23 Range/Units 13:45 16:53 20:34 WBC (3.8-10.6) k/uL RBC (4.30-5.90) m/uL Hgb (13.0-17.5) gm/dL Hct (39.0-53.0) % Neutrophils # (1.3-7.7) k/uL Lymphocytes # (1.0-4.8) k/uL Glucose (74-99) mg/dL POC Glucose (mg/dL) 144 H 169 H (70-110) mg/dL Calcium (8.4-10.2) mg/dL C-Reactive Protein (<1.0) mg/dL Total Protein (6.3-8.2) g/dL Albumin (3.5-5.0) g/dL Lipase (23-300) U/L Urine Protein 2+ H (Negative) Urine Blood Moderate H (Negative) Ur Leukocyte Esterase Large H (Negative) Urine RBC >182 H (0-5) /hpf Urine WBC 32 H (0-5) /hpf Triple Phos Crystals Occasional H (None) /hpf Urine Bacteria Occasional H (None) /hpf 10/24/23 10/24/23 10/24/23 Range/Units 06:26 06:33 06:33 WBC 11.6 H (3.8-10.6) k/uL RBC 3.38 L (4.30-5.90) m/uL Hgb 10.7 L (13.0-17.5) gm/dL Hct 32.6 L (39.0-53.0) % Neutrophils # 9.5 H (1.3-7.7) k/uL Lymphocytes # (1.0-4.8) k/uL Glucose 135 H (74-99) mg/dL POC Glucose (mg/dL) 136 H (70-110) mg/dL Calcium (8.4-10.2) mg/dL C-Reactive Protein (<1.0) mg/dL Total Protein (6.3-8.2) g/dL Albumin (3.5-5.0) g/dL Lipase (23-300) U/L Urine Protein (Negative) Urine Blood (Negative) Ur Leukocyte Esterase (Negative) Urine RBC (0-5) /hpf Urine WBC (0-5) /hpf Triple Phos Crystals (None) /hpf Urine Bacteria (None) /hpf Assessment and Plan (1) Anxiety Current Visit: Yes Status: Acute Code(s): F41.9 - ANXIETY DISORDER, UNSPECIFIED SNOMED Code(s): 60318628 (2) NSTEMI (non-ST elevated myocardial infarction) Current Visit: Yes Status: Acute Code(s): I21.4 - NON-ST ELEVATION (NSTEMI) MYOCARDIAL INFARCTION SNOMED Code(s): 08701519 (3) Pleural effusion Current Visit: Yes Status: Acute Code(s): J90 - PLEURAL EFFUSION, NOT ELSEW HERE CLASSIFIED SNOMED Code(s): 97790838 (4) Weakness Current Visit: Yes Status: Acute Code(s): R53.1 - WEAKNESS SNOMED Code(s): 50662369 (5) Pancreatitis Current Visit: No Status: Acute Code(s): K85.90 - ACUTE PANCREATITIS WITHOUT NECROSIS OR INFECTION, UNSP SNOMED Code(s): 68068769 (6) Diabetes Current Visit: Yes Status: Acute Code(s): E11.9 - TYPE 2 DIABETES MELLITUS WITHOUT COMPLICATIONS SNOMED Code(s): 53607363 (7) Acute renal disease Current Visit: Yes Status: Acute Code(s): N28.9 - DISORDER OF KIDNEY AND URETER, UNSPECIFIED SNOMED Code(s): 65852412 (8) UTI (urinary tract infection) Current Visit: Yes Status: Acute Code(s): N39.0 - URINARY TRACT INFECTION, SITE NOT SPECIFIED SNOMED Code(s): 38884579 Plan: Check CBC, CMP, amylase and lipase in the morning. Appreciate surgeon's recommendation regarding diet. Patient seen and evaluated by nurse practitioner, physician in agreement with plan
--- NOTE | 2023-10-24 09:54 | P.PN ---
Subjective Patient is seen in follow-up for acute kidney injury. Renal function improved. On IV fluids. Has Fisher catheter for urinary retention. On clear liquid diet. Denies pain. Vital signs are stable. General: No acute distress. HEENT: Head exam is unremarkable. LUNGS: No audible rhonchi or wheezes. HEART: Rate and Rhythm are regular. ABDOMEN: Nontender. Obese. EXTREMITITES: 1+ edema. Objective - Vital Signs Vital signs: Vital Signs Temp 97.7 F 10/24/23 08:16 Pulse 98 10/24/23 08:16 Resp 16 10/24/23 08:16 BP 142/78 10/24/23 08:16 Pulse Ox 96 10/24/23 08:16 FiO2 Intake & Output 10/23/23 10/24/23 10/24/23 18:59 06:59 18:59 Intake Total 20 260 Output Total 1350 700 Balance -1330 -440 Weight 95.8 kg Intake: IV 20 20 Invasive Line 1 20 20 Oral 240 Output: Urine 1350 700 Other: Voiding Method Indwelling Catheter Indwelling Catheter - Labs CBC & Chem 7: 10/24/23 06:33 10/24/23 06:33 Labs: Abnormal Lab Results - Last 24 Hours (Table) 10/23/23 10/23/23 10/23/23 Range/Units 10:04 10:04 11:54 WBC 13.5 H (3.8-10.6) k/uL RBC 3.30 L (4.30-5.90) m/uL Hgb 10.4 L (13.0-17.5) gm/dL Hct 31.9 L (39.0-53.0) % Neutrophils # 11.7 H (1.3-7.7) k/uL Lymphocytes # 0.8 L (1.0-4.8) k/uL Glucose 146 H (74-99) mg/dL POC Glucose (mg/dL) 125 H (70-110) mg/dL Calcium 8.3 L (8.4-10.2) mg/dL C-Reactive Protein 8.5 H (<1.0) mg/dL Total Protein 5.1 L (6.3-8.2) g/dL Albumin 2.5 L (3.5-5.0) g/dL Lipase 304 H (23-300) U/L Urine Protein (Negative) Urine Blood (Negative) Ur Leukocyte Esterase (Negative) Urine RBC (0-5) /hpf Urine WBC (0-5) /hpf Triple Phos Crystals (None) /hpf Urine Bacteria (None) /hpf 10/23/23 10/23/23 10/23/23 Range/Units 13:45 16:53 20:34 WBC (3.8-10.6) k/uL RBC (4.30-5.90) m/uL Hgb (13.0-17.5) gm/dL Hct (39.0-53.0) % Neutrophils # (1.3-7.7) k/uL Lymphocytes # (1.0-4.8) k/uL Glucose (74-99) mg/dL POC Glucose (mg/dL) 144 H 169 H (70-110) mg/dL Calcium (8.4-10.2) mg/dL C-Reactive Protein (<1.0) mg/dL Total Protein (6.3-8.2) g/dL Albumin (3.5-5.0) g/dL Lipase (23-300) U/L Urine Protein 2+ H (Negative) Urine Blood Moderate H (Negative) Ur Leukocyte Esterase Large H (Negative) Urine RBC >182 H (0-5) /hpf Urine WBC 32 H (0-5) /hpf Triple Phos Crystals Occasional H (None) /hpf Urine Bacteria Occasional H (None) /hpf 10/24/23 10/24/23 10/24/23 Range/Units 06:26 06:33 06:33 WBC 11.6 H (3.8-10.6) k/uL RBC 3.38 L (4.30-5.90) m/uL Hgb 10.7 L (13.0-17.5) gm/dL Hct 32.6 L (39.0-53.0) % Neutrophils # 9.5 H (1.3-7.7) k/uL Lymphocytes # (1.0-4.8) k/uL Glucose 135 H (74-99) mg/dL POC Glucose (mg/dL) 136 H (70-110) mg/dL Calcium (8.4-10.2) mg/dL C-Reactive Protein (<1.0) mg/dL Total Protein (6.3-8.2) g/dL Albumin (3.5-5.0) g/dL Lipase (23-300) U/L Urine Protein (Negative) Urine Blood (Negative) Ur Leukocyte Esterase (Negative) Urine RBC (0-5) /hpf Urine WBC (0-5) /hpf Triple Phos Crystals (None) /hpf Urine Bacteria (None) /hpf Assessment and Plan Plan: Assessment: 1. Acute kidney injury secondary to ATN. Improved. Creatinine 1.02 today. No hydronephrosis noted on CAT scan. Also received IV contrast for chest CTA October 18, 2023. 2. Urinary retention. Has Fisher catheter. On Flomax. 3. Fluid overload. 4. Pancreatitis. On clear liquid diet. Surgery following. Plan: Status post IV Lasix yesterday. Repeat 20 mg IV Lasix once today. Diet per surgery.
[2023-10-24] MEDS: FUROSEMIDE 10 MG/ML 2 ML VIAL IV ONE (11:26)
[2023-10-24 11:44] LABS: Glucose,Whole Blood 148 mg/dL (70-110)
--- NOTE | 2023-10-24 12:03 | P.PN ---
Subjective Progress Note Date: 10/24/23 CHIEF COMPLAINT: Shortness of breath and weakness HISTORY OF PRESENT ILLNESS: Patient denies any abdominal pain. Apparently over the weekend he had some pain with eating ice cream. He is currently tolerated the full liquids and lactose-free diet. He is reports no further bleeding from the rectum. Hemoglobin stable at 10.7. PHYSICAL EXAM: VITAL SIGNS: Reviewed. GENERAL: Well-developed in no acute distress. ABDOMEN: Soft. Nondistended. Nontender. ASSESSMENT: 1. Rectal bleeding noted with wiping, likely due to hemorrhoids. Now resolved. Hemoglobin stable 2. Pancreatitis. History of recent biliary stent at [facility] 3. History of cholecystectomy several years ago PLAN: -Agree with advancing diet to consistent carbohydrate, lactose free -No plans for endoscopy at this time Physician Aircraft Shipping Checker note has been reviewed by physician. Signing provider agrees with the documented findings, assessment, and plan of care. Objective - Vital Signs Vital signs: Vital Signs Temp 97.7 F 10/24/23 08:16 Pulse 63 10/24/23 11:24 Resp 16 10/24/23 11:24 BP 130/76 10/24/23 11:24 Pulse Ox 96 10/24/23 11:24 FiO2 Intake & Output 10/23/23 10/24/23 10/24/23 18:59 06:59 18:59 Intake Total 20 260 Output Total 1350 700 400 Balance -1330 -440 -400 Weight 95.8 kg Intake: IV 20 20 Invasive Line 1 20 20 Oral 240 Output: Urine 1350 700 400 Other: Voiding Method Indwelling Catheter Indwelling Catheter Indwelling Catheter - Labs CBC & Chem 7: 10/24/23 06:33 10/24/23 06:33 Labs: Abnormal Lab Results - Last 24 Hours (Table) 10/23/23 10/23/23 10/23/23 Range/Units 13:45 16:53 20:34 WBC (3.8-10.6) k/uL RBC (4.30-5.90) m/uL Hgb (13.0-17.5) gm/dL Hct (39.0-53.0) % Neutrophils # (1.3-7.7) k/uL Glucose (74-99) mg/dL POC Glucose (mg/dL) 144 H 169 H (70-110) mg/dL Urine Protein 2+ H (Negative) Urine Blood Moderate H (Negative) Ur Leukocyte Esterase Large H (Negative) Urine RBC >182 H (0-5) /hpf Urine WBC 32 H (0-5) /hpf Triple Phos Crystals Occasional H (None) /hpf Urine Bacteria Occasional H (None) /hpf 10/24/23 10/24/23 10/24/23 Range/Units 06:26 06:33 06:33 WBC 11.6 H (3.8-10.6) k/uL RBC 3.38 L (4.30-5.90) m/uL Hgb 10.7 L (13.0-17.5) gm/dL Hct 32.6 L (39.0-53.0) % Neutrophils # 9.5 H (1.3-7.7) k/uL Glucose 135 H (74-99) mg/dL POC Glucose (mg/dL) 136 H (70-110) mg/dL Urine Protein (Negative) Urine Blood (Negative) Ur Leukocyte Esterase (Negative) Urine RBC (0-5) /hpf Urine WBC (0-5) /hpf Triple Phos Crystals (None) /hpf Urine Bacteria (None) /hpf 10/24/23 Range/Units 11:42 WBC (3.8-10.6) k/uL RBC (4.30-5.90) m/uL Hgb (13.0-17.5) gm/dL Hct (39.0-53.0) % Neutrophils # (1.3-7.7) k/uL Glucose (74-99) mg/dL POC Glucose (mg/dL) 148 H (70-110) mg/dL Urine Protein (Negative) Urine Blood (Negative) Ur Leukocyte Esterase (Negative) Urine RBC (0-5) /hpf Urine WBC (0-5) /hpf Triple Phos Crystals (None) /hpf Urine Bacteria (None) /hpf
--- NOTE | 2023-10-24 12:49 | P.CONS ---
History of Present Illness - Reason for Consult Consult date: 10/24/23 Mild elevated LFTs, mild pancreatitis Requesting physician: Nicholas Padilla - Chief Complaint Shortness of breath and weakness - History of Present Illness This a pleasant 78-year-old male with a past medical history including coronary artery disease, diabetes mellitus, hyperlipidemia, hypertension, AR, prostate disorder and recent diagnosis of gallstone pancreatitis status post ERCP with CBD stent placement done at [facility] at the end of September. Patient presented to the emergency department with complaints of shortness of breath and difficulty breathing and generalized weakness and difficulty with ambulating. Patient states he has a history of cholecystectomy many years ago for gallstones. He came into our emergency department on 10/13/2023 with complaints of acute abdominal pain associated with nausea and vomiting and was noted to have possible choledocholithiasis and was transferred to [facility]. There he underwent ERCP with stent placement. On this hospitalization he had very mild elevation of LFTs and lipase and gastroenterology was consulted however there was no gastroenterology present in the hospital last week. We are seeing the patient for the first time today. He denies any abdominal pain, nausea or vomiting. LFTs are normal, lipase is minimally elevated at 304. He had a CT of the abdomen pelvis on 10/18/2023 which reports new internal biliary drainage catheter. No new biliary dilation. There is more prominent inflammatory change surrounding head and body of pancreas raising concern for worsening acute pancreatitis. Correlate clinically. He also underwent abdominal ultrasound reporting prominent CBD within limits of normal for postcholecystectomy patient. No definite calcification by ultrasound. Hepatomegaly correlate for underlying hepatocellular disease. Again patient denies any abdominal pain, nausea or vomiting. States shortness of breath improved. He is supposed to follow-up with gastroenterology from [facility] for stent removal in the next 2 to 4 weeks. Review of Systems REVIEW OF SYSTEMS: CARDIOPULMONARY: No chest pain or shortness of breath. Gastrointestinal: No abdominal pain. No nausea or vomiting. No hematemesis, coffee-ground emesis. No rectal bleeding, or melena. GENITOURINARY: No dysuria or hematuria. MUSCULOSKELETAL: Reports normal range of motion., Joint pain. SKIN: No rashes. No jaundice. ENDOCRINE: No chills, fevers. No excessive weight gain or loss. No polydipsia or polyuria. PSYCHIATRIC: Unremarkable. NEUROLOGY: No change in mental status. Denies dizziness, headache. ENT: Vision unremarkable. CONSTITUTIONAL: No recent weight loss. No fever, chills, night sweats. Past Medical History Past Medical History: Coronary Artery Disease (CAD), Diabetes Mellitus, Hyperlipidemia, Hypertension, Myocardial Infarction (AR), Prostate Disorder Additional Past Medical History / Comment(s): ulcers Last Myocardial Infarction Date:: 2011 History of Any Multi-Drug Resistant Organisms: None Reported Past Surgical History: Back Surgery, Cholecystectomy Additional Past Surgical History / Comment(s): fistula Past Anesthesia/Blood Transfusion Reactions: No Reported Reaction Past Psychological History: No Psychological Hx Reported Smoking Status: Never smoker Past Alcohol Use History: None Reported Past Drug Use History: None Reported Medications and Allergies Home Medications Medication Instructions Recorded Confirmed Type ALPRAZolam [Xanax] 0.5 mg PO BID 10/26/13 10/18/23 History Metoprolol Tartrate [Lopressor] 25 mg PO BID 10/26/13 10/18/23 History Tamsulosin HCl [Flomax] 0.4 mg PO DAILY 10/26/13 10/18/23 History metFORMIN HCL [Glucophage] 1,000 mg PO BID-W/MEALS 10/26/13 10/18/23 History Finasteride [Proscar] 5 mg PO DAILY 10/18/23 10/18/23 History Gabapentin [Neurontin] 300 mg PO BID 10/18/23 10/18/23 History Rosuvastatin [Crestor] 10 mg PO HS 10/18/23 10/18/23 History Allergies Allergy/AdvReac Type Severity Reaction Status Date / Time No Known Allergies Allergy Verified 10/18/23 10:14 Physical Exam Vitals: Vital Signs Temp Pulse Resp BP Pulse Ox 10/24/23 08:16 97.7 F 98 16 142/78 96 10/24/23 03:52 74 16 135/77 95 10/24/23 02:00 16 10/23/23 20:05 97.9 F 83 16 152/81 96 10/23/23 20:00 16 10/23/23 15:23 97.8 F 78 16 138/77 97 10/23/23 14:00 69 16 10/23/23 11:59 69 16 130/76 94 L 10/23/23 11:30 68 16 154/84 95 Intake and Output 10/23/23 10/24/2324 22:59 06:59 14:59 Intake Total 250 10 Output Total 850 700 400 Balance -600 -787 -400 Intake: IV 10 10 Invasive Line 1 10 10 Oral 240 Output: Urine 850 700 400 Other: Voiding Method Indwelling Catheter Indwelling Catheter Indwelling Catheter Weight 95.8 kg General appearance: The patient is alert, oriented, appears in no acute distress. HET: Head is normocephalic and atraumatic. Conjunctiva pink. Sclera anicteric. Neck: Supple without lymphadenopathy. Trachea midline. Heart: Regular. Lungs: Equal expansion, normal respiratory effort. Abdomen: Soft, obese, umbilical hernia, easily reduced, nontender, nondistended. Skin: No rashes. No jaundice. Extremities: Normal skin color and turgor. Lower extremity edema. Neurological: No focal deficits. Alert and oriented x3. Results CBC & Chem 7: 10/24/23 06:33 10/24/23 06:33 Labs: Abnormal Lab Results - Last 24 Hours (Table) 10/23/23 10/23/23 10/23/23 Range/Units 11:54 13:45 16:53 WBC (3.8-10.6) k/uL RBC (4.30-5.90) m/uL Hgb (13.0-17.5) gm/dL Hct (39.0-53.0) % Neutrophils # (1.3-7.7) k/uL Glucose (74-99) mg/dL POC Glucose (mg/dL) 125 H 144 H (70-110) mg/dL Urine Protein 2+ H (Negative) Urine Blood Moderate H (Negative) Ur Leukocyte Esterase Large H (Negative) Urine RBC >182 H (0-5) /hpf Urine WBC 32 H (0-5) /hpf Triple Phos Crystals Occasional H (None) /hpf Urine Bacteria Occasional H (None) /hpf 10/23/23 10/24/23 10/24/23 Range/Units 20:34 06:26 06:33 WBC 11.6 H (3.8-10.6) k/uL RBC 3.38 L (4.30-5.90) m/uL Hgb 10.7 L (13.0-17.5) gm/dL Hct 32.6 L (39.0-53.0) % Neutrophils # 9.5 H (1.3-7.7) k/uL Glucose (74-99) mg/dL POC Glucose (mg/dL) 169 H 136 H (70-110) mg/dL Urine Protein (Negative) Urine Blood (Negative) Ur Leukocyte Esterase (Negative) Urine RBC (0-5) /hpf Urine WBC (0-5) /hpf Triple Phos Crystals (None) /hpf Urine Bacteria (None) /hpf 10/24/23 Range/Units 06:33 WBC (3.8-10.6) k/uL RBC (4.30-5.90) m/uL Hgb (13.0-17.5) gm/dL Hct (39.0-53.0) % Neutrophils # (1.3-7.7) k/uL Glucose 135 H (74-99) mg/dL POC Glucose (mg/dL) (70-110) mg/dL Urine Protein (Negative) Urine Blood (Negative) Ur Leukocyte Esterase (Negative) Urine RBC (0-5) /hpf Urine WBC (0-5) /hpf Triple Phos Crystals (None) /hpf Urine Bacteria (None) /hpf Comments: CT of the abdomen pelvis on 10/18/2023 which reports new internal biliary drainage catheter. No new biliary dilation. There is more prominent inflammatory change surrounding head and body of pancreas raising concern for worsening acute pancreatitis. Correlate clinically. abdominal ultrasound reporting prominent CBD within limits of normal for postcholecystectomy patient. No definite calcification by ultrasound. Hepatomegaly correlate for underlying hepatocellular disease. Assessment and Plan (1) Pancreatitis Narrative/Plan: 78-year-old male recently diagnosed with a gallstone pancreatitis and transferred out of this facility on 10/13/2023 to [facility] where jose nuno underwent ERCP with stent placement. LFTs are all within normal limits, lipase is minimally elevated and likely secondary to recent pancreatitis. The patient is without any abdominal pain nausea or vomiting. He is recommended to follow-up with upholstery estimator as scheduled for stent removal. There is no indication for any further GI workup at this time. Will request records from [facility] for review. Current Visit: No Status: Acute Code(s): K85.90 - ACUTE PANCREATITIS WITHOUT NECROSIS OR INFECTION, UNSP SNOMED Code(s): 64816806 (2) Acute renal disease Current Visit: Yes Status: Acute Code(s): N28.9 - DISORDER OF KIDNEY AND URETER, UNSPECIFIED SNOMED Code(s): 98666373 (3) NSTEMI (non-ST elevated myocardial infarction) Current Visit: Yes Status: Acute Code(s): I21.4 - NON-ST ELEVATION (NSTEMI) MYOCARDIAL INFARCTION SNOMED Code(s): 25967475 (4) UTI (urinary tract infection) Current Visit: Yes Status: Acute Code(s): N39.0 - URINARY TRACT INFECTION, SITE NOT SPECIFIED SNOMED Code(s): 28030511 (5) Weakness Current Visit: Yes Status: Acute Code(s): R53.1 - WEAKNESS SNOMED Code(s): 64279808 Plan: 1. Continue symptomatic and supportive care 2. Will increase to consistent carbohydrate diet 3. No further gastroenterology workup indicated 4. Patient to follow-up with gastroenterology with [facility] for stent removal as scheduled 5. Rest of medical management per primary medical team Thank you for this consultation. Dr. Francisco Javier Wood I agree with the dictator's note, documented as a scribe by Melania Phoenix.
[2023-10-24] MEDS: ZINC OXIDE PASTE (Z-GUARD) 1 APPLIC TOPICAL PRN (16:00)
[2023-10-24 16:38] LABS: Glucose,Whole Blood 150 mg/dL (70-110)
[2023-10-24 19:57] LABS: Glucose,Whole Blood 139 mg/dL (70-110)
[2023-10-25 06:06] LABS: Glucose,Whole Blood 124 mg/dL (70-110)
[2023-10-25 06:38] LABS: HCT 32.7 % (39.0-53.0); HGB 10.7 gm/dL (13.0-17.5); MCH 31.5 pg (25.0-35.0); MCHC 32.6 g/dL (31.0-37.0); MCV 96.6 fL (80.0-100.0); Mean Platelet Volume 8.2; Platelet Count 411 k/uL (150-450); RBC 3.38 m/uL (4.30-5.90); RDW 13.2 % (11.5-15.5); WBC 8.7 k/uL (3.8-10.6)
[2023-10-25 06:57] LABS: ALT 30 U/L (4-49); AST 39 U/L (17-59); African American GFR (CKD) 77 (>60 ml/min/1.73 sqM); Albumin 2.5 g/dL (3.5-5.0); Alkaline Phosphatase 76 U/L (38-126); Amylase 30 U/L (30-110); Anion Gap 5 mmol/L; Blood Urea Nitrogen 14 mg/dL (9-20); Calcium 8.2 mg/dL (8.4-10.2); Carbon Dioxide 30 mmol/L (22-30); Chloride 103 mmol/L (98-107); Glucose 131 mg/dL (74-99); Lipase 257 U/L (23-300); Magnesium 1.5 mg/dL (1.6-2.3); Non-African American GFR(CKD) 66 (>60 ml/min/1.73 sqM); Potassium 3.6 mmol/L (3.5-5.1); Sodium 138 mmol/L (137-145); Total Bilirubin 0.5 mg/dL (0.2-1.3); Total Protein 5.1 g/dL (6.3-8.2)
--- NOTE | 2023-10-25 08:45 | P.DS ---
Providers Date of admission: 10/18/23 02:37 Attending physician: Nicholas Padilla Consults: 10/19/23 08:18 Consult Physician Routine Consulting Provider: Jessenia Todd Consult Reason/Comments: ARF Do you want consulting provider notified?: Yes 10/19/23 08:22 Consult Physician Routine Consulting Provider: Jeanie Wood Consult Reason/Comments: mild pancreatitis, elevation of LFT with abdominal pain Do you want consulting provider notified?: Yes 10/20/23 18:18 Consult Physician Routine Consulting Provider: Lion Mason Consult Reason/Comments: Blood in stool Do you want consulting provider notified?: Yes Primary care physician: Nicholas Padilla - Discharge Diagnosis(es) (1) Anxiety Current Visit: Yes Status: Acute (2) NSTEMI (non-ST elevated myocardial infarction) Current Visit: Yes Status: Acute (3) Pleural effusion Current Visit: Yes Status: Acute (4) Weakness Current Visit: Yes Status: Acute (5) Pancreatitis Current Visit: No Status: Acute (6) Diabetes Current Visit: Yes Status: Acute (7) Acute renal disease Current Visit: Yes Status: Acute (8) UTI (urinary tract infection) Current Visit: Yes Status: Acute Hospital Course: This is an 78-year-old male who was recently discharged from [facility] for ERCP with stenting who had weakness at home and difficulty breathing so he came into the emergency room for evaluation. Patient also with a recent diagnosis of pancreatitis. His enzymes have trended down, but did have some abdominal pain during this admission. He has been eating regular food since yesterday and abdominal pain has subsided. He will be discharged home on Ceftin for 5 days in regards to his UTI. He is to follow-up with [facility] as directed. Patient may be discharged today if cleared by consultants. Patient seen and evaluated by nurse practitioner, physician in agreement with plan. Patient Condition at Discharge: Fair Plan - Discharge Summary New Discharge Prescriptions: New cefUROXime axetiL [Ceftin] 500 mg PO BID 5 Days #10 tab Metoprolol Tartrate [Lopressor] 50 mg PO BID 30 Days #60 tab Continue metFORMIN HCL [Glucophage] 1,000 mg PO BID-W/MEALS Tamsulosin HCl [Flomax] 0.4 mg PO DAILY ALPRAZolam [Xanax] 0.5 mg PO BID Finasteride [Proscar] 5 mg PO DAILY Rosuvastatin [Crestor] 10 mg PO HS Gabapentin [Neurontin] 300 mg PO BID Discontinued Metoprolol Tartrate [Lopressor] 25 mg PO BID Discharge Medication List ALPRAZolam [Xanax] 0.5 mg PO BID 10/26/13 [History] Tamsulosin HCl [Flomax] 0.4 mg PO DAILY 10/26/13 [History] metFORMIN HCL [Glucophage] 1,000 mg PO BID-W/MEALS 10/26/13 [History] Finasteride [Proscar] 5 mg PO DAILY 10/18/23 [History] Gabapentin [Neurontin] 300 mg PO BID 10/18/23 [History] Rosuvastatin [Crestor] 10 mg PO HS 10/18/23 [History] Metoprolol Tartrate [Lopressor] 50 mg PO BID 30 Days #60 tab 10/25/23 [Rx] cefUROXime axetiL [Ceftin] 500 mg PO BID 5 Days #10 tab 10/25/23 [Rx] Follow up Appointment(s)/Referral(s): Madina Boo MD [STAFF PHYSICIAN] - 1 Week Nicholas Padilla MD [Primary Care Provider] - 1 Week Activity/Diet/Wound Care/Special Instructions: lactose free diet Discharge Disposition: HOME SELF-CARE
--- NOTE | 2023-10-25 11:12 | P.PN ---
Subjective Progress Note Date: 10/25/23 CHIEF COMPLAINT: Shortness of breath and weakness HISTORY OF PRESENT ILLNESS: Patient denies any abdominal pain. He is tolerating diet. He has had no further bleeding from rectum. Apparently over the weekend he had some pain with eating ice cream. He is currently tolerated the full liquids and lactose-free diet. He is reports no further bleeding from the rectum. Hemoglobin stable at 10.7. Patient being discharged today PHYSICAL EXAM: VITAL SIGNS: Reviewed. GENERAL: Well-developed in no acute distress. ABDOMEN: Soft. Nondistended. Nontender. ASSESSMENT: 1. Rectal bleeding noted with wiping, likely due to hemorrhoids. Now resolved. Hemoglobin stable 2. Pancreatitis. History of recent biliary stent at [facility] 3. History of cholecystectomy several years ago PLAN: -Agree with plan for discharge -Continue lactose-free diet -No plans for endoscopy Physician Marker Assembler note has been reviewed by physician. Signing provider agrees with the documented findings, assessment, and plan of care. Objective - Vital Signs Vital signs: Vital Signs Temp 97.7 F 10/25/23 08:00 Pulse 97 10/25/23 08:00 Resp 16 10/25/23 08:00 BP 162/72 10/25/23 08:00 Pulse Ox 99 10/25/23 08:00 FiO2 Intake & Output 10/24/23 10/25/23 10/25/23 18:59 06:59 18:59 Intake Total 338 246 128 Output Total 1400 1025 Balance -2249 -614 128 Weight 95.8 kg Intake: IV 10 10 Invasive Line 2 10 10 Oral 338 236 118 Output: Urine 1400 1025 Other: Voiding Method Indwelling Catheter Indwelling Catheter Indwelling Catheter - Labs CBC & Chem 7: 10/25/23 05:47 10/25/23 05:47 Labs: Abnormal Lab Results - Last 24 Hours (Table) 10/24/23 10/24/23 10/24/23 Range/Units 11:42 16:37 19:56 RBC (4.30-5.90) m/uL Hgb (13.0-17.5) gm/dL Hct (39.0-53.0) % Glucose (74-99) mg/dL POC Glucose (mg/dL) 148 H 150 H 139 H (70-110) mg/dL Calcium (8.4-10.2) mg/dL Magnesium (1.6-2.3) mg/dL Total Protein (6.3-8.2) g/dL Albumin (3.5-5.0) g/dL 10/25/23 10/25/23 10/25/23 Range/Units 05:47 05:47 06:04 RBC 3.38 L (4.30-5.90) m/uL Hgb 10.7 L (13.0-17.5) gm/dL Hct 32.7 L (39.0-53.0) % Glucose 131 H (74-99) mg/dL POC Glucose (mg/dL) 124 H (70-110) mg/dL Calcium 8.2 L (8.4-10.2) mg/dL Magnesium 1.5 L (1.6-2.3) mg/dL Total Protein 5.1 L (6.3-8.2) g/dL Albumin 2.5 L (3.5-5.0) g/dL
--- NOTE | 2023-10-25 11:33 | P.PN ---
Subjective Patient is seen in follow-up for acute kidney injury. Renal function improved. Tolerating oral intake. Now on regular diet. Has Fisher catheter for urinary retention. Denies pain. Vital signs are stable. General: No acute distress. HEENT: Head exam is unremarkable. LUNGS: No audible rhonchi or wheezes. HEART: Rate and Rhythm are regular. ABDOMEN: Nontender. Obese. EXTREMITITES: No edema. Objective - Vital Signs Vital signs: Vital Signs Temp 97.7 F 10/25/23 08:00 Pulse 97 10/25/23 08:00 Resp 16 10/25/23 08:00 BP 162/72 10/25/23 08:00 Pulse Ox 99 10/25/23 08:00 FiO2 Intake & Output 10/24/23 10/25/23 10/25/23 18:59 06:59 18:59 Intake Total 338 246 128 Output Total 1400 1025 Balance -6332 -819 128 Weight 95.8 kg Intake: IV 10 10 Invasive Line 2 10 10 Oral 338 236 118 Output: Urine 1400 1025 Other: Voiding Method Indwelling Catheter Indwelling Catheter Indwelling Catheter - Labs CBC & Chem 7: 10/25/23 05:47 10/25/23 05:47 Labs: Abnormal Lab Results - Last 24 Hours (Table) 10/24/23 10/24/23 10/24/23 Range/Units 11:42 16:37 19:56 RBC (4.30-5.90) m/uL Hgb (13.0-17.5) gm/dL Hct (39.0-53.0) % Glucose (74-99) mg/dL POC Glucose (mg/dL) 148 H 150 H 139 H (70-110) mg/dL Calcium (8.4-10.2) mg/dL Magnesium (1.6-2.3) mg/dL Total Protein (6.3-8.2) g/dL Albumin (3.5-5.0) g/dL 10/25/23 10/25/23 10/25/23 Range/Units 05:47 05:47 06:04 RBC 3.38 L (4.30-5.90) m/uL Hgb 10.7 L (13.0-17.5) gm/dL Hct 32.7 L (39.0-53.0) % Glucose 131 H (74-99) mg/dL POC Glucose (mg/dL) 124 H (70-110) mg/dL Calcium 8.2 L (8.4-10.2) mg/dL Magnesium 1.5 L (1.6-2.3) mg/dL Total Protein 5.1 L (6.3-8.2) g/dL Albumin 2.5 L (3.5-5.0) g/dL Assessment and Plan Plan: Assessment: 1. Acute kidney injury secondary to ATN. Improved. Creatinine 1.06 today. No hydronephrosis noted on CAT scan. Also received IV contrast for chest CTA October 18, 2023. 2. Urinary retention. Has Fisher catheter. On Flomax. 3. Fluid overload. Status post Lasix this admission. Improved. 4. Pancreatitis. On regular diet. Surgery following. Plan: Replace magnesium. Encouraged oral intake. Voiding trial today. Follow-up outpatient 1 week postdischarge.
[2023-10-25 11:40] LABS: Glucose,Whole Blood 125 mg/dL (70-110)
[2023-10-25] MEDS: MAGNESIUM SULFATE-D5W PMX 1 GM in DEXTROSE/WATER 1 100ML.BAG IVPB SCH (12:00)
[2023-10-25] MEDS: POTASSIUM CHLORIDE ER 20 MEQ TAB.ER PO STA (12:01)
[2023-10-25 13:21] VITALS: BMI 29.4
--- NOTE | 2023-10-25 13:41 | P.PN ---
Subjective Progress Note Date: 10/25/23 Principal diagnosis: Shortness of breath and weakness This a pleasant 78-year-old male with a past medical history including coronary artery disease, diabetes mellitus, hyperlipidemia, hypertension, [place], prostate disorder and recent diagnosis of gallstone pancreatitis status post ERCP with CBD stent placement done at [facility] at the end of September. Patient presented to the emergency department with complaints of shortness of breath and difficulty breathing and generalized weakness and difficulty with ambulating. Patient states he has a history of cholecystectomy many years ago for gallstones. He came into our emergency department on 10/13/2023 with complaints of acute abdominal pain associated with nausea and vomiting and was noted to have possible choledocholithiasis and was transferred to [facility]. There he underwent ERCP with stent placement. On this hospitalization he had very mild elevation of LFTs and lipase and gastroenterology was consulted however there was no gastroenterology present in the hospital last week. We are seeing the patient for the first time today. He denies any abdominal pain, nausea or vomiting. LFTs are normal, lipase is minimally elevated at 304. He had a CT of the abdomen pelvis on 10/18/2023 which reports new internal biliary drainage catheter. No new biliary dilation. There is more prominent inflammatory change surrounding head and body of pancreas raising concern for worsening acute pancreatitis. Correlate clinically. He also underwent abdominal ultrasound reporting prominent CBD within limits of normal for postcholecystectomy patient. No definite calcification by ultrasound. Hepatomegaly correlate for underlying hepatocellular disease. Again patient denies any abdominal pain, nausea or vomiting. States shortness of breath improved. He is supposed to follow-up with gastroenterology from [facility] for stent removal in the next 2 to 4 weeks. 10/25/2023 Patient seen and examined today as a follow-up no acute changes. Note complaints of abdominal pain, nausea or vomiting. We did receive records from [facility] gastroenterology patient did undergo ERCP on 10/15/2023 with a 7 cm biliary stent placement. Report does not include indication or specific findings. Objective - Vital Signs Vital signs: Vital Signs Temp 97.7 F 10/25/23 08:00 Pulse 97 10/25/23 08:00 Resp 16 10/25/23 08:00 BP 162/72 10/25/23 08:00 Pulse Ox 99 10/25/23 08:00 FiO2 Intake & Output 10/24/23 10/25/23 10/25/23 18:59 06:59 18:59 Intake Total 338 246 118 Output Total 1400 1025 Balance -1062 -779 118 Weight 95.8 kg Intake: IV 10 Invasive Line 2 10 Oral 338 236 118 Output: Urine 1400 1025 Other: Voiding Method Indwelling Catheter Indwelling Catheter - Exam General appearance: The patient is alert, oriented, appears in no acute distress. HET: Head is normocephalic and atraumatic. Conjunctiva pink. Sclera anicteric. Neck: Supple without lymphadenopathy. Abdomen: Soft, nontender, nondistended with bowel sounds. No guarding or rigidity. Extremities: Normal skin color and turgor. No pedal edema Skin: No rashes, no jaundice Neurological: No focal deficits. Alert and oriented. - Labs CBC & Chem 7: 10/25/23 05:47 10/25/23 05:47 Labs: Abnormal Lab Results - Last 24 Hours (Table) 10/24/23 10/24/23 10/24/23 Range/Units 11:42 16:37 19:56 RBC (4.30-5.90) m/uL Hgb (13.0-17.5) gm/dL Hct (39.0-53.0) % Glucose (74-99) mg/dL POC Glucose (mg/dL) 148 H 150 H 139 H (70-110) mg/dL Calcium (8.4-10.2) mg/dL Magnesium (1.6-2.3) mg/dL Total Protein (6.3-8.2) g/dL Albumin (3.5-5.0) g/dL 10/25/23 10/25/23 10/25/23 Range/Units 05:47 05:47 06:04 RBC 3.38 L (4.30-5.90) m/uL Hgb 10.7 L (13.0-17.5) gm/dL Hct 32.7 L (39.0-53.0) % Glucose 131 H (74-99) mg/dL POC Glucose (mg/dL) 124 H (70-110) mg/dL Calcium 8.2 L (8.4-10.2) mg/dL Magnesium 1.5 L (1.6-2.3) mg/dL Total Protein 5.1 L (6.3-8.2) g/dL Albumin 2.5 L (3.5-5.0) g/dL Assessment and Plan (1) Pancreatitis Narrative/Plan: 78-year-old male recently diagnosed with a gallstone pancreatitis and transferred out of this facility on 10/13/2023 to [facility] where he underwent ERCP with stent placement. LFTs are all within normal limits, lipase is minimally elevated and likely secondary to recent pancreatitis. The patient is without any abdominal pain nausea or vomiting. He is recommended to follow-up with prison warden as scheduled for stent removal. There is no indication for any further GI workup at this time. Will request records from [facility] for review. Reviewed report from [facility] gastroenterology with patient undergoing ERCP on 10/15/2023 with placement of 7 cm biliary stent Current Visit: No Status: Acute Code(s): K85.90 - ACUTE PANCREATITIS WITHOUT NECROSIS OR INFECTION, UNSP SNOMED Code(s): 16825633 (2) Acute renal disease Current Visit: Yes Status: Acute Code(s): N28.9 - DISORDER OF KIDNEY AND URETER, UNSPECIFIED SNOMED Code(s): 28810574 (3) NSTEMI (non-ST elevated myocardial infarction) Current Visit: Yes Status: Acute Code(s): I21.4 - NON-ST ELEVATION (NSTEMI) MYOCARDIAL INFARCTION SNOMED Code(s): 84500753 (4) UTI (urinary tract infection) Current Visit: Yes Status: Acute Code(s): N39.0 - URINARY TRACT INFECTION, SITE NOT SPECIFIED SNOMED Code(s): 05256568 (5) Weakness Current Visit: Yes Status: Acute Code(s): R53.1 - WEAKNESS SNOMED Code(s): 45516589 Plan: 1. Continue symptomatic and supportive care 2. Continue diet as tolerated 3. No further gastroenterology workup indicated 4. Patient to follow-up with gastroenterology with [facility] for stent removal as scheduled 5. Rest of medical management per primary medical team Thank you for this consultation, patient is cleared from gastroenterology. We will sign off at this time. Dr. Francisco Javier Wood I agree with the dictator's note, documented as a scribe by Melania Phoenix.
[2023-10-25 17:01] LABS: Glucose,Whole Blood 171 mg/dL (70-110)
[2023-10-25 20:32] LABS: Glucose,Whole Blood 127 mg/dL (70-110)
[2023-10-26 04:47] VITALS: RESP 18
[2023-10-26 06:11] LABS: Glucose,Whole Blood 148 mg/dL (70-110)
[2023-10-26 07:44] VITALS: BP 148/89; PULSE 93; TEMP 97.6
[2023-10-26] MEDS: FUROSEMIDE 10 MG/ML 4 ML VIAL IV STA (09:59)
[2023-10-26 10:22] LABS: African American GFR (CKD) 46 (>60 ml/min/1.73 sqM); Anion Gap 8 mmol/L; Blood Urea Nitrogen 17 mg/dL (9-20); Calcium 8.8 mg/dL (8.4-10.2); Carbon Dioxide 27 mmol/L (22-30); Chloride 103 mmol/L (98-107); Glucose 158 mg/dL (74-99); Magnesium 1.9 mg/dL (1.6-2.3); Non-African American GFR(CKD) 40 (>60 ml/min/1.73 sqM); Potassium 4.2 mmol/L (3.5-5.1); Sodium 138 mmol/L (137-145)
--- NOTE | 2023-10-26 10:37 | P.PN ---
Subjective Patient is seen in follow-up for acute kidney injury. Renal function worse. Fisher catheter was removed yesterday but required straight catheterization with 900 cc drained yesterday evening. Tolerating oral intake. Now on regular diet. Vital signs are stable. General: No acute distress. HEENT: Head exam is unremarkable. LUNGS: No audible rhonchi or wheezes. HEART: Rate and Rhythm are regular. ABDOMEN: Nontender. Obese. EXTREMITITES: 1+ edema. Objective - Vital Signs Vital signs: Vital Signs Temp 97.6 F 10/26/23 07:43 Pulse 93 10/26/23 07:43 Resp 18 10/26/23 07:43 BP 148/89 10/26/23 07:43 Pulse Ox 94 L 10/26/23 07:43 FiO2 Intake & Output 10/25/23 10/26/23 10/26/23 18:59 06:59 18:59 Intake Total 256 20 250 Output Total 900 Balance -644 20 250 Weight 95.8 kg 97.5 kg Intake: IV 20 20 10 Invasive Line 2 20 20 10 Oral 236 240 Output: Urine 900 Straight 900 Post Void Residual 0 Other: Voiding Method Urinal Toilet Urinal # Voids 3 - Labs CBC & Chem 7: 10/25/23 05:47 10/26/23 09:32 Labs: Abnormal Lab Results - Last 24 Hours (Table) 10/25/23 10/25/23 10/25/23 Range/Units 11:38 17:01 20:31 Creatinine (0.66-1.25) mg/dL Glucose (74-99) mg/dL POC Glucose (mg/dL) 125 H 171 H 127 H (70-110) mg/dL 10/26/23 10/26/23 Range/Units 06:09 09:32 Creatinine 1.61 H (0.66-1.25) mg/dL Glucose 158 H (74-99) mg/dL POC Glucose (mg/dL) 148 H (70-110) mg/dL Assessment and Plan Plan: Assessment: 1. Acute kidney injury secondary to ATN. Renal function worse today due to urinary retention. Required straight catheterization yesterday evening with 900 cc drained. No hydronephrosis noted on CAT scan. Also received IV contrast for chest CTA October 18, 2023. 2. Urinary retention. Fisher catheter removed October 25, 2023. Did require straight catheterization yesterday evening. On Flomax. 3. Fluid overload. Status post Lasix this admission. 4. Pancreatitis. On regular diet. Surgery following. Plan: Lasix 40 mg IV once today. Encouraged oral intake. Monitor bladder scans closely. Reinsert Fisher catheter and consult urology if has urinary retention. Follow-up outpatient 1 week postdischarge. Repeat BMP and magnesium level 2 to 3 days postdischarge.
--- NOTE | 2023-10-26 13:38 | P.PN ---
Subjective Progress Note Date: 10/26/23 CHIEF COMPLAINT: Shortness of breath and weakness HISTORY OF PRESENT ILLNESS: Patient denies any abdominal pain. He is tolerating diet. He has had no further bleeding from rectum. Patient is being discharged today PHYSICAL EXAM: VITAL SIGNS: Reviewed. GENERAL: Well-developed in no acute distress. ABDOMEN: Soft. Nondistended. Nontender. ASSESSMENT: 1. Rectal bleeding noted with wiping, likely due to hemorrhoids. Now resolved. Hemoglobin stable 2. Pancreatitis. History of recent biliary [facility] at [facility] 3. History of cholecystectomy several years ago PLAN: -Agree with plan for discharge -Continue lactose-free diet -No plans for endoscopy Physician Porcelain Enamel Installer note has been reviewed by physician. Signing provider agrees with the documented findings, assessment, and plan of care. Objective - Vital Signs Vital signs: Vital Signs Temp 97.6 F 10/26/23 07:43 Pulse 93 10/26/23 07:43 Resp 18 10/26/23 07:43 BP 148/89 10/26/23 07:43 Pulse Ox 94 L 10/26/23 07:43 FiO2 Intake & Output 10/25/23 10/26/23 10/26/23 18:59 06:59 18:59 Intake Total 256 20 250 Output Total 900 Balance -644 20 250 Weight 95.8 kg 97.5 kg Intake: IV 20 20 10 Invasive Line 2 20 20 10 Oral 236 240 Output: Urine 900 Straight 900 Post Void Residual 0 Other: Voiding Method Urinal Toilet Urinal # Voids 3 - Labs CBC & Chem 7: 10/25/23 05:47 10/26/23 09:32 Labs: Abnormal Lab Results - Last 24 Hours (Table) 10/25/23 10/25/23 10/26/23 Range/Units 17:01 20:31 06:09 Creatinine (0.66-1.25) mg/dL Glucose (74-99) mg/dL POC Glucose (mg/dL) 171 H 127 H 148 H (70-110) mg/dL 10/26/23 Range/Units 09:32 Creatinine 1.61 H (0.66-1.25) mg/dL Glucose 158 H (74-99) mg/dL POC Glucose (mg/dL) (70-110) mg/dL
== END 2023-10-26 11:18 | disposition home or self-care (01) | DRG 438 ==
LOC: EC 23:10 → 3SCARD 10-18 02:37
PROVIDERS: ADMIT Family Medicine; ATTEND Family Medicine
DX: K85.90 Acute pancreatitis without necrosis or infection, unspecified (principal); I21.4 Non-ST elevation (NSTEMI) myocardial infarction; N17.0 Acute kidney failure with tubular necrosis; J90 Pleural effusion, not elsewhere classified; N39.0 Urinary tract infection, site not specified; E11.9 Type 2 diabetes mellitus without complications; I10 Essential (primary) hypertension; E86.9 Volume depletion, unspecified; I25.10 Atherosclerotic heart disease of native coronary artery without angina pectoris; R09.02 Hypoxemia; D64.9 Anemia, unspecified; K64.9 Unspecified hemorrhoids; E78.5 Hyperlipidemia, unspecified; E87.70 Fluid overload, unspecified; F41.9 Anxiety disorder, unspecified; I25.2 Old myocardial infarction; Z79.899 Other long term (current) drug therapy; Z90.49 Acquired absence of other specified parts of digestive tract; Z79.82 Long term (current) use of aspirin; Z79.84 Long term (current) use of oral hypoglycemic drugs; Z95.5 Presence of coronary angioplasty implant and graft
CPT/HCPCS: 36415; 70450; 71045; 71275; 74177; 76700; 80048; 80053; 81001; 82150; 82803; 83036; 83605; 83690; 83735; 83880; 84484; 85025; 85027; 85379; 85610; 85730; 86140; 87636; 93005; 93306; 96374; 96375; 99291

== ENCOUNTER 2023-10-28 14:11 | Inpatient (IN) | payer MEDICARE, BC ==
--- NOTE | 2023-10-28 14:40 | ED ---
General Adult HPI - General Source: patient, family, RN notes reviewed, old records reviewed Limitations: no limitations <Branden Freeman - Last Filed: 10/28/23 14:38> - History of Present Illness -: week(s) Severity scale (1-10): 7 Consistency: constant Improves with: none Worsens with: none Associated Symptoms: confusion, loss of appetite, malaise, nausea/vomiting, shortness of breath, weakness Treatments Prior to Arrival: none <Ray Thomas - Last Filed: 11/11/23 18:27> - General Stated complaint: Weakness-Sent by PCP Time Seen by Provider: 10/28/23 14:30 - History of Present Illness Initial comments: Quick [id number] male presents emergency department with chief complaint of weakness, hematuria, abdominal issues. Patient has been in and out of the hospital over the last several weeks. Patient contacted PCP and advised him to return to emergency department for admission for increasing weakness, hematuria. Patient states that he has had abdominal issues with gallstones, stenting in which she states this stent needs to be removed soon. Patient also had discussion about possible surgical intervention. (Branden Freeman) This is an 78-year-old male to the ER for evaluation of weakness issues with abdominal pain and issues with persistent debility recent history with gallbladder and gallstones necessitating a biliary stent which needs to be removed. Patient is having severe debility on arrival to the ER with weakness and states she cannot take care of this patient (Ray Thomas) - Related Data Home Medications Medication Instructions Recorded Confirmed Tamsulosin HCl [Flomax] 0.4 mg PO DAILY 10/26/13 10/28/23 metFORMIN HCL [Glucophage] 1,000 mg PO BID-W/MEALS 10/26/13 10/28/23 Finasteride [Proscar] 5 mg PO DAILY 10/18/23 10/28/23 Gabapentin [Neurontin] 300 mg PO BID 10/18/23 10/28/23 Rosuvastatin [Crestor] 10 mg PO HS 10/18/23 10/28/23 Previous Rx's Medication Instructions Recorded Metoprolol Tartrate [Lopressor] 50 mg PO BID 30 Days #60 tab 10/25/23 cefUROXime axetiL [Ceftin] 500 mg PO BID 5 Days #10 tab 10/25/23 ALPRAZolam [Xanax] 0.5 mg PO BID #6 tab 11/02/23 Allergies Allergy/AdvReac Type Severity Reaction Status Date / Time No Known Allergies Allergy Verified 10/28/23 18:10 Review of Systems ROS Other: All systems not noted in ROS Statement are negative. <Branden Freeman - Last Filed: 10/28/23 14:38> ROS Other: All systems not noted in ROS Statement are negative. <Ray Thomas - Last Filed: 11/11/23 18:27> ROS Statement: Those systems with pertinent positive or pertinent negative responses have been documented in the HPI. Past Medical History Past Medical History: Coronary Artery Disease (CAD), Diabetes Mellitus, Hyperlipidemia, Hypertension, Myocardial Infarction ([place]), Prostate Disorder Additional Past Medical History / Comment(s): ulcers Last Myocardial Infarction Date:: 2011 History of Any Multi-Drug Resistant Organisms: None Reported Past Surgical History: Back Surgery, Cholecystectomy Additional Past Surgical History / Comment(s): fistula Past Anesthesia/Blood Transfusion Reactions: No Reported Reaction Past Psychological History: No Psychological Hx Reported Smoking Status: Never smoker Past Alcohol Use History: None Reported Past Drug Use History: None Reported <Branden Freeman - Last Filed: 10/28/23 14:38> General Exam <Branden Freeman - Last Filed: 10/28/23 14:38> General appearance: alert, in no apparent distress Head exam: Present: atraumatic, normocephalic, normal inspection Eye exam: Present: normal appearance, PERRL, EOMI. Absent: scleral icterus, conjunctival injection, periorbital swelling ENT exam: Present: normal exam, mucous membranes moist Neck exam: Present: normal inspection. Absent: tenderness, meningismus, lymphadenopathy Respiratory exam: Present: normal lung sounds bilaterally. Absent: respiratory distress, wheezes, rales, rhonchi, stridor Cardiovascular Exam: Present: regular rate, normal rhythm, normal heart sounds. Absent: systolic murmur, diastolic murmur, rubs, gallop, clicks GI/Abdominal exam: Present: soft, normal bowel sounds. Absent: distended, tenderness, guarding, rebound, rigid Extremities exam: Present: normal inspection, full ROM, normal capillary refill. Absent: tenderness, pedal edema, joint swelling, calf tenderness Back exam: Present: normal inspection Neurological exam: Present: alert, oriented X3, CN II-XII intact Psychiatric exam: Present: normal affect, normal mood Skin exam: Present: warm, dry, intact, normal color. Absent: rash <Ray Thomas - Last Filed: 11/11/23 18:27> - General Exam Comments Initial Comments: Visual Physical Exam Vital signs reviewed General: Well-appearing, nontoxic, no acute distress. Head: Normocephalic, atraumatic Eyes: PERRLA, EOMI ENT: Airway patent Chest: Nonlabored breathing Skin: No visual rash, normal skin tone Neuro: Alert and oriented 3 Musculoskeletal: No gross abnormalities (Branden Freeman) Course <Ray Thomas - Last Filed: 11/11/23 18:27> Vital Signs 10/28/23 10/28/23 10/28/23 15:22 17:33 18:17 Temperature 97.7 F 99.4 F Pulse Rate 80 80 73 Respiratory 16 18 18 Rate Blood Pressure 137/75 109/74 O2 Sat by Pulse 98 100 99 Oximetry 10/28/23 10/28/23 22:05 23:15 Temperature Pulse Rate 81 97 Respiratory 16 16 Rate Blood Pressure 134/78 155/94 O2 Sat by Pulse 97 95 Oximetry - Reevaluation(s) Reevaluation #1: 10/28/23 18:12 Medical records reviewed (Ray Thomas) Reevaluation #2: 10/28/23 18:12 Patient symptoms unchanged (Ray Thomas) Reevaluation #3: 10/28/23 18:12 Patient informed of results and questions answered (Ray Thomas) Reevaluation #4: Was pt. sent in by a medical professional or institution (, PA, CENTER MEDICAL DIRECTOR, urgent care, hospital, or group home...) When possible be specific @ -no Did you speak to anyone other than the patient for history (EMS, parent, family, police, friend...)? What history was obtained from this source @ -no Did you review nursing and triage notes (agree or disagree)? Why? @ -agree Are old charts reviewed (outside hosp., previous admission, EMS record, old EKG, old radiological studies, urgent care reports/EKG's, group home records)? Report findings @ -yes Differential Diagnosis (chest pain, altered mental status, abdominal pain women, abdominal pain men, vaginal bleeding, weakness, fever, dyspnea, syncope, hea dache, dizziness, GI bleed, back pain, seizure, CVA, palpatations, mental health, musculoskeletal)? @ -prior EKG interpreted by me (3pts min.). @ -yes X-rays interpreted by me (1pt min.). @ -yes negative for acute disease CT interpreted by me (1pt min.). @ -no U/S interpreted by me (1pt. min.). @ -no What testing was considered but not performed or refused? (CT, X-rays, U/S, labs)? Why? @ -none What meds were considered but not given or refused? Why? @ -none Did you discuss the management of the patient with other professionals (professionals i.e. , PA, CENTER MEDICAL DIRECTOR, lab, RT, psych nurse, addiction social worker, manager desktop, teacher, boat officer, caser)? Give summary @ -no Was smoking cessation discussed for >3mins.? @ -no Was critical care preformed (if so, how long)? @ -no Were there social determinants of health that impacted care today? How? (Homelessness, low income, unemployed, alcoholism, drug addiction, transportation, low edu. Level, literacy, decrease access to med. care, [place] [facility], rehab)? @ -none Was there de-escalation of care discussed even if they declined (Discuss DNR or withdrawal of care, Hospice)? DNR status @ -no What co-morbidities impacted this encounter? (DM, HTN, Smoking, COPD, CAD, Cancer, CVA, ARF, Chemo, Hep., AIDS, mental health diagnosis, sleep apnea, mo rbid obesity)? @ -none Was patient admitted / discharged? Hospital course, mention meds given and r oute, prescriptions, significant lab abnormalities, going to OR and other pertinent info. @ - 78 male will be admitted for severe weakness severe renal function and renal failure weakness and debility need for inpatient placement and inpatient acute rehab Admitted and weakness Undiagnosed new problem with uncertain prognosis? @ -no Drug Therapy requiring intensive monitoring for toxicity (Heparin, Nitro, Insulin, Cardizem)? @ -no Were any procedures done? @ -no Diagnosis/symptom? @ -Debility Acute, or Chronic, or Acute on Chronic? @ -Acute Uncomplicated (without systemic symptoms) or Complicated (systemic symptoms)? @ -Complicated Side effects of treatment? @ -no Exacerbation, Progression, or Severe Exacerbation? @ -exacerbation Poses a threat to life or bodily function? How? (Chest pain, [place], [place], pneumonia, PE, COPD, DKA, ARF, appy, cholecystitis, CVA, Diverticulitis, Homicidal, Suicidal, threat to staff... and all critical care pts) @ -yes extremes of age (Ray Thomas) Reevaluation #5: Differential Weakness: Hypoglycemia, shock, sepsis, hyponatremia, anemia, infection, [place], ETOH, adverse medicine reaction, overdose, stroke, this is not meant to be an all-inclusive list. (Ray Thomas) - Consultations Consultation #1: Spoke with admitting physicians who agreed to admit this patient (Ray Thomas) EKG Findings - EKG Comments: EKG Findings:: EKG is sinus 76 AK 135 QRS 87 QTc 435 - EKG Results: EKG: interpreted by ERMD <Ray Thomas - Last Filed: 11/11/23 18:27> Medical Decision Making <Branden Freeman - Last Filed: 10/28/23 14:38> - Lab Data Result diagrams: 11/02/23 05:45 11/02/23 05:45 - Radiology Data Radiology results: report reviewed (Chest x-ray), image reviewed <Ray Thomas - Last Filed: 11/11/23 18:27> - Medical Decision Making I completed the quick note portion of this chart signed Branden Freeman PA-C (Branden Freeman) 78 male will be admitted for severe weakness severe renal function and renal failure weakness and debility need for inpatient placement and inpatient acute rehab (Ray Thomas) - Lab Data Lab Results 10/28/23 10/28/23 10/28/23 Range/Units 14:55 14:55 14:55 WBC 12.8 H (3.8-10.6) k/uL RBC 3.64 L (4.30-5.90) m/uL Hgb 11.4 L (13.0-17.5) gm/dL Hct 35.1 L (39.0-53.0) % MCV 96.6 (80.0-100.0) fL MCH 31.4 (25.0-35.0) pg MCHC 32.5 (31.0-37.0) g/dL RDW 13.4 (11.5-15.5) % Plt Count 529 H (150-450) k/uL MPV 7.8 Neutrophils % 85 % Lymphocytes % 11 % Monocytes % 3 % Eosinophils % 1 % Basophils % 0 % Neutrophils # 10.8 H (1.3-7.7) k/uL Lymphocytes # 1.4 (1.0-4.8) k/uL Monocytes # 0.4 (0-1.0) k/uL Eosinophils # 0.1 (0-0.7) k/uL Basophils # 0.0 (0-0.2) k/uL PT 10.8 (10.0-12.5) sec INR 1.0 (<1.2) APTT 24.3 (22.0-30.0) sec Sodium 136 L (137-145) mmol/L Potassium 4.6 (3.5-5.1) mmol/L Chloride 102 (98-107) mmol/L Carbon Dioxide 21 L (22-30) mmol/L Anion Gap 13 mmol/L BUN 40 H (9-20) mg/dL Creatinine 5.36 H (0.66-1.25) mg/dL Est GFR (CKD-EPI)AfAm 11 (>60 ml/min/1.73 sqM) Est GFR (CKD-EPI)NonAf 9 (>60 ml/min/1.73 sqM) Glucose 164 H (74-99) mg/dL Lactic Ac Sepsis Rflx Plasma Lactic Acid Pramod (0.7-2.0) mmol/L Calcium 8.8 (8.4-10.2) mg/dL Magnesium 1.8 (1.6-2.3) mg/dL Total Bilirubin 0.4 (0.2-1.3) mg/dL AST 27 (17-59) U/L ALT 21 (4-49) U/L Alkaline Phosphatase 73 (38-126) U/L Troponin I (0.000-0.034) ng/mL NT-Pro-B Natriuret Pep 1670 pg/mL Total Protein 5.8 L (6.3-8.2) g/dL Albumin 3.0 L (3.5-5.0) g/dL 10/28/23 10/28/23 10/28/23 Range/Units 14:55 14:55 15:32 WBC (3.8-10.6) k/uL RBC (4.30-5.90) m/uL Hgb (13.0-17.5) gm/dL Hct (39.0-53.0) % MCV (80.0-100.0) fL MCH (25.0-35.0) pg MCHC (31.0-37.0) g/dL RDW (11.5-15.5) % Plt Count (150-450) k/uL MPV Neutrophils % % Lymphocytes % % Monocytes % % Eosinophils % % Basophils % % Neutrophils # (1.3-7.7) k/uL Lymphocytes # (1.0-4.8) k/uL Monocytes # (0-1.0) k/uL Eosinophils # (0-0.7) k/uL Basophils # (0-0.2) k/uL PT (10.0-12.5) sec INR (<1.2) APTT (22.0-30.0) sec Sodium (137-145) mmol/L Potassium (3.5-5.1) mmol/L Chloride (98-107) mmol/L Carbon Dioxide (22-30) mmol/L Anion Gap mmol/L BUN (9-20) mg/dL Creatinine (0.66-1.25) mg/dL Est GFR (CKD-EPI)AfAm (>60 ml/min/1.73 sqM) Est GFR (CKD-EPI)NonAf (>60 ml/min/1.73 sqM) Glucose (74-99) mg/dL Lactic Ac Sepsis Rflx Y Plasma Lactic Acid Pramod 5.0 H* (0.7-2.0) mmol/L Calcium (8.4-10.2) mg/dL Magnesium (1.6-2.3) mg/dL Total Bilirubin (0.2-1.3) mg/dL AST (17-59) U/L ALT (4-49) U/L Alkaline Phosphatase (38-126) U/L Troponin I <0.012 (0.000-0.034) ng/mL NT-Pro-B Natriuret Pep pg/mL Total Protein (6.3-8.2) g/dL Albumin (3.5-5.0) g/dL 10/28/23 Range/Units 17:47 WBC (3.8-10.6) k/uL RBC (4.30-5.90) m/uL Hgb (13.0-17.5) gm/dL Hct (39.0-53.0) % MCV (80.0-100.0) fL MCH (25.0-35.0) pg MCHC (31.0-37.0) g/dL RDW (11.5-15.5) % Plt Count (150-450) k/uL MPV Neutrophils % % Lymphocytes % % Monocytes % % Eosinophils % % Basophils % % Neutrophils # (1.3-7.7) k/uL Lymphocytes # (1.0-4.8) k/uL Monocytes # (0-1.0) k/uL Eosinophils # (0-0.7) k/uL Basophils # (0-0.2) k/uL PT (10.0-12.5) sec INR (<1.2) APTT (22.0-30.0) sec Sodium (137-145) mmol/L Potassium (3.5-5.1) mmol/L Chloride (98-107) mmol/L Carbon Dioxide (22-30) mmol/L Anion Gap mmol/L BUN (9-20) mg/dL Creatinine (0.66-1.25) mg/dL Est GFR (CKD-EPI)AfAm (>60 ml/min/1.73 sqM) Est GFR (CKD-EPI)NonAf (>60 ml/min/1.73 sqM) Glucose (74-99) mg/dL Lactic Ac Sepsis Rflx Plasma Lactic Acid Pramod 4.2 H* (0.7-2.0) mmol/L Calcium (8.4-10.2) mg/dL Magnesium (1.6-2.3) mg/dL Total Bilirubin (0.2-1.3) mg/dL AST (17-59) U/L ALT (4-49) U/L Alkaline Phosphatase (38-126) U/L Troponin I (0.000-0.034) ng/mL NT-Pro-B Natriuret Pep pg/mL Total Protein (6.3-8.2) g/dL Albumin (3.5-5.0) g/dL Disposition <Branden Freeman - Last Filed: 10/28/23 14:38> Is patient prescribed a controlled substance at d/c from ED?: No Time of Disposition: 18:00 <Ray Thomas - Last Filed: 11/11/23 18:27> Clinical Impression: Weakness, SUZY (acute kidney injury), CKD (chronic kidney disease), Debility Disposition: ADMITTED IP TO THIS HOSP Condition: Serious
[2023-10-28 15:11] LABS: Basophils % (A) 0 %; Eosinophils # (A) 0.1 k/uL (0-0.7); Eosinophils % (A) 1 %; HCT 35.1 % (39.0-53.0); HGB 11.4 gm/dL (13.0-17.5); Lymphocytes # (A) 1.4 k/uL (1.0-4.8); Lymphocytes % (A) 11 %; MCH 31.4 pg (25.0-35.0); MCHC 32.5 g/dL (31.0-37.0); MCV 96.6 fL (80.0-100.0); Mean Platelet Volume 7.8; Monocytes # (A) 0.4 k/uL (0-1.0); Monocytes % (A) 3 %; Neutrophils # (A) 10.8 k/uL (1.3-7.7); Neutrophils % (A) 85 %; Platelet Count 529 k/uL (150-450); RBC 3.64 m/uL (4.30-5.90); RDW 13.4 % (11.5-15.5); WBC 12.8 k/uL (3.8-10.6)
[2023-10-28 15:20] LABS: Partial Thromboplastin Time 24.3 sec (22.0-30.0); Prothrombin Time 10.8 sec (10.0-12.5)
[2023-10-28 15:25] LABS: ALT 21 U/L (4-49); AST 27 U/L (17-59); African American GFR (CKD) 11 (>60 ml/min/1.73 sqM); Alkaline Phosphatase 73 U/L (38-126); Anion Gap 13 mmol/L; Blood Urea Nitrogen 40 mg/dL (9-20); Calcium 8.8 mg/dL (8.4-10.2); Carbon Dioxide 21 mmol/L (22-30); Chloride 102 mmol/L (98-107); Glucose 164 mg/dL (74-99); Magnesium 1.8 mg/dL (1.6-2.3); Non-African American GFR(CKD) 9 (>60 ml/min/1.73 sqM); Potassium 4.6 mmol/L (3.5-5.1); Sodium 136 mmol/L (137-145); Total Bilirubin 0.4 mg/dL (0.2-1.3); Total Protein 5.8 g/dL (6.3-8.2)
[2023-10-28 15:33] LABS: NT-Pro-B-Type Natriuretic Pept 1670 pg/mL
[2023-10-28] MEDS ORDERED: ONDANSETRON 4 MG/2 ML VIAL IVP PRN (18:06)
[2023-10-28] MEDS ORDERED: MORPHINE SULFATE 4 MG/ML SYRINGE IV PRN (18:06)
[2023-10-28] MEDS ORDERED: NALOXONE 0.4 MG/ML 1 ML VIAL IV PRN (18:06)
[2023-10-28] MEDS: SODIUM CHLORIDE 0.9% 1,000 ML IV SCH (18:31)
--- NOTE | 2023-10-28 21:41 | XR ---
EXAMINATION TYPE: XR chest 2V DATE OF EXAM: 10/28/2023 7:58 PM CLINICAL INDICATION:Male, 78 years old with history of weakness with abdominal pain COMPARISON: Chest radiograph 10/17/2023 TECHNIQUE: XR chest 2V Frontal view of the chest. FINDINGS: Patient is notably rotated on exam which limits evaluation. Lungs/Pleura: There is no evidence of pleural effusion, focal consolidation, or pneumothorax. Pulmonary vascularity: Unremarkable. Heart/mediastinum: Cardiomediastinal silhouette is unremarkable. Musculoskeletal: No acute osseous pathology. IMPRESSION: No acute cardiopulmonary disease/process.
[2023-10-29 06:16] LABS: Glucose,Whole Blood 124 mg/dL (70-110)
[2023-10-29 08:14] LABS: ALT 19 U/L (4-49); AST 22 U/L (17-59); African American GFR (CKD) 8 (>60 ml/min/1.73 sqM); Albumin 2.8 g/dL (3.5-5.0); Alkaline Phosphatase 65 U/L (38-126); Anion Gap 14 mmol/L; Blood Urea Nitrogen 50 mg/dL (9-20); Calcium 8.4 mg/dL (8.4-10.2); Carbon Dioxide 20 mmol/L (22-30); Chloride 103 mmol/L (98-107); Glucose 127 mg/dL (74-99); Lipase 109 U/L (23-300); Magnesium 1.8 mg/dL (1.6-2.3); Non-African American GFR(CKD) 7 (>60 ml/min/1.73 sqM); Potassium 4.4 mmol/L (3.5-5.1); Sodium 137 mmol/L (137-145); Total Bilirubin 0.4 mg/dL (0.2-1.3); Total Protein 5.5 g/dL (6.3-8.2)
[2023-10-29 08:52] LABS: Basophils % (A) 0 %; Eosinophils # (A) 0.1 k/uL (0-0.7); Eosinophils % (A) 1 %; HCT 33.3 % (39.0-53.0); HGB 10.6 gm/dL (13.0-17.5); Lymphocytes % (A) 11 %; MCH 30.9 pg (25.0-35.0); MCHC 31.8 g/dL (31.0-37.0); Mean Platelet Volume 7.4; Monocytes # (A) 0.3 k/uL (0-1.0); Monocytes % (A) 3 %; Neutrophils # (A) 7.8 k/uL (1.3-7.7); Neutrophils % (A) 84 %; Platelet Count 463 k/uL (150-450); RBC 3.43 m/uL (4.30-5.90); RDW 13.1 % (11.5-15.5); WBC 9.3 k/uL (3.8-10.6)
[2023-10-29] MEDS: ALPRAZolam 0.5 MG TAB PO SCH (09:16)
[2023-10-29] MEDS: METOPROLOL TARTRATE 50 MG TAB PO SCH (09:17)
[2023-10-29] MEDS: TAMSULOSIN 0.4 MG CAP.ER.24H PO SCH (09:17)
[2023-10-29] MEDS: FINASTERIDE 5 MG TAB PO SCH (09:17)
[2023-10-29] MEDS: FUROSEMIDE 10 MG/ML 10 ML VIAL IV STA (10:05)
[2023-10-29 10:13] LABS: Amorphous Sediment,Urine Moderate /hpf; Appearance,Urine Turbid (Clear); Bacteria,Urine Rare /hpf; Bilirubin,Urine Negative (Negative); Blood,Urine Large (Negative); Color,Urine Red; Glucose,Urine (UA) Negative (Negative); Ketones,Urine Negative (Negative); Leukocyte Esterase,Urine Trace (Negative); Nitrite,Urine Negative (Negative); Protein,Urine 2+ (Negative); RBC,Urine 102 /hpf (0-5); Urobilinogen,Urine <2.0 mg/dL (<2.0); WBC,Urine 1 /hpf (0-5)
--- NOTE | 2023-10-29 10:23 | P.NPCON ---
History of Present Illness - Reason for Consult acute renal failure - History of Present Illness Reason for consultation: Acute kidney injury History of present illness: Patient is 78-year-old male seen in renal consultation for acute kidney injury. Patient's baseline creatinine is near 1. It was elevated at 5.36 on admission and is 6.6 today. Patient was recently admitted at this facility with pancr eatitis. He had developed acute kidney injury which improved with IV fluids as well as Fisher catheter as he had urinary retention. Patient was subsequently discharged. He was seen by his PCP and was noted to have hematuria and was sent back to the hospital. Patient states he has been having little urine output with gross hematuria. Bladder scan was done by the RN with me in the room and he was noted to have nearly liter of urinary retention. Fisher catheter will be placed. He is currently receiving IV fluids. Denies chest pain or shortness of breath. Tolerating p.o. intake. No vomiting or diarrhea. Denies use of nonsteroidals. Patient does have history of diabetes. Recent echocardiogram showed preserved ejection fraction. Vital signs are stable. General: No acute distress. HEENT: Head exam is unremarkable. LUNGS: No audible rhonchi or wheezes. HEART: Rate and Rhythm are regular. ABDOMEN: Nontender. EXTREMITITES: 2+ edema. Past Medical History Past Medical History: Coronary Artery Disease (CAD), Diabetes Mellitus, Hyperlipidemia, Hypertension, Myocardial Infarction ([place]), Prostate Disorder Additional Past Medical History / Comment(s): ulcers Last Myocardial Infarction Date:: 2011 History of Any Multi-Drug Resistant Organisms: None Reported Past Surgical History: Back Surgery, Cholecystectomy Additional Past Surgical History / Comment(s): fistula Past Anesthesia/Blood Transfusion Reactions: No Reported Reaction Past Psychological History: No Psychological Hx Reported Smoking Status: Never smoker Past Alcohol Use History: None Reported Past Drug Use History: None Reported Medications and Allergies Home Medications Medication Instructions Recorded Confirmed Type ALPRAZolam [Xanax] 0.5 mg PO BID 10/26/13 10/28/23 History Tamsulosin HCl [Flomax] 0.4 mg PO DAILY 10/26/13 10/28/23 History metFORMIN HCL [Glucophage] 1,000 mg PO BID-W/MEALS 10/26/13 10/28/23 History Finasteride [Proscar] 5 mg PO DAILY 10/18/23 10/28/23 History Gabapentin [Neurontin] 300 mg PO BID 10/18/23 10/28/23 History Rosuvastatin [Crestor] 10 mg PO HS 10/18/23 10/28/23 History Metoprolol Tartrate [Lopressor] 50 mg PO BID 30 Days #60 tab 10/25/23 10/28/23 Rx cefUROXime axetiL [Ceftin] 500 mg PO BID 5 Days #10 tab 10/25/23 10/28/23 Rx Allergies Allergy/AdvReac Type Severity Reaction Status Date / Time No Known Allergies Allergy Verified 10/28/23 18:10 Physical Exam Vitals: Vital Signs Temp Pulse Pulse Resp BP BP Pulse Ox 10/29/23 08:00 88 18 154/79 96 10/29/23 03:32 97.8 F 91 18 135/80 95 10/29/23 01:15 100 18 10/29/23 00:12 100 18 10/28/23 23:37 98.5 F 100 18 143/82 96 10/28/23 23:15 97 16 155/94 95 10/28/23 22:05 81 16 134/78 97 10/28/23 18:17 99.4 F 73 18 109/74 99 10/28/23 17:33 80 18 137/75 100 10/28/23 15:22 97.7 F 80 16 98 Intake and Output 10/28/23 10/29/23 10/29/23 22:59 06:59 14:59 Output Total 0 1450 Balance 0 -1450 Output: Urine 0 1450 Straight 1450 Other: Voiding Method Urinal Urinal Weight 99.79 kg 98 kg Results - Lab Results Most recent lab results Calcium 8.4 mg/dL (8.4-10.2) 10/29/23 07:23 Phosphorus 6.0 mg/dL (2.5-4.5) H 10/29/23 07:23 Magnesium 1.8 mg/dL (1.6-2.3) 10/29/23 07:23 10/29/23 08:33 10/29/23 07:23 Assessment and Plan Plan: Assessment: 1. Acute kidney injury secondary to urinary retention. Fisher catheter will be placed. Bladder scan greater than 900 cc of urine present. Baseline creatinine near 1 and is 6.6 today. 2. Volume overload secondary to urinary retention. 3. Metabolic acidosis secondary to acute kidney injury. 4. Diabetes mellitus. 5. Recent pancreatitis with biliary stent placement at [facility]. Plan: Decrease rate of normal saline to 50 cc an hour. Insert Fisher catheter. Maintain Flomax. Consult urology. Repeat labs in the morning. Thank you for the consultation. I will continue to follow the patient with you during his hospital stay.
--- NOTE | 2023-10-29 11:12 | P.HPIM ---
History of Present Illness H&P Date: 10/29/23 History of present illness; 78-year-old man presented to the emergency department with complaints of weakness, hematuria, and "abdominal issues". He has been in and out of the hospital for the last several weeks, and the patient states that he contacted his PCP who then advised him to return to the emergency department for admission due to his increasing weakness and hematuria. He states he has a recent history of gallstones which had required the placement of biliary stent which will need to be removed soon. Upon arrival to the emergency department patient was with his who stated that she cannot take care of the patient at this time due to his increasing debility. His past medical history of CAD with previous stenting to the RCA in 2007, diabetes, hypertension, hyperlipidemia. Most recently he was admitted to [facility] less than 2 weeks ago, and discharged on 10/26/2023, at that time he endorsed having recently been discharged [facility] following ERCP on 10/15/2023 with placement of a 7 cm biliary stent. While in the hospital at that time he stated he had a recent diagnosis of pancreatitis and it was noted that his enzymes have trended downwards. Upon discharge he was sent home on 5 days of Ceftin in regards to his UTI. On presentation to the emergency department yesterday patient was noted to have WBCs 12.8, Hgb 11.4 Hct 35.1, PLT 529, PT 10.8, INR 1.0, PTT 24.3, sodium 136, HCO3 21, BUN 40, creatinine 5.36, glucose 164, venous lactic acid 2.3, negative troponin. Patient's baseline creatinine was found to be 1. When seen today patient denies chest pain, shortness of breath, nausea/vomiting, or diarrhea. He is tolerating oral intake. Chest x-ray done in the emergency department showed no acute cardiopulmonary process/disease. On arrival patie nt's vitals showed blood pressure 137/75, heart rate of 80, respiratory rate of 18, oxygen saturation 100% on room air. Nephrology has been consulted, patient is currently on a renal diet, urinalysis ordered stat, lipase, magnesium, phosphorus all ordered to as well as new CBC and CMP. As of this morning patient's labs show sodium 137, HCO3 of 20 BUN 50, creatinine 6.6. Per nephrology's recommendation, patient was bladder scanned showed to be retaining, with insertion of Fisher catheter 1450 mL of urine which was bloody was received. Additionally patient's IV fluids dropped from 75 mL/h to 50 mL/h. Consult made to urology, pending their recommendations. Initial lab work done in the ER showed WBCs 12.8, Hgb 11.4 Hct 35.1, PLT 529, PT 10.8, INR 1.0, PTT 24.3, sodium 136, HCO3 21, BUN 40, creatinine 5.36, glucose 164, venous lactic acid 2.3, negative troponin EKG done in the ER showed heart rate of 76, no ST segment elevation or depression seen, no T-wave inversions seen. Chest x-ray done in the emergency department showed no acute cardiopulmonary process/disease Patient admitted to internal medicine service REVIEW OF SYSTEMS: CONSTITUTIONAL: No fever, no malaise, no fatigue. HEENT: No recent visual problems or hearing problems. Denied any sore throat. CARDIOVASCULAR: No chest pain, orthopnea, PND, no palpitations, no syncope. PULMONARY: No shortness of breath, no cough, no hemoptysis. GASTROINTESTINAL: No diarrhea, no nausea, no vomiting, no abdominal pain. NEUROLOGICAL: No headaches, no weakness, no numbness. HEMATOLOGICAL: Denies any bleeding or petechiae. GENITOURINARY: Denies any burning micturition, frequency, or urgency. MUSCULOSKELETAL/RHEUMATOLOGICAL: Denies any joint pain, swelling, or any muscle pain. ENDOCRINE: Denies any polyuria or polydipsia. The rest of the 14-point review of systems is negative. PHYSICAL EXAMINATION: GENERAL: The patient is alert and oriented x3, not in any acute distress. Well developed, well nourished. HEENT: Pupils are round and equally reacting to light. EOMI. No scleral icterus. No conjunctival pallor. Normocephalic, atraumatic. No pharyngeal erythema. No thyromegaly. CARDIOVASCULAR: S1 and S2 present. No murmurs, rubs, or gallops. PULMONARY: Chest is clear to auscultation, no wheezing or crackles. ABDOMEN: Soft, nontender, nondistended, normoactive bowel sounds. No palpable organomegaly. MUSCULOSKELETAL: No joint swelling or deformity. EXTREMITIES: No cyanosis, clubbing. Notably edematous NEUROLOGICAL: Gross neurological examination did not reveal any focal deficits. SKIN: No rashes. Assessment and plan # Acute kidney injury secondary to urinary retention On arrival patient's BUN was 40 creatinine 5.36; on repeat labs done today BUN 50 creatinine 6.6 - baseline creatinine is close to 1 Bladder scan done patient noted to be retaining greater than 900 cc of urine; Fisher catheter inserted Urine that was removed with Fisher catheter insertion which would be bloody; consult to urology was made due to the urinary retention Monitor I's and O's # Volume overload secondary to urinary retention Bladder scan done patient noted to be retaining greater than 900 cc of urine; Fisher catheter inserted Urine that was removed with Fisher catheter insertion which would be bloody; consult to urology was made due to the urinary retention Decreased fluids to 50 mL/h from 75 mL/h # History of diabetes mellitus # Recent pancreatitis following ERCP Continue to monitor vital signs, monitor CBC, monitor CMP, continue telemetry monitoring Labs and medication were reviewed. Continue with symptomatic treatment. Resume home medication. Monitor labs and vitals. Dictation was produced using [employer] dictation software. please excuse any grammatical, word or spelling errors. Dr. Tanika MD I have performed a history and physical examination and medical decision making of this patient, discussed the same with the the resident, and agree with the assessment and plan as written. I performed brief physical exam. Past Medical History Past Medical History: Coronary Artery Disease (CAD), Diabetes Mellitus, Hyperlipidemia, Hypertension, Myocardial Infarction (MT), Prostate Disorder Additional Past Medical History / Comment(s): ulcers Last Myocardial Infarction Date:: 2011 History of Any Multi-Drug Resistant Organisms: None Reported Past Surgical History: Back Surgery, Cholecystectomy Additional Past Surgical History / Comment(s): fistula Past Anesthesia/Blood Transfusion Reactions: No Reported Reaction Past Psychological History: No Psychological Hx Reported Smoking Status: Never smoker Past Alcohol Use History: None Reported Past Drug Use History: None Reported Medications and Allergies Home Medications Medication Instructions Recorded Confirmed Type ALPRAZolam [Xanax] 0.5 mg PO BID 10/26/13 10/28/23 History Tamsulosin HCl [Flomax] 0.4 mg PO DAILY 10/26/13 10/28/23 History metFORMIN HCL [Glucophage] 1,000 mg PO BID-W/MEALS 10/26/13 10/28/23 History Finasteride [Proscar] 5 mg PO DAILY 10/18/23 10/28/23 History Gabapentin [Neurontin] 300 mg PO BID 10/18/23 10/28/23 History Rosuvastatin [Crestor] 10 mg PO HS 10/18/23 10/28/23 History Metoprolol Tartrate [Lopressor] 50 mg PO BID 30 Days #60 tab 10/25/23 10/28/23 Rx cefUROXime axetiL [Ceftin] 500 mg PO BID 5 Days #10 tab 10/25/23 10/28/23 Rx Allergies Allergy/AdvReac Type Severity Reaction Status Date / Time No Known Allergies Allergy Verified 10/28/23 18:10 Physical Exam Vitals: Vital Signs Temp Pulse Pulse Resp BP BP Pulse Ox 10/29/23 03:32 97.8 F 91 18 135/80 95 10/29/23 01:15 100 18 10/29/23 00:12 100 18 10/28/23 23:37 98.5 F 100 18 143/82 96 10/28/23 23:15 97 16 155/94 95 10/28/23 22:05 81 16 134/78 97 10/28/23 18:17 99.4 F 73 18 109/74 99 10/28/23 17:33 80 18 137/75 100 10/28/23 15:22 97.7 F 80 16 98 Intake and Output 10/28/23 10/29/23 10/29/23 22:59 06:59 14:59 Output Total 0 Balance 0 Output: Urine 0 Other: Voiding Method Urinal Weight 99.79 kg 98 kg Results CBC & Chem 7: 10/29/23 08:33 10/29/23 07:23 Labs: Abnormal Lab Results - Last 24 Hours (Table) 10/28/23 10/28/23 10/28/23 Range/Units 14:55 14:55 14:55 WBC 12.8 H (3.8-10.6) k/uL RBC 3.64 L (4.30-5.90) m/uL Hgb 11.4 L (13.0-17.5) gm/dL Hct 35.1 L (39.0-53.0) % Plt Count 529 H (150-450) k/uL Neutrophils # 10.8 H (1.3-7.7) k/uL Sodium 136 L (137-145) mmol/L Carbon Dioxide 21 L (22-30) mmol/L BUN 40 H (9-20) mg/dL Creatinine 5.36 H (0.66-1.25) mg/dL Glucose 164 H (74-99) mg/dL POC Glucose (mg/dL) (70-110) mg/dL Plasma Lactic Acid Pramod 5.0 H* (0.7-2.0) mmol/L Total Protein 5.8 L (6.3-8.2) g/dL Albumin 3.0 L (3.5-5.0) g/dL 10/28/23 10/28/23 10/29/23 Range/Units 17:47 21:01 06:14 WBC (3.8-10.6) k/uL RBC (4.30-5.90) m/uL Hgb (13.0-17.5) gm/dL Hct (39.0-53.0) % Plt Count (150-450) k/uL Neutrophils # (1.3-7.7) k/uL Sodium (137-145) mmol/L Carbon Dioxide (22-30) mmol/L BUN (9-20) mg/dL Creatinine (0.66-1.25) mg/dL Glucose (74-99) mg/dL POC Glucose (mg/dL) 124 H (70-110) mg/dL Plasma Lactic Acid Pramod 4.2 H* 2.3 H* (0.7-2.0) mmol/L Total Protein (6.3-8.2) g/dL Albumin (3.5-5.0) g/dL Thrombosis Risk Factor Assmnt - Choose All That Apply Any of the Below Risk Factors Present?: Yes Each Factor Represents 1 point: Obesity (BMI >25) Other Risk Factors: Yes Each Risk Factor Represents 3 Points: Age 75 years or older Other congenital or acquired thrombophilia - If yes, enter type in comment: No Thrombosis Risk Factor Assessment Total Risk Factor Score: 4 Thrombosis Risk Factor Assessment Level: Moderate Risk
[2023-10-29 11:38] LABS: Glucose,Whole Blood 150 mg/dL (70-110)
[2023-10-29 16:36] LABS: Glucose,Whole Blood 167 mg/dL (70-110)
[2023-10-29] MEDS: ATORVASTATIN 20 MG TAB PO SCH (21:01)
[2023-10-30 06:27] LABS: Glucose,Whole Blood 133 mg/dL (70-110)
[2023-10-30] MEDS ORDERED: DEXTROSE 50% SYRINGE 50 ML IVP PRN ×2 (09:22)
[2023-10-30 10:20] LABS: Basophils % (A) 0 %; Eosinophils # (A) 0.1 k/uL (0-0.7); Eosinophils % (A) 2 %; HCT 34.9 % (39.0-53.0); HGB 10.8 gm/dL (13.0-17.5); Hypochromasia Marked; Lymphocytes # (A) 0.9 k/uL (1.0-4.8); Lymphocytes % (A) 14 %; MCH 31.2 pg (25.0-35.0); MCHC 31.1 g/dL (31.0-37.0); MCV 100.3 fL (80.0-100.0); Mean Platelet Volume 7.1; Monocytes # (A) 0.2 k/uL (0-1.0); Monocytes % (A) 4 %; Neutrophils # (A) 4.8 k/uL (1.3-7.7); Neutrophils % (A) 78 %; Platelet Count 477 k/uL (150-450); RBC 3.48 m/uL (4.30-5.90); RDW 13.1 % (11.5-15.5); WBC 6.1 k/uL (3.8-10.6)
--- NOTE | 2023-10-30 10:20 | P.PN ---
Subjective Patient is seen in follow-up for acute kidney injury. Has Fisher catheter for urinary retention. Urine output over 5 L in the last 24 hours. Morning labs pending. Denies chest pain or shortness of breath. Oral intake is good. Vital signs are stable. General: No acute distress. HEENT: Head exam is unremarkable. LUNGS: No audible rhonchi or wheezes. HEART: Rate and Rhythm are regular. ABDOMEN: Nontender. EXTREMITITES: 1+ edema. Objective - Vital Signs Vital signs: Vital Signs Temp 98.4 F 10/30/23 07:42 Pulse 72 10/30/23 07:42 Resp 16 10/30/23 07:42 BP 151/69 10/30/23 07:42 Pulse Ox 95 10/30/23 07:42 FiO2 Intake & Output 10/29/23 10/30/23 10/30/23 18:59 06:59 18:59 Intake Total 240 Output Total 3900 1650 475 Balance -3660 -1650 -475 Weight 95 kg Intake: Oral 240 Output: Urine 3900 1650 475 Straight 2900 Other: Voiding Method Urinal Indwelling Catheter Indwelling Catheter # Voids 1 # Bowel Movements 1 - Labs CBC & Chem 7: 10/29/23 08:33 10/29/23 07:23 Labs: Abnormal Lab Results - Last 24 Hours (Table) 10/29/23 10/29/23 10/30/23 Range/Units 11:36 16:35 06:23 POC Glucose (mg/dL) 150 H 167 H 133 H (70-110) mg/dL Assessment and Plan Plan: Assessment: 1. Acute kidney injury secondary to urinary retention. Fisher catheter placed. On Flomax. Baseline creatinine near 1 and up to 6.6 yesterday. Morning labs pending. 2. Volume overload secondary to urinary retention. Better. 3. Metabolic acidosis secondary to acute kidney injury and IV fluids. 4. Diabetes mellitus. 5. Recent pancreatitis with biliary stent placement at [facility]. Plan: Hep-Lock IV fluids. Lasix 20 mg IV once today. Await urology recommendations. Morning labs pending.
[2023-10-30 10:30] LABS: African American GFR (CKD) 34 (>60 ml/min/1.73 sqM); Anion Gap 7 mmol/L; Blood Urea Nitrogen 33 mg/dL (9-20); Calcium 8.5 mg/dL (8.4-10.2); Carbon Dioxide 26 mmol/L (22-30); Chloride 107 mmol/L (98-107); Glucose 164 mg/dL (74-99); Magnesium 1.8 mg/dL (1.6-2.3); Non-African American GFR(CKD) 30 (>60 ml/min/1.73 sqM); Potassium 4.3 mmol/L (3.5-5.1); Sodium 140 mmol/L (137-145)
[2023-10-30 11:45] LABS: Glucose,Whole Blood 131 mg/dL (70-110)
[2023-10-30] MEDS: INSULIN ASPART (NovoLOG) 100 UNIT/ML VIAL SQ SCH (11:58)
--- NOTE | 2023-10-30 11:59 | P.GSCN ---
History of Present Illness Consult date: 10/30/23 Reason for Consult: Urinary retention, hematuria Requesting physician: Jean Shanks History of present illness: The patient is an 78-year-old male with a history of BPH. He was previously followed by Dr. Lang. He has taken tamsulosin and finasteride for at least several years. He was recently hospitalized with weakness following ERCP at [facility] for gallstone pancreatitis. He presented to the ER on October 27 with weakness and hematuria. He was found to be in urinary retention, and 1450 cc of urine was obtained upon Fisher catheter insertion. Review of Systems - Constitutional Reports weakness - Respiratory Reports dyspnea - Genitourinary Reports as per HPI Past Medical History Past Medical History: Coronary Artery Disease (CAD), Diabetes Mellitus, Hyperlipidemia, Hypertension, Myocardial Infarction ([place]), Prostate Disorder Additional Past Medical History / Comment(s): ulcers Last Myocardial Infarction Date:: 2011 History of Any Multi-Drug Resistant Organisms: None Reported Past Surgical History: Back Surgery, Cholecystectomy Additional Past Surgical History / Comment(s): fistula Past Anesthesia/Blood Transfusion Reactions: No Reported Reaction Past Psychological History: No Psychological Hx Reported Smoking Status: Never smoker Past Alcohol Use History: None Reported Past Drug Use History: None Reported Medications and Allergies Home Medications Medication Instructions Recorded Confirmed Type ALPRAZolam [Xanax] 0.5 mg PO BID 10/26/13 10/28/23 History Tamsulosin HCl [Flomax] 0.4 mg PO DAILY 10/26/13 10/28/23 History metFORMIN HCL [Glucophage] 1,000 mg PO BID-W/MEALS 10/26/13 10/28/23 History Finasteride [Proscar] 5 mg PO DAILY 10/18/23 10/28/23 History Gabapentin [Neurontin] 300 mg PO BID 10/18/23 10/28/23 History Rosuvastatin [Crestor] 10 mg PO HS 10/18/23 10/28/23 History Metoprolol Tartrate [Lopressor] 50 mg PO BID 30 Days #60 tab 10/25/23 10/28/23 Rx cefUROXime axetiL [Ceftin] 500 mg PO BID 5 Days #10 tab 10/25/23 10/28/23 Rx Allergies Allergy/AdvReac Type Severity Reaction Status Date / Time No Known Allergies Allergy Verified 09/13/24 18:10 Surgical - Exam Vital Signs Temp Pulse Resp Pulse Ox 97.7 F 80 16 98 10/28/23 15:22 10/28/23 15:22 10/28/23 15:22 10/28/23 15:22 - General well developed, well nourished, no distress - Respiratory normal respiratory effort - Abdomen Abdomen: soft, non tender, no guarding, no rigid, no rebound - Genitourinary normal penis with no external lesions, testicles non-tender - Rectum Rectum: normal sphincter tone, no masses, other (Prostate 35 to 40 g, smooth) - Psychiatric oriented to time, oriented to person, oriented to place, speech is normal, memory intact Results - Labs 10/30/23 09:48 10/30/23 09:48 Abnormal Lab Results - Last 24 Hours (Table) 10/29/23 10/29/23 10/30/23 Range/Units 11:36 16:35 06:23 RBC (4.30-5.90) m/uL Hgb (13.0-17.5) gm/dL Hct (39.0-53.0) % MCV (80.0-100.0) fL Plt Count (150-450) k/uL Lymphocytes # (1.0-4.8) k/uL POC Glucose (mg/dL) 150 H 167 H 133 H (70-110) mg/dL 10/30/23 Range/Units 09:48 RBC 3.48 L (4.30-5.90) m/uL Hgb 10.8 L (13.0-17.5) gm/dL Hct 34.9 L (39.0-53.0) % MCV 100.3 H (80.0-100.0) fL Plt Count 477 H (150-450) k/uL Lymphocytes # 0.9 L (1.0-4.8) k/uL POC Glucose (mg/dL) (70-110) mg/dL - Imaging CT scan - abdomen: report reviewed, image reviewed Assessment and Plan Assessment: CT scan shows normal kidneys. The bladder was distended, and multiple large calculi appear to be present within the bladder. This is somewhat difficult to interpret given the presence of contrast within the bladder. (1) Retention of urine, unspecified Current Visit: Yes Status: Acute Code(s): R33.9 - RETENTION OF URINE, UNSPECIFIED SNOMED Code(s): 740879952 (2) Gross hematuria Current Visit: Yes Status: Acute Code(s): R31.0 - GROSS HEMATURIA SNOMED Code(s): 725863893 (3) Bladder calculi Current Visit: Yes Status: Acute Code(s): N21.0 - CALCULUS IN BLADDER SNOMED Code(s): 49217773 Plan: I had a lengthy discussion with the patient regarding his urinary retention and hematuria. We discussed the fact that laboratory values were consistent with renal failure upon admission, but his serum creatinine level today is much improved. It would be my recommendation that the Fisher catheter remain in place, and that he be discharged home with the catheter. Arrangements will be made by my office to schedule him to undergo urodynamic testing and cystoscopy in the office for further evaluation. Please notify me if I can be of any further assistance during this hospitalization. Time with Patient: Greater than 30
[2023-10-30] MEDS: FUROSEMIDE 10 MG/ML 2 ML VIAL IV ONE (12:13)
[2023-10-30 15:30] LABS: Basophils # (A) 0.1 k/uL (0-0.2); Basophils % (A) 1 %; Eosinophils # (A) 0.1 k/uL (0-0.7); Eosinophils % (A) 1 %; HCT 32.5 % (39.0-53.0); HGB 10.6 gm/dL (13.0-17.5); Lymphocytes % (A) 11 %; MCH 31.5 pg (25.0-35.0); MCHC 32.5 g/dL (31.0-37.0); MCV 96.9 fL (80.0-100.0); Mean Platelet Volume 7.6; Monocytes # (A) 0.4 k/uL (0-1.0); Monocytes % (A) 4 %; Neutrophils # (A) 7.3 k/uL (1.3-7.7); Neutrophils % (A) 82 %; Platelet Count 455 k/uL (150-450); RBC 3.35 m/uL (4.30-5.90); RDW 13.6 % (11.5-15.5); WBC 8.9 k/uL (3.8-10.6)
--- NOTE | 2023-10-30 15:47 | P.PN ---
Subjective Progress Note Date: 10/30/23 History of present illness; 78-year-old man presented to the emergency department with complaints of weakness, hematuria, and "abdominal issues". He has been in and out of the hospital for the last several weeks, and the patient states that he contacted his PCP who then advised him to return to the emergency department for admission due to his increasing weakness and hematuria. He states he has a recent history of gallstones which had required the placement of biliary stent which will need to be removed soon. Upon arrival to the emergency department patient was with his who stated that she cannot take care of the patient at this time due to his increasing debility. His past medical history of CAD with previous stenting to the RCA in 2007, diabetes, hypertension, hyperlipidemia. Most recently he was admitted to [facility] less than 2 weeks ago, and discharged on 10/26/2023, at that time he endorsed having recently been discharged [facility] home following ERCP on 10/15/2023 with placement of a 7 cm biliary stent. While in the hospital at that time he stated he had a recent diagnosis of pancreatitis and it was noted that his enzymes have trended downwards. Upon discharge he was sent home on 5 days of Ceftin in regards to his UTI. On presentation to the emergency department yesterday patient was noted to have WBCs 12.8, Hgb 11.4 Hct 35.1, PLT 529, PT 10.8, INR 1.0, PTT 24.3, sodium 136, HCO3 21, BUN 40, creatinine 5.36, glucose 164, venous lactic acid 2.3, negative troponin. Patient's baseline creatinine was found to be 1. When seen today patient denies chest pain, shortness of breath, nausea/vomiting, or diarrhea. He is tolerating oral intake. Chest x-ray done in the emergency department showed no acute cardiopulmonary process/disease. On arrival patient's vitals showed blood pressure 137/75, heart rate of 80, respiratory rate of 18, oxygen saturation 100% on room air. Nephrology has been consulted, patient is currently on a renal diet, urinalysis ordered stat, lipase, magnesium, phosphorus all ordered to as well as new CBC and CMP. As of this morning patient's labs show sodium 137, HCO3 of 20 BUN 50, creatinine 6.6. Per nephrology's recommendation, patient was bladder scanned showed to be retaining, with insertion of Fisher catheter 1450 mL of urine which was bloody was received. Additionally patient's IV fluids dropped from 75 mL/h to 50 mL/h. Consult made to urology, pending their recommendations. Initial lab work done in the ER showed WBCs 12.8, Hgb 11.4 Hct 35.1, PLT 529, PT 10.8, INR 1.0, PTT 24.3, sodium 136, HCO3 21, BUN 40, creatinine 5.36, glucose 164, venous lactic acid 2.3, negative troponin EKG done in the ER showed heart rate of 76, no ST segment elevation or depression seen, no T-wave inversions seen. Chest x-ray done in the emergency department showed no acute cardiopulmonary process/disease Patient admitted to internal medicine service 10/30/2023 Patient is evaluated today in follow-up on the medical floor. His creatinine is down to 2.05. He received a dose of IV Lasix yesterday and another 20 mg IV dos e today. His urine is still slightly bloody overall improving. Urology has evaluated the patient recommending to follow-up in the office. REVIEW OF SYSTEMS: CONSTITUTIONAL: No fever, no malaise, no fatigue. HEENT: No recent visual problems or hearing problems. Denied any sore throat. CARDIOVASCULAR: No chest pain, orthopnea, PND, no palpitations, no syncope. PULMONARY: No shortness of breath, no cough, no hemoptysis. GASTROINTESTINAL: No diarrhea, no nausea, no vomiting, no abdominal pain. NEUROLOGICAL: No headaches, no weakness, no numbness. PHYSICAL EXAMINATION: GENERAL: The patient is alert and oriented x3, not in any acute distress. Well developed, well nourished. HEENT: Pupils are round and equally reacting to light. EOMI. No scleral icterus. No conjunctival pallor. Normocephalic, atraumatic. No pharyngeal erythema. No thyromegaly. CARDIOVASCULAR: S1 and S2 present. No murmurs, rubs, or gallops. PULMONARY: Chest is clear to auscultation, no wheezing or crackles. ABDOMEN: Soft, nontender, nondistended, normoactive bowel sounds. No palpable organomegaly. MUSCULOSKELETAL: No joint swelling or deformity. EXTREMITIES: No cyanosis, clubbing. Notably edematous NEUROLOGICAL: Gross neurological examination did not reveal any focal deficits. SKIN: No rashes. Assessment and plan # Acute kidney injury secondary to urinary retention On arrival patient's BUN was 40 creatinine 5.36; on repeat labs done today BUN 50 creatinine 6.6 - baseline creatinine is close to 1 -Creatinine down to 2.05 patient did receive a dose of IV Lasix yesterday Bladder scan done patient noted to be retaining greater than 900 cc of urine; Fisher catheter inserted Urine that was removed with Fisher catheter insertion which would be bloody; consult to urology was made due to the urinary retention Monitor I's and O's # Volume overload secondary to urinary retention Bladder scan done patient noted to be retaining greater than 900 cc of urine; Fisher catheter inserted Urine that was removed with Fisher catheter insertion which would be bloody; consult to urology was made due to the urinary retention Decreased fluids to 50 mL/h from 75 mL/h # History of diabetes mellitus -Sliding scale insulin with Accu-Cheks ACHS # Recent pancreatitis following ERCP Patient with recent biliary stent placed to [facility] family is inquiring about removal and would recommend for patient to follow-up with their GI specialist out of [facility] Continue to monitor vital signs, monitor CBC, monitor CMP, continue telemetry monitoring Nephrology recommending 1 more day with repeat blood work in the morning. Urology has evaluated the patient recommending to continue Flomax and patient will follow-up in the office discharge. Continue with indwelling Fisher catheter on discharge. Labs and medication were reviewed. Continue with symptomatic treatment. Resume home medication. Monitor labs and vitals. Dictation was produced using [employer] dictation software. please excuse any grammatical, word or spelling errors. The impression and plan of care has been dictated by Viridiana Branch, Nurse Practitioner as directed. Dr. Tanika MD I have performed a history and physical examination and medical decision making of this patient, discussed the same with the dictator, and agree with the dictators assessment and plan as written, documented as a scribe. Based on total visit time, I have performed more than 50% of this visit. Objective - Vital Signs Vital signs: Vital Signs Temp 98.4 F 10/30/23 07:42 Pulse 72 10/30/23 07:42 Resp 16 10/30/23 07:42 BP 151/69 10/30/23 07:42 Pulse Ox 95 10/30/23 07:42 FiO2 Intake & Output 10/29/23 10/30/23 10/30/23 18:59 06:59 18:59 Intake Total 240 Output Total 3900 1650 Balance -3660 -1650 Weight 95 kg Intake: Oral 240 Output: Urine 3900 1650 Straight 2900 Other: Voiding Method Urinal Indwelling Catheter Indwelling Catheter # Voids 1 - Labs CBC & Chem 7: 10/30/23 14:55 10/30/23 09:48 Labs: Abnormal Lab Results - Last 24 Hours (Table) 10/29/23 10/29/23 10/29/23 Range/Units 10:00 11:36 16:35 POC Glucose (mg/dL) 150 H 167 H (70-110) mg/dL Urine Protein 2+ H (Negative) Urine Blood Large H (Negative) Ur Leukocyte Esterase Trace H (Negative) Urine RBC 102 H (0-5) /hpf Amorphous Sediment Moderate H (None) /hpf Urine Bacteria Rare H (None) /hpf 10/30/23 Range/Units 06:23 POC Glucose (mg/dL) 133 H (70-110) mg/dL Urine Protein (Negative) Urine Blood (Negative) Ur Leukocyte Esterase (Negative) Urine RBC (0-5) /hpf Amorphous Sediment (None) /hpf Urine Bacteria (None) /hpf Assessment and Plan Time with Patient: Less than 30
[2023-10-30 16:35] LABS: Glucose,Whole Blood 200 mg/dL (70-110)
[2023-10-30 20:03] LABS: Glucose,Whole Blood 228 mg/dL (70-110)
[2023-10-30] MEDS: ACETAMINOPHEN TAB 325 MG TAB PO PRN (20:17)
[2023-10-31] MEDS: HYDROcodone/APAP 5-325MG 1 EACH TAB PO PRN (00:01)
[2023-10-31 06:07] LABS: Glucose,Whole Blood 170 mg/dL (70-110)
--- NOTE | 2023-10-31 08:49 | P.PN ---
Subjective Progress Note Date: 10/31/23 This is an 78-year-old male who presented to the emergency department with complaints of weakness, hematuria and abdominal issues. Patient has had 2 recent admissions to the hospital, 1 being at [facility] for an ERCP and placement of a 7 cm biliary stent. Patient was hospitalized last week here at [facility] for weakness and abdominal pain. Patient was discharged from [facility] last and developed hematuria at home and got progressively weaker. Creatinine on admission was 5.36, and is trending down currently. Patient seen and evaluated by urology who are recommending he be discharged with Fisher catheter. Patient's urine is clear today but still slightly cloudy. Patient seen this morning sitting up in chair at bedside. He reports he is feeling much better. He is tolerating diet. Vitals are stable. Labs for today are not back yet at time of dictation. Objective - Vital Signs Vital signs: Vital Signs Temp 97.9 F 10/31/23 08:19 Pulse 99 10/31/23 08:19 Resp 18 10/31/23 08:19 BP 159/92 10/31/23 08:19 Pulse Ox 99 10/31/23 08:19 FiO2 Intake & Output 10/30/23 10/31/23 10/31/23 18:59 06:59 18:59 Intake Total 120 10 Output Total 1875 1300 Balance -1755 -1290 Weight 96 kg Intake: IV 10 Invasive Line 1 10 Oral 120 Output: Urine 1875 1300 Other: Voiding Method Indwelling Catheter Indwelling Catheter # Bowel Movements 1 - Constitutional General appearance: Present: cooperative, no acute distress - EENT Eyes: Present: PERRLA - Neck Neck: Present: normal ROM. Absent: lymphadenopathy, rigidity - Respiratory Respiratory: bilateral: CTA - Cardiovascular Rhythm: regular Heart sounds: normal: S1, S2 - Gastrointestinal General gastrointestinal: Present: soft. Absent: tenderness - Integumentary Integumentary: Present: normal, normal turgor - Musculoskeletal Musculoskeletal: Present: generalized weakness - Psychiatric Psychiatric: Present: A&O x's 3 - Labs CBC & Chem 7: 10/30/23 14:55 10/30/23 09:48 Labs: Abnormal Lab Results - Last 24 Hours (Table) 10/30/23 10/30/23 10/30/23 Range/Units 09:48 09:48 11:43 RBC 3.48 L (4.30-5.90) m/uL Hgb 10.8 L (13.0-17.5) gm/dL Hct 34.9 L (39.0-53.0) % MCV 100.3 H (80.0-100.0) fL Plt Count 477 H (150-450) k/uL Lymphocytes # 0.9 L (1.0-4.8) k/uL BUN 33 H (9-20) mg/dL Creatinine 2.05 H (0.66-1.25) mg/dL Glucose 164 H (74-99) mg/dL POC Glucose (mg/dL) 131 H (70-110) mg/dL 10/30/23 10/30/23 10/30/23 Range/Units 14:55 16:33 20:01 RBC 3.35 L (4.30-5.90) m/uL Hgb 10.6 L (13.0-17.5) gm/dL Hct 32.5 L (39.0-53.0) % MCV (80.0-100.0) fL Plt Count 455 H (150-450) k/uL Lymphocytes # (1.0-4.8) k/uL BUN (9-20) mg/dL Creatinine (0.66-1.25) mg/dL Glucose (74-99) mg/dL POC Glucose (mg/dL) 200 H 228 H (70-110) mg/dL 10/31/23 Range/Units 06:05 RBC (4.30-5.90) m/uL Hgb (13.0-17.5) gm/dL Hct (39.0-53.0) % MCV (80.0-100.0) fL Plt Count (150-450) k/uL Lymphocytes # (1.0-4.8) k/uL BUN (9-20) mg/dL Creatinine (0.66-1.25) mg/dL Glucose (74-99) mg/dL POC Glucose (mg/dL) 170 H (70-110) mg/dL Assessment and Plan (1) SUZY (acute kidney injury) Current Visit: Yes Status: Acute Code(s): N17.9 - ACUTE KIDNEY FAILURE, UNSPECIFIED SNOMED Code(s): 09596161 (2) Retention of urine, unspecified Current Visit: Yes Status: Acute Code(s): R33.9 - RETENTION OF URINE, UNSPECIFIED SNOMED Code(s): 441219529 (3) Weakness Current Visit: Yes Status: Acute Code(s): R53.1 - WEAKNESS SNOMED Code(s): 27779112 (4) Diabetes Current Visit: No Status: Acute Code(s): E11.9 - TYPE 2 DIABETES MELLITUS WITHOUT COMPLICATIONS SNOMED Code(s): 16580057 (5) History of pancreatitis Current Visit: Yes Status: Acute Code(s): Z87.19 - PERSONAL HISTORY OF OTHER DISEASES OF THE DIGESTIVE SYSTEM SNOMED Code(s): 06911638708467 Plan: Check CBC and CMP in the morning. Appreciate multiple consultants. Patient seen and evaluated by nurse practitioner, physician in agreement with plan
[2023-10-31 09:29] LABS: African American GFR (CKD) 39 (>60 ml/min/1.73 sqM); Anion Gap 6 mmol/L; Blood Urea Nitrogen 28 mg/dL (9-20); Calcium 8.8 mg/dL (8.4-10.2); Carbon Dioxide 31 mmol/L (22-30); Chloride 104 mmol/L (98-107); Glucose 168 mg/dL (74-99); Magnesium 1.7 mg/dL (1.6-2.3); Non-African American GFR(CKD) 33 (>60 ml/min/1.73 sqM); Phosphorus 2.9 mg/dL (2.5-4.5); Potassium 4.4 mmol/L (3.5-5.1); Sodium 141 mmol/L (137-145)
[2023-10-31 12:02] LABS: Glucose,Whole Blood 186 mg/dL (70-110)
[2023-10-31 17:04] LABS: Glucose,Whole Blood 177 mg/dL (70-110)
--- NOTE | 2023-10-31 18:56 | P.PN ---
Subjective Patient is seen for follow-up for acute kidney injury, mostly obstructive uropathy currently with indwelling Fisher catheter and improved renal function. Serum creatinine is down to 1.8 from about 6.6 at peak. 24-hour urine output at 1900 mL. Objective - Vital Signs Vital signs: Vital Signs Temp 98.2 F 10/31/23 15:59 Pulse 74 10/31/23 15:59 Resp 18 10/31/23 15:59 BP 148/74 10/31/23 15:59 Pulse Ox 98 10/31/23 15:59 FiO2 Intake & Output 10/30/23 10/31/23 10/31/23 18:59 06:59 18:59 Intake Total 120 240 Output Total 187 1900 Balance -1755 -1660 Weight 96 kg Intake: IV 20 Invasive Line 1 20 Oral 120 220 Output: Urine 1874 1900 Other: Voiding Method Indwelling Catheter Indwelling Catheter Indwelling Catheter # Bowel Movements 1 0 - Exam Patient is awake, comfortable, alert oriented x 3. No acute distress. Examination of the heart S1 and S2 Examination of the lungs bilateral breath sounds are heard Abdomen is soft nontender Examination of lower extremities shows 1+ edema. 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 - Labs CBC & Chem 7: 10/30/23 14:55 10/31/23 08:42 Labs: Abnormal Lab Results - Last 24 Hours (Table) 10/30/23 10/31/23 10/31/23 Range/Units 20:01 06:05 08:42 Carbon Dioxide (22-30) mmol/L BUN (9-20) mg/dL Creatinine (0.66-1.25) mg/dL Glucose (74-99) mg/dL POC Glucose (mg/dL) 228 H 170 H (70-110) mg/dL Hemoglobin A1c 6.6 H (<=6.0) % 10/31/23 10/31/23 10/31/23 Range/Units 08:42 12:00 17:01 Carbon Dioxide 31 H (22-30) mmol/L BUN 28 H (9-20) mg/dL Creatinine 1.87 H (0.66-1.25) mg/dL Glucose 168 H (74-99) mg/dL POC Glucose (mg/dL) 186 H 177 H (70-110) mg/dL Hemoglobin A1c (<=6.0) % Assessment and Plan Assessment: 1. Acute kidney injury secondary to urinary retention. Fisher catheter placed. On Flomax. Baseline creatinine near 1 2. Volume overload secondary to urinary retention. Better. 3. Metabolic acidosis secondary to acute kidney injury and IV fluids. 4. Diabetes mellitus. 5. Recent pancreatitis with biliary stent placement at [facility]. Plan: Continue with Fisher catheter.
[2023-10-31 20:01] LABS: Glucose,Whole Blood 195 mg/dL (70-110)
[2023-11-01 06:21] LABS: Glucose,Whole Blood 124 mg/dL (70-110)
[2023-11-01 07:46] LABS: HCT 32.4 % (39.0-53.0); HGB 10.2 gm/dL (13.0-17.5); Hypochromasia Moderate; MCH 31.1 pg (25.0-35.0); MCHC 31.4 g/dL (31.0-37.0); MCV 98.9 fL (80.0-100.0); Mean Platelet Volume 6.9; Platelet Count 463 k/uL (150-450); RBC 3.27 m/uL (4.30-5.90); RDW 13.1 % (11.5-15.5); WBC 5.2 k/uL (3.8-10.6)
[2023-11-01 08:00] LABS: ALT 35 U/L (4-49); AST 55 U/L (17-59); African American GFR (CKD) 70 (>60 ml/min/1.73 sqM); Albumin 2.8 g/dL (3.5-5.0); Alkaline Phosphatase 60 U/L (38-126); Anion Gap 4 mmol/L; Blood Urea Nitrogen 19 mg/dL (9-20); Calcium 8.6 mg/dL (8.4-10.2); Carbon Dioxide 30 mmol/L (22-30); Chloride 106 mmol/L (98-107); Glucose 133 mg/dL (74-99); Non-African American GFR(CKD) 60 (>60 ml/min/1.73 sqM); Potassium 4.4 mmol/L (3.5-5.1); Sodium 140 mmol/L (137-145); Total Bilirubin 0.5 mg/dL (0.2-1.3); Total Protein 5.6 g/dL (6.3-8.2)
--- NOTE | 2023-11-01 09:08 | P.PN ---
Subjective Progress Note Date: 11/01/23 This is an 78-year-old male who presented to the emergency department with complaints of weakness, hematuria and abdominal issues. Patient has had 2 recent admissions to the hospital, 1 being at [facility] for an ERCP and placement of a 7 cm biliary stent. Patient was hospitalized last week here at [facility] for weakness and abdominal pain. Patient was discharged from [facility] last and developed hematuria at home and got progressively weaker. Creatinine on admission was 5.36, and is trending down currently. Patient seen and evaluated by urology who are recommending he be discharged with Fisher catheter. Patient's urine is clear today but still slightly cloudy. Patient seen this morning sitting up in chair at bedside. He reports he is feeling much better. He is tolerating diet. Vitals are stable. Labs for today are not back yet at time of dictation. 11/01/2023 Patient seen and evaulated in chair at beside this morning. His kidney function continues to improve. Urine is more bloody today compared to yesterday. Plan for discharge is SNF and care management is working on that. Objective - Vital Signs Vital signs: Vital Signs Temp 97.6 F 11/01/23 07:56 Pulse 78 11/01/23 08:02 Resp 18 11/01/23 08:02 BP 161/76 11/01/23 07:56 Pulse Ox 100 11/01/23 07:56 FiO2 Intake & Output 10/31/23 11/01/23 11/01/23 18:59 06:59 18:59 Intake Total 240 100 10 Output Total 1900 400 Balance -1660 -300 10 Weight 92.1 kg Intake: IV 20 10 Invasive Line 1 20 10 Oral 220 100 Output: Urine 1900 400 Other: Voiding Method Indwelling Catheter Indwelling Catheter Indwelling Catheter # Bowel Movements 0 - Constitutional General appearance: Present: cooperative, no acute distress - EENT Eyes: Present: PERRLA - Neck Neck: Present: normal ROM. Absent: lymphadenopathy, rigidity - Respiratory Respiratory: bilateral: CTA - Cardiovascular Rhythm: regular Heart sounds: normal: S1, S2 - Gastrointestinal General gastrointestinal: Present: soft. Absent: tenderness - Integumentary Integumentary: Present: normal, normal turgor - Musculoskeletal Musculoskeletal: Present: generalized weakness - Psychiatric Psychiatric: Present: A&O x's 3 - Labs CBC & Chem 7: 11/01/23 07:04 11/01/23 07:04 Labs: Abnormal Lab Results - Last 24 Hours (Table) 10/31/23 10/31/23 10/31/23 Range/Units 08:42 08:42 12:00 RBC (4.30-5.90) m/uL Hgb (13.0-17.5) gm/dL Hct (39.0-53.0) % Plt Count (150-450) k/uL Carbon Dioxide 31 H (22-30) mmol/L BUN 28 H (9-20) mg/dL Creatinine 1.87 H (0.66-1.25) mg/dL Glucose 168 H (74-99) mg/dL POC Glucose (mg/dL) 186 H (70-110) mg/dL Hemoglobin A1c 6.6 H (<=6.0) % Total Protein (6.3-8.2) g/dL Albumin (3.5-5.0) g/dL 10/31/23 10/31/23 11/01/23 Range/Units 17:01 19:58 06:19 RBC (4.30-5.90) m/uL Hgb (13.0-17.5) gm/dL Hct (39.0-53.0) % Plt Count (150-450) k/uL Carbon Dioxide (22-30) mmol/L BUN (9-20) mg/dL Creatinine (0.66-1.25) mg/dL Glucose (74-99) mg/dL POC Glucose (mg/dL) 177 H 195 H 124 H (70-110) mg/dL Hemoglobin A1c (<=6.0) % Total Protein (6.3-8.2) g/dL Albumin (3.5-5.0) g/dL 11/01/23 11/01/23 Range/Units 07:04 07:04 RBC 3.27 L (4.30-5.90) m/uL Hgb 10.2 L (13.0-17.5) gm/dL Hct 32.4 L (39.0-53.0) % Plt Count 463 H (150-450) k/uL Carbon Dioxide (22-30) mmol/L BUN (9-20) mg/dL Creatinine (0.66-1.25) mg/dL Glucose 133 H (74-99) mg/dL POC Glucose (mg/dL) (70-110) mg/dL Hemoglobin A1c (<=6.0) % Total Protein 5.6 L (6.3-8.2) g/dL Albumin 2.8 L (3.5-5.0) g/dL Assessment and Plan (1) SUZY (acute kidney injury) Current Visit: Yes Status: Acute Code(s): N17.9 - ACUTE KIDNEY FAILURE, UNSPECIFIED SNOMED Code(s): 10043016 (2) Retention of urine, unspecified Current Visit: Yes Status: Acute Code(s): R33.9 - RETENTION OF URINE, UNSPEC IFIED SNOMED Code(s): 556060388 (3) Weakness Current Visit: Yes Status: Acute Code(s): R53.1 - WEAKNESS SNOMED Code(s): 85321494 (4) Diabetes Current Visit: No Status: Acute Code(s): E11.9 - TYPE 2 DIABETES MELLITUS WITHOUT COMPLICATIONS SNOMED Code(s): 29454017 (5) History of pancreatitis Current Visit: Yes Status: Acute Code(s): Z87.19 - PERSONAL HISTORY OF OTHER DISEASES OF THE DIGESTIVE SYSTEM SNOMED Code(s): 19525385300206 (6) Gross hematuria Current Visit: Yes Status: Acute Code(s): R31.0 - GROSS HEMATURIA SNOMED Code(s): 740888110 Plan: Check CBC and CMP in the morning. Check PT/INR. Appreciate multiple consultants. Plan for discharge in the next 24-48 hours. Patient seen and evaluated by nurse practitioner, physician in agreement with plan
[2023-11-01 11:39] LABS: Glucose,Whole Blood 177 mg/dL (70-110)
[2023-11-01 11:44] LABS: Prothrombin Time 10.8 sec (10.0-12.5)
[2023-11-01 16:26] LABS: Glucose,Whole Blood 177 mg/dL (70-110)
[2023-11-01] MEDS ORDERED: ZINC OXIDE PASTE (Z-GUARD) 1 APPLIC TOPICAL PRN (16:40)
--- NOTE | 2023-11-01 16:43 | P.PN ---
Subjective Patient is seen for follow-up for acute kidney injury, mostly obstructive uropathy currently with indwelling Fisher catheter and improved renal function. Serum creatinine is down to 1.1 from about 6.6 at peak. 24-hour urine output at 2300 mL. Objective - Vital Signs Vital signs: Vital Signs Temp 97.7 F 11/01/23 15:13 Pulse 62 11/01/23 15:13 Resp 18 11/01/23 15:13 BP 138/73 11/01/23 15:13 Pulse Ox 97 11/01/23 15:13 FiO2 Intake & Output 10/31/23 11/01/23 11/01/23 18:59 06:59 18:59 Intake Total 240 100 138 Output Total 1900 400 550 Balance -1660 -300 -412 Weight 92.1 kg Intake: IV 20 20 Invasive Line 1 20 20 Oral 220 100 118 Output: Urine 1900 400 550 Other: Voiding Method Indwelling Catheter Indwelling Catheter Indwelling Catheter # Bowel Movements 0 - Exam Patient is awake, comfortable, alert oriented x 3. No acute distress. Examination of the heart S1 and S2 Examination of the lungs bilateral breath sounds are heard Abdomen is soft nontender Examination of lower extremities shows 1+ edema. 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 shows right hemiparesis - Labs CBC & Chem 7: 11/01/23 07:04 11/01/23 07:04 Labs: Abnormal Lab Results - Last 24 Hours (Table) 10/31/23 10/31/23 11/01/23 Range/Units 17:01 19:58 06:19 RBC (4.30-5.90) m/uL Hgb (13.0-17.5) gm/dL Hct (39.0-53.0) % Plt Count (150-450) k/uL Glucose (74-99) mg/dL POC Glucose (mg/dL) 177 H 195 H 124 H (70-110) mg/dL Total Protein (6.3-8.2) g/dL Albumin (3.5-5.0) g/dL 11/01/23 11/01/23 11/01/23 Range/Units 07:04 07:04 11:37 RBC 3.27 L (4.30-5.90) m/uL Hgb 10.2 L (13.0-17.5) gm/dL Hct 32.4 L (39.0-53.0) % Plt Count 463 H (150-450) k/uL Glucose 133 H (74-99) mg/dL POC Glucose (mg/dL) 177 H (70-110) mg/dL Total Protein 5.6 L (6.3-8.2) g/dL Albumin 2.8 L (3.5-5.0) g/dL 11/01/23 Range/Units 16:24 RBC (4.30-5.90) m/uL Hgb (13.0-17.5) gm/dL Hct (39.0-53.0) % Plt Count (150-450) k/uL Glucose (74-99) mg/dL POC Glucose (mg/dL) 177 H (70-110) mg/dL Total Protein (6.3-8.2) g/dL Albumin (3.5-5.0) g/dL Assessment and Plan Assessment: 1. Acute kidney injury secondary to urinary retention. Fisher catheter placed. On Flomax. Baseline creatinine near 1 2. Volume overload secondary to urinary retention. Better. 3. Metabolic acidosis secondary to acute kidney injury and IV fluids. 4. Diabetes mellitus. 5. Recent pancreatitis with biliary stent placement at [facility]. Plan: Continue with Fisher catheter Encourage good oral intake..
[2023-11-01 20:17] LABS: Glucose,Whole Blood 193 mg/dL (70-110)
[2023-11-02 03:42] VITALS: RESP 16
[2023-11-02 06:08] LABS: Glucose,Whole Blood 134 mg/dL (70-110)
[2023-11-02 06:42] LABS: HCT 33.2 % (39.0-53.0); HGB 10.5 gm/dL (13.0-17.5); Hypochromasia Moderate; MCH 31.1 pg (25.0-35.0); MCHC 31.5 g/dL (31.0-37.0); MCV 98.6 fL (80.0-100.0); Platelet Count 452 k/uL (150-450); RBC 3.37 m/uL (4.30-5.90); WBC 5.2 k/uL (3.8-10.6)
[2023-11-02 06:54] LABS: ALT 47 U/L (4-49); AST 61 U/L (17-59); African American GFR (CKD) 76 (>60 ml/min/1.73 sqM); Albumin 2.9 g/dL (3.5-5.0); Alkaline Phosphatase 66 U/L (38-126); Anion Gap 5 mmol/L; Blood Urea Nitrogen 16 mg/dL (9-20); Calcium 8.8 mg/dL (8.4-10.2); Carbon Dioxide 30 mmol/L (22-30); Chloride 105 mmol/L (98-107); Glucose 138 mg/dL (74-99); Non-African American GFR(CKD) 66 (>60 ml/min/1.73 sqM); Potassium 4.3 mmol/L (3.5-5.1); Sodium 140 mmol/L (137-145); Total Bilirubin 0.4 mg/dL (0.2-1.3); Total Protein 5.7 g/dL (6.3-8.2)
--- NOTE | 2023-11-02 09:01 | P.DS ---
Providers Date of admission: 10/28/23 18:06 Attending physician: Nicholas Padilla Consults: 10/28/23 18:06 Consult Physician Routine Consulting Provider: Jean Shanks Consult Reason/Comments: SUZY Do you want consulting provider notified?: Yes 10/29/23 10:20 Consult Physician Routine Consulting Provider: Kwadwo Guillory Consult Reason/Comments: urinary retention Do you want consulting provider notified?: Yes Primary care physician: Nicholas Padilla Hospital Course: The patient was admitted due to ARF and obsgtructive uropathy. Fisher was placed and he is now at baseline renal functaion. Due to wekaness he will be placein ECF/rehab to followup in 1-2 weeks. Prognosis is guarded. Pancreatitis is stable. He will need to have stent removed soon. Patient Condition at Discharge: Serious Plan - Discharge Summary Discharge Rx Participant: No New Discharge Prescriptions: Continue metFORMIN HCL [Glucophage] 1,000 mg PO BID-W/MEALS Tamsulosin HCl [Flomax] 0.4 mg PO DAILY ALPRAZolam [Xanax] 0.5 mg PO BID cefUROXime axetiL [Ceftin] 500 mg PO BID 5 Days #10 tab Finasteride [Proscar] 5 mg PO DAILY Rosuvastatin [Crestor] 10 mg PO HS Gabapentin [Neurontin] 300 mg PO BID Metoprolol Tartrate [Lopressor] 50 mg PO BID 30 Days #60 tab Discharge Medication List ALPRAZolam [Xanax] 0.5 mg PO BID 10/26/13 [History] Tamsulosin HCl [Flomax] 0.4 mg PO DAILY 10/26/13 [History] metFORMIN HCL [Glucophage] 1,000 mg PO BID-W/MEALS 10/26/13 [History] Finasteride [Proscar] 5 mg PO DAILY 10/18/23 [History] Gabapentin [Neurontin] 300 mg PO BID 10/18/23 [History] Rosuvastatin [Crestor] 10 mg PO HS 10/18/23 [History] Metoprolol Tartrate [Lopressor] 50 mg PO BID 30 Days #60 tab 10/25/23 [Rx] cefUROXime axetiL [Ceftin] 500 mg PO BID 5 Days #10 tab 10/25/23 [Rx] Follow up Appointment(s)/Referral(s): Nicholas Padilla MD [Primary Care Provider] - 1 Week Discharge Disposition: TRANSFER TO SNF/ECF
--- NOTE | 2023-11-02 10:57 | P.PN ---
Subjective Patient is seen for follow-up for acute kidney injury, mostly obstructive uropathy currently with indwelling Fisher catheter and improved renal function. Serum creatinine is down to 1.0 from about 6.6 at peak. No significant complaints. Objective - Vital Signs Vital signs: Vital Signs Temp 97.7 F 11/02/23 08:24 Pulse 86 11/02/23 08:29 Resp 16 11/02/23 08:29 BP 164/82 11/02/23 08:24 Pulse Ox 99 11/02/23 08:24 FiO2 Intake & Output 11/01/23 11/02/23 11/02/23 18:59 06:59 18:59 Intake Total 256 20 10 Output Total 875 300 200 Balance -619 -280 -190 Weight 91.7 kg Intake: IV 20 20 10 Invasive Line 1 20 20 10 Oral 236 Output: Urine 875 300 200 Other: Voiding Method Indwelling Catheter Indwelling Catheter Indwelling Catheter - Exam Patient is awake, comfortable, alert oriented x 3. No acute distress. Examination of the heart S1 and S2 Examination of the lungs bilateral breath sounds are heard Abdomen is soft nontender Examination of lower extremities shows 1+ edema. 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 - Labs CBC & Chem 7: 11/02/23 05:45 11/02/23 05:45 Labs: Abnormal Lab Results - Last 24 Hours (Table) 11/01/23 11/01/23 11/01/23 Range/Units 11:37 16:24 20:15 RBC (4.30-5.90) m/uL Hgb (13.0-17.5) gm/dL Hct (39.0-53.0) % Plt Count (150-450) k/uL Glucose (74-99) mg/dL POC Glucose (mg/dL) 177 H 177 H 193 H (70-110) mg/dL AST (17-59) U/L Total Protein (6.3-8.2) g/dL Albumin (3.5-5.0) g/dL 11/02/23 11/02/23 11/02/23 Range/Units 05:45 05:45 06:07 RBC 3.37 L (4.30-5.90) m/uL Hgb 10.5 L (13.0-17.5) gm/dL Hct 33.2 L (39.0-53.0) % Plt Count 452 H (150-450) k/uL Glucose 138 H (74-99) mg/dL POC Glucose (mg/dL) 134 H (70-110) mg/dL AST 61 H (17-59) U/L Total Protein 5.7 L (6.3-8.2) g/dL Albumin 2.9 L (3.5-5.0) g/dL Assessment and Plan Assessment: 1. Acute kidney injury secondary to urinary retention. Fisher catheter placed. On Flomax. Baseline creatinine near 1 2. Volume overload secondary to urinary retention. Better. 3. Metabolic acidosis secondary to acute kidney injury and IV fluids. 4. Diabetes mellitus. 5. Recent pancreatitis with biliary stent placement at [facility]. Plan: Continue with Fisher catheter Continue with Proscar and Flomax Encourage good oral intake..
[2023-11-02 11:07] VITALS: BP 147/77; PULSE 62; TEMP 98.1
[2023-11-02 11:35] LABS: Glucose,Whole Blood 167 mg/dL (70-110)
== END 2023-11-02 16:14 | DRG 683 ==
LOC: EC 14:11 → 3SCARD 18:06
PROVIDERS: ADMIT Family Medicine; ATTEND Family Medicine
DX: N17.9 Acute kidney failure, unspecified (principal); E87.20 Acidosis, unspecified; N13.8 Other obstructive and reflux uropathy; E11.22 Type 2 diabetes mellitus with diabetic chronic kidney disease; E78.5 Hyperlipidemia, unspecified; R53.81 Other malaise; E87.70 Fluid overload, unspecified; I12.9 Hypertensive chronic kidney disease with stage 1 through stage 4 chronic kidney disease, or unspecified chronic kidney disease; I25.10 Atherosclerotic heart disease of native coronary artery without angina pectoris; I25.2 Old myocardial infarction; E66.9 Obesity, unspecified; Z68.28 Body mass index [BMI] 28.0-28.9, adult; N18.9 Chronic kidney disease, unspecified; N21.0 Calculus in bladder; R31.0 Gross hematuria; Z79.84 Long term (current) use of oral hypoglycemic drugs; Z79.899 Other long term (current) drug therapy; Z95.5 Presence of coronary angioplasty implant and graft; Z96.89 Presence of other specified functional implants; Z87.440 Personal history of urinary (tract) infections
CPT/HCPCS: 36415; 71046; 80048; 80053; 81001; 83036; 83605; 83690; 83735; 83880; 84100; 84484; 85025; 85027; 85610; 85730; 93005; 96360; 96361; 99285

== ENCOUNTER → 2023-12-08 | Outpatient (CLI) | payer MEDICARE, BC ==
[2023-12-08 16:35] LABS: Basophils # (A) 0.02 X 10*3/uL (0.00-0.10); Basophils % (A) 0.2 %; Eosinophils # (A) 0.07 X 10*3/uL (0.04-0.35); Eosinophils % (A) 0.7 %; HCT 40.4 % (39.6-50.0); HGB 12.5 g/dL (13.0-17.0); Lymphocytes # (A) 1.95 X 10*3/uL (0.90-5.00); Lymphocytes % (A) 19.9 %; MCH 29.3 pg (27.0-32.0); MCHC 30.9 g/dL (32.0-37.0); MCV 94.6 FL (80.0-97.0); Mean Platelet Volume 9.7 FL (9.5-12.2); Monocytes # (A) 0.58 X 10*3/uL (0.20-1.00); Monocytes % (A) 5.9 %; NRBC Per 100 WBC 0 X 10*3/uL (0.00-0.01); Neutrophils # (A) 7.11 X 10*3/uL (1.80-7.70); Neutrophils % (A) 72.7 %; Platelet Count 357 X 10*3/uL (140-440); RBC 4.27 X 10*6/uL (4.40-5.60); RDW 13.4 % (11.5-14.5); WBC 9.79 X 10*3/uL (4.50-10.00)
[2023-12-08 19:44] LABS: BUN/Creat Ratio 18.54 Ratio (12.00-20.00); Blood Urea Nitrogen 24.1 mg/dL (9.0-27.0); Calcium 9.6 mg/dL (8.7-10.3); Carbon Dioxide 20.4 mmol/L (21.6-31.8); Chloride 102 mmol/L (96-109); Glucose 141 mg/dL (70-110); Potassium 4.6 mmol/L (3.5-5.5); Sodium 139 mmol/L (135-145)
== END | disposition home or self-care (01) ==
LOC: LABPAT 11:17
PROVIDERS: ATTEND Urology
CPT/HCPCS: 80048; 85025; 87077; 87086; 87186

== ENCOUNTER 2023-12-15 05:54 | Day surgery (SDC) | payer MEDICARE, BC ==
[2023-12-12 18:19] VITALS: BMI 26.7
--- NOTE | 2023-12-14 22:10 | P.GSHP ---
History of Present Illness H&P Date: 12/14/23 Chief Complaint: Urinary retention q the patient is an 78-year-old white male recently hospitalized with gallstone pancreatitis. He was found to be in urinary retention, with 1450 cc of urine obtained upon Fisher catheter placement. Urodynamic testing has shown normal detrusor function, but he remains unable to void. Cystoscopy shows bladder calculi as well as an obstructing prostate. Urine cultures have shown Proteus mirabilis. He is currently taking Bactrim DS. - Cardiovascular Cardiovascular: Reports high blood pressure - Genitourinary (Male) Genitourinary: Reports as per HPI Past Medical History Past Medical History: Coronary Artery Disease (CAD), Diabetes Mellitus, Hearing Disorder / Deafness, Hyperlipidemia, Hypertension, Myocardial Infarction ([place]), Prostate Disorder Additional Past Medical History / Comment(s): ulcers, Type II diabetic NIDDM, kidney stones Last Myocardial Infarction Date:: 2011 History of Any Multi-Drug Resistant Organisms: None Reported Past Surgical History: Back Surgery, Cholecystectomy, Heart Catheterization With Stent Additional Past Surgical History / Comment(s): fistula, surgery to remove kidney stones. Bi lat cartaract removal Past Anesthesia/Blood Transfusion Reactions: No Reported Reaction Additional Past Anesthesia/Blood Transfusion Reaction / Comment(s): No hx of blood transfusion to date. Date of Last Stent Placement:: 2007 Smoking Status: Never smoker - Past Family History Father Family Medical History: Cancer Additional Family Medical History / Comment(s): skin Brother(s) Family Medical History: Cancer Additional Family Medical History / Comment(s): Stomach cancer. two brothers had cancer. Medications and Allergies Home Medications Medication Instructions Recorded Confirmed Type Tamsulosin HCl [Flomax] 0.4 mg PO QAM 10/26/13 12/12/23 History metFORMIN HCL [Glucophage] 1,000 mg PO BID-W/MEALS 10/26/13 12/12/23 History Finasteride [Proscar] 5 mg PO QAM 10/18/23 12/12/23 History Gabapentin [Neurontin] 300 mg PO BID 10/18/23 12/12/23 History Rosuvastatin [Crestor] 10 mg PO HS 10/18/23 12/12/23 History Metoprolol Tartrate [Lopressor] 50 mg PO BID 30 Days #60 tab 09/10/24 10/28/24 Rx ALPRAZolam [Xanax] 0.5 mg PO BID #6 tab 11/02/23 12/12/23 Rx Aspirin [Adult Low Dose Aspirin EC] 81 mg PO QAM 12/12/23 12/12/23 History Multivitamin(Unknown Dose) 1 dose PO QAM 12/12/23 12/12/23 History Sulfamethoxazole/Trimethoprim 1 each PO BID 12/12/23 12/12/23 History [Sulfamethoxazole/Trimethoprim DS Tablet] Allergies Allergy/AdvReac Type Severity Reaction Status Date / Time No Known Allergies Allergy Verified 12/12/23 17:50 Surgical - Exam - General well developed, well nourished, no distress - Respiratory normal respiratory effort - Abdomen Abdomen: soft, non tender, no guarding, no rigid, no rebound - Genitourinary normal penis with no external lesions, testicles non-tender - Rectum Rectum: normal sphincter tone, no masses, other (Prostate moderately enlarged and smooth) - Psychiatric oriented to time, oriented to person, oriented to place, speech is normal, memory intact Assessment and Plan (1) Bladder calculi Status: Acute Code(s): N21.0 - CALCULUS IN BLADDER SNOMED Code(s): 07899486 (2) Benign prostatic hyperplasia with lower urinary tract symptoms Status: Acute Code(s): N40.1 - BENIGN PROSTATIC HYPERPLASIA WITH LOWER URINARY TRACT SYMP SNOMED Code(s): 890172084 (3) Retention of urine, unspecified Status: Acute Code(s): R33.9 - RETENTION OF URINE, UNSPECIFIED SNOMED Code(s): 134813111 Plan: I discussed the options of surgery versus medication with the patient. I advised him with regard to TURP as opposed to minimally invasive procedures such as Urolift. Potential risks were discussed, including anesthesia, bleeding, infection, retrograde ejaculation, incontinence, erectile dysfunction, and vesical neck contracture. The patient expressed an understanding with regard to possible complications and outcome. Following a lengthy discussion, as a result of shared decision making, the patient has elected to proceed with a TURP and cystolithotripsy.
[2023-12-15] MEDS: LACTATED RINGERS 1,000 ML IV SCH (06:45)
[2023-12-15] MEDS: IV FLUID CONTINUATION 1,000 ML IV ONE ×2 (06:45→15:01)
[2023-12-15] MEDS: LIDOCAINE 1% (10MG/ML) FOR IV START INTRADERMA STA (06:45)
[2023-12-15] MEDS: ONDANSETRON 4 MG/2 ML VIAL IVP STA (06:46)
[2023-12-15] MEDS: DEXAMETHASONE SOD PHOSPHATE 4 MG/ML 1 ML VIAL IVP STA (06:47)
[2023-12-15 06:57] LABS: Glucose,Whole Blood 134 mg/dL (70-110)
[2023-12-15] MEDS ORDERED: HYDROmorphone 0.5 MG/0.5 ML SYRINGE IVP PRN (07:00)
[2023-12-15] MEDS ORDERED: SUCCINYLCHOLINE CHLORIDE 200 MG/10 ML VIAL IV ONE (07:30)
[2023-12-15] MEDS ORDERED: ePHEDrine 50 MG/ML 1 ML VIAL ONE (07:30)
[2023-12-15] MEDS ORDERED: PROPOFOL 10 MG/ML 20 ML VIAL IV ONE (07:30)
[2023-12-15] MEDS ORDERED: PHENYLEPHRINE-0.9% NACL SYG 1,000 MCG/10 ML SYRINGE ONE (07:30)
[2023-12-15] MEDS ORDERED: fentaNYL (PF) 50 MCG/ML 2 ML AMP ONE (07:30)
[2023-12-15] MEDS ORDERED: PHENYLEPHRINE 10 MG/ML VIAL ONE (07:30)
[2023-12-15] MEDS ORDERED: LIDOCAINE 1% INJ 10MG/ML (20 ML MDV) ONE (07:30)
[2023-12-15] MEDS: LACTATED RINGERS 1,000 ML IV ONE (09:30)
--- NOTE | 2023-12-15 12:35 | P.OP ---
Date of Procedure: 12/15/23 Preoperative Diagnosis: Bladder calculus, urinary retention secondary to BPH Postoperative Diagnosis: Same Procedure(s) Performed: Cystoscopy, cystolithotripsy, bipolar transurethral resection of prostate (TURP) Anesthesia: GONZALES Surgeon: Kwadwo Guillory Estimated Blood Loss (ml): 50 IV fluids (ml): 1,100 Pathology: other (Prostate chips, bladder calculus fragments) Condition: stable Disposition: PACU Indications for Procedure: The patient is an 78-year-old white male recently hospitalized with gallstone pancreatitis. He was found to be in urinary retention, with 1450 cc of urine obtained upon Fisher catheter placement. Urodynamic testing has shown normal detrusor function, but he remains unable to void. Cystoscopy shows bladder calculi as well as an obstructing prostate. Urine cultures have shown Proteus mirabilis. He is currently taking Bactrim DS. Operative Findings: 3 to 4 cm bladder calculus. Bilobar BPH with complete occlusion. Description of Procedure: The patient was taken to the operating room and placed in the dorsal lithotomy position, with legs supported in Andrea stirrups. The external genitalia was prepped and draped sterilely. The 30 lens was used to introduce the 21-Gh[place]ian Bailey cystoscopic sheath through the urethra and into the bladder under direct vision. The urethra appeared normal. The prostate showed evidence of lateral lobe enlargement, and was visually occluded. The bladder was examined in its entirety. The ureteral orifices appeared normal. A 3-4 cm jackstone was seen. No tumors were seen. No diverticuli were seen. Using the 1000 micron Holmium laser probe, lithotripsy was performed. Lithotripsy was continued until all calculus fragments could be removed using the Ellik evacuator. Once this was completed, the cystoscope was removed. The 25-Gh[place]ian ACMI resectoscope sheath was introduced into the bladder. Using the bipolar cutting loop, the lateral lobes were resected down to the surgical capsule. The floor of the prostate was then resected, proximal to the verumontanum. Next, the remaining anterior tissue was resected. The residual apical tissue was then carefully resected, with care taken to avoid injury to the external urinary sphincter. The resection was carried down to the surgical capsule in all 4 quadrants. The prostatic fossa was then carefully examined, and any areas of bleeding were controlled with electrocautery. Excellent hemostasis was attained. The resectoscope was withdrawn into the bulbous urethra. The external urinary sphincter remained intact. The prostatic fossa was open. The Nimia evacuator was used to remove all prostate chips from the bladder. These were saved and sent for pathologic examination. The resectoscope was removed, and a 20 [place]ian Fisher catheter was placed. The return was essentially clear. The patient tolerated the procedure well was taken to the recovery room in stable condition.
[2023-12-15] MEDS: ONDANSETRON 4 MG/2 ML VIAL IVP ONE (13:49)
[2023-12-15 15:09] LABS: Glucose,Whole Blood 201 mg/dL (70-110)
[2023-12-15] MEDS ORDERED: ARTIFICIAL TEARS-HYPROMELLOSE DROPS 15 ML BTL BOTH EYES PRN (15:24)
--- NOTE | 2023-12-15 16:17 | P.CON ---
Consult Note - . Consult date: 12/15/23 Assessment/Plan:: This is a 78 y/o post urological surgery performed under general anesthesia, who on awakening felt discomfort in the left eye. He denies any vision changes. The previous history for his eyes, is cataract surgery and post cataract YAG laser treatment. He denies corneal, macular degeneration or glaucoma. Va: w/ correction 20/25 OD, 20/20 OS External: unremarkable, mild to moderate dermatochalsis Conj: quiet, white Cornea: clear, OU. with fluorescein stain, 3.5 x 0.5 mm abrasion mid periphery inferior AC: D&Q Iris: unremarkable A: corneal abrasion, OS, acute. P: recommend topical antibiotic ointment OS for 96 hours, then followed with artificial tears several times daily for a few weeks. Follow up with marine scientist within 2-3 weeks.
[2023-12-15] MEDS: ERYTHROMYCIN 5 MG/GM OPHTH OINT 3.5 GM TUBE RIGHT EYE ONE (16:57)
[2023-12-15] MEDS: PROPARACAINE 0.5% OPHTH DROPS 15 ML BTL BOTH EYES STA (16:57)
[2023-12-15] MEDS: ERYTHROMYCIN 5 MG/GM OPHTH OINT 3.5 GM TUBE LEFT EYE SCH (17:09)
[2023-12-15] MEDS: SULFAMETHOX-TMP 800-160MG 1 EACH TAB PO SCH (21:17)
[2023-12-15] MEDS: GABAPENTIN 300 MG CAP PO SCH (21:17)
[2023-12-15] MEDS: METOPROLOL TARTRATE 50 MG TAB PO SCH (21:17)
[2023-12-15] MEDS: ALPRAZolam 0.5 MG TAB PO SCH (21:17)
[2023-12-16] MEDS: metFORMIN 500 MG TAB PO SCH (06:37)
[2023-12-16] MEDS: TAMSULOSIN 0.4 MG CAP.ER.24H PO SCH (07:56)
[2023-12-16] MEDS: FINASTERIDE 5 MG TAB PO SCH (07:57)
[2023-12-16 15:42] VITALS: BP 101/62; PULSE 68; RESP 18; TEMP 98.1
--- NOTE | 2023-12-16 16:23 | P.DS ---
Providers Attending physician: Kwadwo Guillory Primary care physician: [facility] [employer] Hospital Course: This is a 78-year-old male with history of BPH, and a bladder stone, underwent a cystolitholapaxy with a TURP by Dr. Guillory on December 14. Patient was admitted to the hospital postoperatively. He did have a corneal abrasion, and ophthalmology service was consulted for that. He was discharged home on postop day #1 with a Fisher catheter, at time of discharge he was tolerating a diet, ambulating, pain was controlled Plan - Discharge Summary Discharge Rx Participant: No New Discharge Prescriptions: No Action metFORMIN HCL [Glucophage] 1,000 mg PO BID-W/MEALS Tamsulosin HCl [Flomax] 0.4 mg PO QAM ALPRAZolam [Xanax] 0.5 mg PO BID #6 tab Aspirin [Adult Low Dose Aspirin EC] 81 mg PO QAM Multivitamin(Unknown Dose) 1 dose PO QAM Finasteride [Proscar] 5 mg PO QAM Rosuvastatin [Crestor] 10 mg PO HS Gabapentin [Neurontin] 300 mg PO BID Metoprolol Tartrate [Lopressor] 50 mg PO BID 30 Days #60 tab Sulfamethoxazole/Trimethoprim [Sulfamethoxazole/Trimethoprim DS Tablet] 1 each PO BID Discharge Medication List Tamsulosin HCl [Flomax] 0.4 mg PO QAM 10/26/13 [History] metFORMIN HCL [Glucophage] 1,000 mg PO BID-W/MEALS 10/26/13 [History] Finasteride [Proscar] 5 mg PO QAM 10/18/23 [History] Gabapentin [Neurontin] 300 mg PO BID 10/18/23 [History] Rosuvastatin [Crestor] 10 mg PO HS 10/18/23 [History] Metoprolol Tartrate [Lopressor] 50 mg PO BID 30 Days #60 tab 10/25/23 [Rx] ALPRAZolam [Xanax] 0.5 mg PO BID #6 tab 11/02/23 [Rx] Aspirin [Adult Low Dose Aspirin EC] 81 mg PO QAM 12/12/23 [History] Multivitamin(Unknown Dose) 1 dose PO QAM 12/12/23 [History] Sulfamethoxazole/Trimethoprim [Sulfamethoxazole/Trimethoprim DS Tablet] 1 each PO BID 12/12/23 [History] Follow up Appointment(s)/Referral(s): Kwadwo Guillory MD [STAFF PHYSICIAN] - 12/19/23 1:20 pm Patient Instructions/Handouts: *[facility] - Cystoscopy Discharge Instructions, *[facility] - Fisher Catheter Instructions, *[facility] - (Anesthesia) Discharge Instructions Outpatient Surgery, Cystoscopy (DC), Lithotripsy (DC), Transurethral Prostatectomy (DC) Activity/Diet/Wound Care/Special Instructions: Discharge home with Fisher catheter. Hold aspirin. Resume other home medications, including Bactrim DS. Drink plenty of fluids. No lifting or straining. Patient should take stool softener to avoid constipation. Visiting nurse to remove Fisher catheter early in the morning December 18. Patient to follow-up with Dr. Guillory on December for in the late afternoon. Discharge Disposition: HOME SELF-CARE
== END 2023-12-16 17:14 | disposition home or self-care (01) ==
LOC: OR 05:54 → 4SSUR 11:58 → OR 12-16 17:14
PROVIDERS: ATTEND Urology
DX: N21.0 Calculus in bladder (principal); N40.1 Benign prostatic hyperplasia with lower urinary tract symptoms; R33.8 Other retention of urine; S05.02XA Injury of conjunctiva and corneal abrasion without foreign body, left eye, initial encounter; I25.10 Atherosclerotic heart disease of native coronary artery without angina pectoris; E11.9 Type 2 diabetes mellitus without complications; E78.5 Hyperlipidemia, unspecified; I10 Essential (primary) hypertension; I25.2 Old myocardial infarction; Z79.899 Other long term (current) drug therapy; Z79.84 Long term (current) use of oral hypoglycemic drugs; Z79.82 Long term (current) use of aspirin
CPT/HCPCS: 88305; 82365; 52318; 52601; S0138; J1100; J0690; J2405